=== PATIENT | female | born 1980 | race Caucasian/White ===

== ENCOUNTER 2024-07-15 03:08 | Observation (INO) | payer OTHER, SELFPAY ==
[2024-07-15] VITALS (23 sets, daily range): BP systolic 100–148; BP diastolic 59–90; PULSE 71–114; RESP 10–20; TEMP 36.5–37.6; O2SAT 88–100; BMI 26.1
--- NOTE | 2024-07-15 03:30 | EDS_ITS ---
HPI HPI - GI History of Present Illness Chief Complaint: Abd Pain Informant: patient and spouse/S.O. Narrative Narrative: Presents with spouse evaluation epigastric pain to her back waking her at midnight less than 4 hours prior to arrival. Nausea vomiting x 3. Close her eyes therefore did not evaluate the color no diarrhea. No abdominal surgeries. No urinary symptoms. No fever chills or sweats. No history of similar. She does drink 2-3 alcoholic drinks each night. No history of pancreatitis. No allergies to any medicines. Prior similar symptoms: No PFSH PFSH Medical History Depression Anxiety Asthma Colon polyps Home Medications ?Medication ?Instructions ?Recorded ?Last Taken ?Type albuterol sulfate 90 mcg/actuation 2 puff inhalation Q 4H PRN PRN 07/15/24 Unknown History aerosol inhaler shortness of breath or wheez ing loratadine 10 mg tablet 10 mg PO DAILY 07/15/24 Unkn own History (Allerclear) lorazepam 0.5 mg tablet 0.25 - 0.5 mg PO BID PRN PRN 07/15/24 Unknown History anxiety Allergy/AdvReac Type Severity Reaction Status Date / Time No Known Allergies Allergy Verified 07/15/24 03:09 Social History Smoking Status: Never smoker ROS ROS ED Constitutional Constitutional ED: Denies chills, fever(s) or sweats ENT ENT ED: Denies sore throat Cardiovascular Cardiovascular: Denies chest pain, leg edema, palpitations or racing heartbeat Respiratory/Chest Respiratory/Chest: Denies cough, dyspnea or dyspnea on exertion Gastrointestinal Gastrointestinal: Reports abdominal pain, nausea and vomiting; Denies diarrhea Genitourinary Genitourinary ED: Denies dysuria, hematuria or urinary frequency Musculoskeletal Musculoskeletal: Denies back pain, extremity pain or neck pain Integumentary Denies rash or wounds Neurologic Neurologic: Denies headache(s), paresthesias or weakness EXAM Physical Exam Const Vital Signs: 07/15/24 03:10 07/15/24 05:09 07/15/24 07:00 Temperature 98.1 F Temperature Source Oral Pulse Rate 71 79 79 Respiratory Rate 16 16 16 Blood Pressure 119/81 H 122/69 H 124/74 H Blood Pressure Mean 93 86 90 Pulse Ox 98 100 97 Oxygen Delivery Method Room Air Room Air Room Air Positive well nourished and well developed General Appearance ED: well developed and NAD HEENT Reports moist mucous membranes normocephalic and atraumatic Eyes General Eye ED: Yes normal appearance of both eyes Neck full ROM Chest Wall Chest: Negative for tenderness Resp normal respiratory effort and normal air movement Effort and Inspection: symmetric chest movement; Negative for respiratory distress Cardio regular rate, regular rhythm and no murmurs Peripheral Pulses: pulses 2+ throughout GI normal to inspection, nondistended, normoactive bowel sounds GI Narrative: Tender epigastric and right upper quadrant, negative McBurney's Palpation: Negative for rebound tenderness present Extremity normal to inspection General Extremety ED: Negative for edema or tenderness General Extremity: Negative for edema Neuro oriented x3 and no sensory deficits noted Sensorium / Orientation: awake and alert Skin no rashes or lesions noted and no wounds MDM MDM MDM Narrative Medical decision making narrative: Interventions / MDM: Differential diagnosis: Abdominal pain, nausea and vomiting, cholelithiasis, cholecystitis Diagnosis considered but do not suspect: Pancreatitis however lipase and CT normal. My EKG interpretation: N/A Imaging independently reviewed and interpreted by myself: CT abdomen pelvis: Discussion with radiologist liver hemangioma, mild periportal edema distended gallbladder. Uterine fibroids and mild free fluid in the pelvis. Right upper q uadrant ultrasound: Cholelithiasis External documents reviewed: N/A Test considered but not ordered:N/A ED course: Tender epigastric right upper quadrant pain to her back. IV established will check abdominal labs, fluids morphine Zofran Pepcid ordered. CT scan abdomen pelvis for further evaluation. 0400: White count 16. hCG negative. Awaiting CT and results of other labs. 0635: Labs normal electrolytes lipase and liver enzymes. Pain returning epigastric right upper quadrant. Additional morphine Zofran ordered. With distended gallbladder and leukocytosis will order for right upper quadrant ultrasound for further evaluation. 0820: Ultrasound notes cholelithiasis, no inflammatory changes noted. Reevaluation localized pain right upper quadrant. With her leukocytosis, concerns for clinical cholecystitis. Will discuss with on-call surgeon for disposition plans. I discussed with Dr. Hurtado, will start antibiotics. Will admit under his service. Patient updated. Re-evaluation: stable Disposition discussed with patient/family/significant other: Patient significant other Case discussed with consulting clinician: General surgeon This note was generated with Monkeysee dictation software. It may contain incorrect words, spelling, and punctuation that were not noted in checking the note before signing. Lab Data Attestation: I reviewed the patient's lab results. Labs: Laboratory Results - last 24 hr 07/15/24 03:39 WBC 16.3 H RBC 4.48 Hgb 13.9 Hct 39.9 MCV 89.1 MCH 31.0 MCHC 34.8 RDW Std Deviation 36.9 RDW Coeff of [place] 11.5 L Plt Count 279 MPV 10.9 Immature Gran % (Auto) 0.600 Neut % (Auto) 89.9 H Lymph % (Auto) 7.1 L [place] % (Auto) 1.8 Eos % (Auto) 0.2 Baso % (Auto) 0.4 Absolute Neuts (auto) 14.7 H Absolute Lymphs (auto) 1.15 Nucleated RBC % 0 Sodium 142 Potassium 3.9 Chloride 105 Carbon Dioxide 31.0 Anion Gap 6 BUN 10 Creatinine 0.76 Estim Creat Clear Calc 101.31 Est GFR (MDRD) Af Amer 106 Est GFR (MDRD) Non-Af 88 BUN/Creatinine Ratio 13.1 Glucose 151 H Calcium 9.4 Total Bilirubin 0.20 Direct Bilirubin 0.13 AST 10 L ALT 25 Alkaline Phosphatase 53 Total Protein 7.3 Albumin 3.9 Globulin 3.4 Lipase 35 Serum , Qual NEGATIVE Radiography Diagnostic Testing: Clinical Impression(s) from Imaging Studies Abdomen/Pelvis CT 07/15/24 03:30 IMPRESSION: Hypodense enhancing lesion in the left hepatic lobe is demonstrated. This most likely represents hemangioma. Small hypodense lesion in the right hepatic lobe, cyst or hemangioma. Mild periportal edema. This can be seen in hepatitis. Normally distended loops of small bowel with air-fluid levels may indicate developing gastroenteritis. Multiple uterine fibroids. Enhancing nodule in the right ovary. Consider elective ultrasound for further evaluation if indicated. Small amount of free fluid in the cul-de-sac. One or more dose reduction techniques were used (e.g., Automated exposure control, adjustment of the mA and/or kV according to patient size, use of iterative reconstruction technique). Reading Location: [facility] Gallbladder Ultrasound 07/15/24 07:13 IMPRESSION: Cholelithiasis. Reading Location: [facility] Discharge Plan Triage Chief Complaint: Abd Pain ED Provider: Marcos Casiano Dx/Rx/DC Orders Prescriptions: No Action albuterol sulfate 90 mcg/actuation HFA aerosol inhaler 2 puff INHALATION Q4H PRN PRN (Reason: shortness of breath or wheezing) lorazepam 0.5 mg tablet 0.25 - 0.5 mg PO BID PRN PRN (Reason: anxiety) loratadine [Allerclear] 10 mg tablet 10 mg PO DAILY Primary Care Provider: Eileen Alexis Referrals: Eileen Alexis MD [Primary Care Provider] - Print Language: Uzbek
--- NOTE | 2024-07-15 03:30 | CT_ITS ---
PROCEDURE: ABDOMEN/PELVIS W IV CONT ONLY REASON FOR EXAM: Bandlike abdominal pain radiating to middle of the back with nausea and vomiting. TECHNIQUE: Abdomen and pelvis CT with intravenous contrast. IV CONTRAST: Isovue 370, 91 mL. COMPARISON: No relevant prior FINDINGS: Lung bases: Clear Liver: A 1.4 cm enhancing hypodense nodule in the left hepatic lobe, axial image 31. A 0.9 cm hypodense nodule in the right hepatic lobe, axial image 51. Mild periportal edema. Gallbladder: Mildly distended. No evidence of gallstones. Spleen: Unremarkable. Pancreas: Unremarkable. Adrenals: Unremarkable. Kidneys: Unremarkable. Bladder: Unremarkable. Reproductive Organs: Anteverted uterus. Multiple uterine leiomyomas. Right ovary measures 4.2 times 2 point 9 cm. An irregular enhancing nodule in the right ovary measuring 2.5 x 2.4 cm, axial image 102. Left ovary measures 2.9 x 2.4 cm, axial image 101. Bowel: Scattered air-fluid levels in the small bowel. Fecal debris is seen throughout the colon. No abnormally distended loops of small bowel. Appendix: Normal. Lymph nodes: No suspicious lymph node enlargement. Vasculature: Major vascular structures are unremarkable. Peritoneum / Retroperitoneum: Small amount of fluid in the cul-de-sac. Bones: Unremarkable. CT/Abdomen/Pelvis W IV Cont ONLY IMPRESSION: Hypodense enhancing lesion in the left hepatic lobe is demonstrated. This most likely represents hemangioma. Small hypodense lesion in the right hepatic lobe, cyst or hemangioma. Mild periportal edema. This can be seen in hepatitis. Normally distended loops of small bowel with air-fluid levels may indicate deve loping gastroenteritis. Multiple uterine fibroids. Enhancing nodule in the right ovary. Consider elective ultrasound for further evaluation if indicated. Small amount of free fluid in the cul-de-sac. One or more dose reduction techniques were used (e.g., Automated exposure contr ol, adjustment of the mA and/or kV according to patient size, use of iterative reconstruction technique). Reading Location: [facility]
[2024-07-15] MEDS: 0.9% Normal Saline (1000mL) 1,000 ML 999 ML IV ×2 (03:37→09:13)
[2024-07-15] MEDS: Ondansetron 4 MG/2 ML Vial IV (03:37)
[2024-07-15] MEDS: Morphine 4 MG/ML Syringe IV (03:37)
[2024-07-15 03:45] LABS: Absolute Lymphocyte Count 1.15 X10^3/uL (0.83-4.51); Absolute Neutrophil Count 14.7 X10^3/uL (2.0-7.7); Basophil# 0.06 X10^3/uL; Basophil% 0.4 % (0-1); Eosinophil# 0.03 X10^3/uL; Eosinophils% 0.2 % (0-5); Hematocrit 39.9 % (37-47); Hemoglobin 13.9 g/dL (12.0-15.0); Lymphocyte # 1.15 X10^3/ul (0.83-4.51); Lymphocyte % 7.1 % (19-41); Mean Corp Hgb Conc 34.8 g/dL (32-36); Mean Corpuscular Volume 89.1 fL (81-99); Mean Platelet Vol. 10.9 fl (6.2-12.0); Monocyte% 1.8 % (0-10); NRBC Flagged by Analyzer 0 % (0-5); Neutrophil # 14.67 X10^3/uL (2.7-7.7); Neutrophil % 89.9 % (47-70); Platelet Count 279 K/mm3 (150-450); RBC Distribution Width CV 11.5 % (11.6-14.6); RBC Distribution Width SD 36.9 fl (35.1-43.9); Red Blood Count 4.48 M/mm3 (4.2-5.4); White Blood Count 16.3 K/mm3 (4.4-11.0)
[2024-07-15] MEDS: Famotidine 200 MG/20 ML MDV 20 MG in 0.9% Normal Saline (Pres. free 8 ML 300 MG IV (03:46)
[2024-07-15 03:54] LABS: Internal QC Validated? YES +Cl - CLEAR BKGD; Pregnancy, Serum, hCG Quali. NEGATIVE Negative
--- NOTE | 2024-07-15 06:44 | ED.RN ---
Patient medicated 4mg of IV Zofran and 4mg of IV morphine per MD orders during downtime. See downtime charting.
[2024-07-15 07:03] LABS: AST(SGOT) 10 U/L (15-37); Alanine Aminotransfer ALT/SGPT 25 U/L (13-56); Albumin, Serum 3.9 g/dL (3.2-5.0); Alkaline Phosphatase 53 U/L (45-117); Anion Gap 6 (5-15); BUN 10 mg/dL (7-18); BUN/Creat Ratio 13.1 RATIO (10-20); Bilirubin, Direct 0.13 mg/dL (0.00-0.30); Calcium,Total 9.4 mg/dL (8.5-10.1); Chloride 105 mmol/L (98-107); Creatinine, Serum 0.76 mg/dL (0.55-1.02); EST Glomerular Filtration Rate 88 mL/min (>60); Est Glom Filt Rate - Afr Amer 106 mL/min (>60); Estimated Creatinine Clearance 101.31 ml/min; Globulin 3.4 g/dL (2.2-4.2); Glucose 151 mg/dL (74-106); Lipase 35 U/L (13-75); Potassium 3.9 mmol/L (3.5-5.1); Protein, Total 7.3 g/dL (6.4-8.2); Sodium Level 142 mmol/L (136-145)
--- NOTE | 2024-07-15 07:13 | US_ITS ---
PROCEDURE: GALLBLADDER REASON FOR EXAM: Right upper quadrant pain. COMPARISON: No relevant prior. FINDINGS: Liver: Sagittal measurement of 17.3 cm. Normal echogenicity. Homogeneous parenchyma. Gallbladder: Multiple hyperechogenic foci. No wall thickening or pericholecystic edema. Common bile duct: 0.9 cm . Pancreas: Visualized portions are sonographically unremarkable. Right kidney is unremarkable. 11.5 x 5.6 x 4.8 cm. Right renal cortex measures 1.4 cm. US/Gallbladder IMPRESSION: Cholelithiasis. Reading Location: [facility]
[2024-07-15] MEDS: Piperacil/Tazobactam 4.5 GM in 0.9% Normal Saline (100mL MB+) 100 ML IV (09:14)
--- NOTE | 2024-07-15 10:53 | EKG12_ITS ---
Test Reason : REPEAT Blood Pressure : */* mmHG Vent. Rate : 82 BPM Atrial Rate : 82 BPM P-R Int : 144 ms QRS Dur : 74 ms QT Int : 394 ms P-R-T Axes : 52 58 43 degrees QTcB Int : 460 ms Normal sinus rhythm Normal ECG No previous ECGs available Confirmed by NIA GARCIA, СЕРГЕЙ ([id number]), editor dictionary TORIBIO MCDANIEL ([id number]) on 07/15/2024 2:46:26 PM Referred By: DAJUAN Confirmed By: СЕРГЕЙ KRAMER MD
--- NOTE | 2024-07-15 11:17 | PCM.HP.STD ---
HPI - General General Date of Admission: 07/15/24 Date of Service: 07/15/24 Chief Complaint: Epigastric abdominal pain HPI Narrative KATE STEELE, is a 44 F who presented overnight to the [facility] emergency department with abdominal pain in the upper abdomen that started around midnight last night. She states that she had [place] food for dinner around 430 or 5 PM. The pain started around midnight after she was asleep. This pain awoken her from sleep and was also associated with nausea and vomiting x 3. She states she is really never had similar pain. She denies diarrhea. No other sick contacts. She was seen and evaluated by the ER staff. She was found to have a white blood cell count of 16,000. The rest of her LFTs were unremarkable CT scan showed a distended gallbladder and some mild periportal edema. Subsequent gallbladder ultrasound performed this morning showed gallstones but no gallbladder wall thickening or pericholecystic fluid. Given her persistent pain and elevated white count, she was admitted for planned cholecystectomy. She was started on IV antibiotics. Has had no previous abdominal surgery. I saw the patient in the emergency department this morning. She states that her pain was much better than when she came in but is still present. She currently rated her pain at about a 2 out of 10. [facility] Medical History (Updated 07/15/24 @ 11:[address] Burke Hurtado MD) Symptomatic cholelithiasis Depression Anxiety Asthma Colon polyps Home Medications ?Medication ?Instructions ?Recorded ?Last Taken ?Type albuterol sulfate 90 mcg/actuation 2 puff inhalation Q4H PRN PRN 07/15/24 Unknown History aerosol inhaler shortness of breath or wheezing loratadine 10 mg tablet 10 mg PO DAILY 07/15/24 Unknown History (Allerclear) lorazepam 0.5 mg tablet 0.25 - 0.5 mg PO BID PRN PRN 07/15/24 Unknown History anxiety Allergy/AdvReac Type Severity Reaction Status Date / Time No Known Allergies Allergy Verified 07/15/24 03:09 no significant family history no surgical history Social History Smoking Status: Never smoker ROS Constitutional Constitutional: Reports systems reviewed and no addt'l complaints, except as documented Eyes Eyes: Reports systems reviewed and no addt'l complaints, except as documented ENT HEENT: Reports systems reviewed and no addt'l complaints, except as documented Cardiovascular Cardiovascular: Reports systems reviewed and no addt'l complaints, except as documented Respiratory/Chest Respiratory/Chest: Reports systems reviewed and no addt'l complaints, except as documented Gastrointestinal Gastrointestinal: Reports systems reviewed and no addt'l complaints, except as documented Vital Signs Vital Signs Vital Signs: 07/15/24 03:10 07/15/24 05:09 07/15/24 07:00 Temperature 98.1 F Temperature Source Oral Pulse Rate 71 79 79 Respiratory Rate 16 16 16 Blood Pressure 119/81 H 122/69 H 124/74 H Blood Pressure Mean 93 86 90 Pulse Ox 98 100 97 Oxygen Delivery Method Room Air Room Air Room Air 07/15/24 09:00 07/15/24 09:06 07/15/24 09:07 Temperature 98.1 F 98.1 F Temperature Source Oral Pulse Rate 82 82 82 Respiratory Rate 16 16 Blood Pressure 125/74 H 125/74 H 125/74 H Blood Pressure Mean 91 91 91 Pulse Ox 98 98 98 Oxygen Delivery Method Room Air 07/15/24 11:00 Temperature 98.9 F Temperature Source Oral Pulse Rate 81 Respiratory Rate 16 Blood Pressure 116/75 Blood Pressure Mean 88 Pulse Ox 98 Oxygen Delivery Method Room Air Weight Weight: 166 lb 14.239 oz Body Mass Index (BMI) 26.1 Physical Exam Narrative She is alert and oriented x 3. She is in no acute distress. Head is normocephalic and atraumatic. Pupils are equal round and reactive to light. Abdomen is soft and nondistended. She does have some mild epigastric and right upper quadrant tenderness to palpation. No rebound or guarding. Results Lab / Micro Data 07/15/24 03:39 07/15/24 03:39 Labs: Laboratory Results - last 24 hr 07/15/24 03:39: WBC 16.3 H, RBC 4.48, Hgb 13.9, Hct 39.9, MCV 89.1, MCH 31.0, MCHC 34.8, RDW Std Deviation 36.9, RDW Coeff of [place] 11.5 L, Plt Count 279, MPV 10.9, Immature Gran % (Auto) 0.600, Neut % (Auto) 89.9 H, Lymph % (Auto) 7.1 L, [place] % (Auto) 1.8, Eos % (Auto) 0.2, Baso % (Auto) 0.4, Absolute Neuts (auto) 14.7 H, Absolute Lymphs (auto) 1.15, Nucleated RBC % 0, Sodium 142, Potassium 3.9, Chloride 105, Carbon Dioxide 31.0, Anion Gap 6, BUN 10, Creatinine 0.76, Estim Creat Clear Calc 101.31, Est GFR (MDRD) Af Amer 106, Est GFR (MDRD) Non-Af 88, BUN/Creatinine Ratio 13.1, Glucose 151 H, Calcium 9.4, Total Bilirubin 0.20, Direct Bilirubin 0.13, AST 10 L, ALT 25, Alkaline Phosphatase 53, Total Protein 7.3, Albumin 3.9, Globulin 3.4, Lipase 35, Serum , Qual NEGATIVE Imaging Radiology Impression Abdomen/Pelvis CT 07/15/24 03:30 IMPRESSION: Hypodense enhancing lesion in the left hepatic lobe is demonstrated. This most likely represents hemangioma. Small hypodense lesion in the right hepatic lobe, cyst or hemangioma. Mild periportal edema. This can be seen in hepatitis. Normally distended loops of small bowel with air-fluid levels may indicate developing gastroenteritis. Multiple uterine fibroids. Enhancing nodule in the right ovary. Consider elective ultrasound for further evaluation if indicated. Small amount of free fluid in the cul-de-sac. One or more dose reduction techniques were used (e.g., Automated exposure control, adjustment of the mA and/or kV according to patient size, use of iterative reconstruction technique). Reading Location: [facility] Gallbladder Ultrasound 07/15/24 07:13 IMPRESSION: Cholelithiasis. Reading Location: [facility] Assessment & Plan Assessment/Plan (1) Symptomatic cholelithiasis: PLAN: Plan The patient is a 44-year-old female with right upper quadrant pain/epigastric pain most likely related to symptomatic cholelithiasis. She had a white count of 16,000. Given the white count and persistent pain, the decision was made to bring her in to the hospital for planned cholecystectomy. We discussed the details of the planned procedure as well as risks benefits and alternatives. She wishes to proceed. Surgery will occur later this afternoon once an OR becomes available Charges/Coding Visit Charges Inpatient E&M: 57379 Init Hosp L3
[2024-07-15] MEDS: 0.9% Normal Saline (1000mL) 1,000 ML 15 ML IV (14:11)
--- NOTE | 2024-07-15 14:25 | PCM.PRE.AN2 ---
ASA Classification* ASA Classification ASA Classification: 2 Assessment & Plan Anesthesia* Anesthesia Assessment Anesthesia Assessment: Discussed sedation and/or anesthesia options, risks, benefits, and alternatives with patient/parents/legal guardian/POA. Questions invited. The patient/parents/legal guardian/POA seems to understand and agrees to proceed with anesthesia plan. Reviewed the physical assessment, medical history, allergy history and patient home medications list prior to surgery/procedure/anesthetic and documented any changes. Performed airway and anesthesia risk assessments. Anesthesia Type Anesthesia Type: General History Source History Obtained from:: Patient and Chart Anesthesia Focused Assessment* Temperature: 98.9 F Pulse Rate: 81 Blood Pressure: 116/75 Respiratory Rate: 16 Pulse Ox: 98 Oxygen Delivery Method: Room Air Airway Assessment Mouth opens: >3 cm Mallampati Score: III Teeth Condition: Caps/Crowns ([place] left lower molar. It is tight.) Neck Range of motion (ROM): Full ROM Focused Labs Anesthesia Preop lab: CBC WBC 16.3 K/mm3 (4.4-11.0) H 07/15/24 03:39 07/15/24 RBC 4.48 M/mm3 (4.2-5.4) 07/15/24 03:39 07/15/24 Hgb 13.9 g/dL (12.0-15.0) 07/15/24 03:39 07/15/24 Hct 39.9 % (37-47) 07/15/24 03:39 07/15/24 Plt Count 279 K/mm3 (150-450) 07/15/24 03:39 07/15/24 CHEMISTRY Potassium 3.9 mmol/L (3.5-5.1) 07/15/24 03:39 07/15/24 Sodium 142 mmol/L (136-145) 07/15/24 03:39 07/15/24 BUN 10 mg/dL (7-18) 07/15/24 03:39 07/15/24 Creatinine 0.76 mg/dL (0.55-1.02) 07/15/24 03:39 07/15/24 Glucose 151 mg/dL (74-106) H 07/15/24 03:39 07/15/24 TSH 0.77 uIU/mL (0.358-3.74) 07/26/15 13:31 07/26/15 COAG Urine Test Negative Negative 07/26/15 13:31 07/26/15 Pre-Assessment Diagnosis/Proposed Procedure Planned Operative Procedure(s): Laparoscopic cholecystectomy Anesthesia History 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 When Was Last Pacemaker Check n 07/15/24 10:42 QUESTION #4 FULL TEXT: You/Your Family Experience fever (hyperthermia) with Anesthesia Last Oral Intake Last Oral intake: Last Oral Intake NPO since 00:00 07/15/24 10:42 Meds taken in AM with sips of water? Meds patient instructed to take am of surgery PONV PONV - bullard operator: PONV - bullard operator Female HX of Motion Sickness HX of N/V After Surgery Non-Smoker Duration of Surgery greater than 60 minutes Number of Risk Factors PONV Score Height & Weight Height & Weight: Anesthesia: Height & Weight Height 5 ft 7 in 07/15/24 10:42 Weight: 75.7 kg 07/15/24 10:42 Body Mass Index (BMI) 26.1 07/15/24 10:42 Respiratory Assessment Respiratory Assessment - bullard operator: Respiratory Tract Infection Hx - bullard operator Hx Respiratory Tract Infection No 07/15/24 10:42 Any additional information?: Yes Hx Respiratory Tract Infection: Yes (Patient had a cold last week. Mostly resolved at this point) STOP Sleep Apnea STOP Sleep Apnea - bullard operator: STOP Sleep Apnea - bullard operator Hx Hypertension No 07/15/24 10:42 Hx Sleep Apnea No 07/15/24 10:42 CPAP BIPAP Do you snore loudly (louder No 07/15/24 10:42 than talking or can be heard Do you often feel tired/ No 07/15/24 10:42 fatigued/ sleepy during daytime? Has anyone observed you stop No 07/15/24 10:42 breathing during sleep? STOP Results Negative 07/15/24 10:42 QUESTION #5 FULL TEXT : Do you snore loudly (louder than talking or can be heard through closed doors)? 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 Specify any problems Hx of Preganancy in last 3 No 07/15/24 10:42 Months Nurse Filling Out Transfusion RKALIKASI 07/15/24 10:42 & Questions: Date: 07/15/24 07/15/24 10:42 Time: 11:04 07/15/24 10:42 Patient unable to answer at this time (ie. confused, unrespo /Reproduction History /Reproductive History - bullard operator: /Reproductive Hx- bullard operator Hx Now No 07/15/24 10:42 Gestational Age (in weeks): EDC: Hx Hx Para Hx Section SAB No 07/15/24 10:42 Active Medications Active Medications: Current Medications Generic Name Dose Route Start Last Admin Trade Name Freq PRN Reason Stop Dose Admin Acetaminophen 650 mg 07/15/24 10:42 Acetaminophen 325 Mg Tablet PO Q6H PRN PRN Pain 1-10 Or Fever >100.7 Piperacillin Sod/Tazobactam 50 mls @ 12.5 mls/hr 07/15/24 14:00 Sod 3.375 gm/ Sodium Chloride IV Q8 URMILA Sodium Chloride 1,000 mls @ 15 mls/hr 07/15/24 14:10 07/15/24 14:11 IV 07/21/24 03:29 15 mls/hr .Q48H URMILA Administration Protocol Ondansetron HCl 4 mg 07/15/24 10:42 Ondansetron 4 Mg/2 Ml Vial IV Q8H PRN PRN NAUSEA/VOMITING Oxycodone HCl 2.5 - 5 mg 07/15/24 10:42 Oxycodone 5 Mg Tablet PO Q4H PRN PRN Pain Score 4-10 PFSH Medical History (Updated 07/15/24 @ 11:[address] Burke Hurtado MD) Symptomatic cholelithiasis Depression Anxiety Asthma Colon polyps Medical History no medical history Home Medications ?Medication ?Instructions ?Recorded ?Last Taken ?Type albuterol sulfate 90 mcg/actuation 2 puff inhalation Q4H PRN PRN 07/15/24 Unknown History aerosol inhaler shortness of breath or wheezing loratadine 10 mg tablet 10 mg PO DAILY 07/15/24 Unknown History (Allerclear) lorazepam 0.5 mg tablet 0.25 - 0.5 mg PO BID PRN PRN 07/15/24 Unknown History anxiety Allergy/AdvReac Type Severity Reaction Status Date / Time No Known Allergies Allergy Verified 07/15/24 03:09 Family History no significant family his Surgical History no surgical history Social History Smoking Status: Never smoker Review of Systems (Anesthesia) ROS Narrative System reviewed and no additional complaints, except as documented. Physical Exam Resp normal air movement and clear to auscultation bilaterally
--- NOTE | 2024-07-15 14:30 | GALL_PTH ---
PATIENT: KATE STEELE LOC: MS3 U#:[id number] AGE/SX: 44/F [place] [facility] [place]: Dr. Burke Hurtado MD : 1980 BED: 1 DIS: 07/16/2024 SPEC #: [id number] RECD: 07/16/24 09:50 STATUS: STEPHANIE FLOYD #: [id number] KATHY: 07/15/24 14:[address]: Burke Hurtado DEPT: SURGICAL PATHOLOGY RECD BY: Pinky Villanueva ENTERED: 07/16/24 10:45 SP TYPE: ROSCOE MONTALVO DR: Dr. Eileen Alexis MD Tissues: Gallbladder, NOS Procedures: Surgery Specimen Level III HEADER OPERATION: Laparoscopic cholecystectomy with IOC PRE-OP DIAGNOSIS: Symptomatic cholelithiasis TISSUE SUBMITTED: Gallbladder MICROSCOPIC DIAGNOSIS Gallbladder, cholecystectomy: Chronic ulcerated cholecystitis, cholelithiasis and cholesterolosis. SJ. 07/19/2024 MICROSCOPIC DESCRIPTION Slides are reviewed. GROSS DESCRIPTION Received is one container labeled with the patient's name and designated gallbladder. The specimen consists of a gallbladder measuring 8 cm in length and up to 4 cm in diameter. The external surface is pink-doran, smooth and glistening for the most part. Focally it is granular, hemorrhagic and contains cautery artifact. The gallbladder contains green yellow mucoid bile and multiple yellow mulberry stones and stone fragment measuring in aggregate 4.5 x 4.5 x 1.5 cm and 0.1 to 1.5 cm in greatest dimension. The mucosa also shows several yellowish streaks consistent with cholesterolosis. The mucosa is bile-stained and without any mass lesions. The gallbladder wall measures up to 0.3 cm in thickness. Web Press Jogger sections from the gallbladder and the cystic duct are submitted in one cassette. / SJ:mr 07/16/2024 TC:3 CPT: 77609
[2024-07-15] MEDS: Piperacil/Tazobactam 3.375 GM in 0.9% Normal Saline (50mL MB+) 50 ML IV ×2 (14:50→22:07)
--- NOTE | 2024-07-15 15:00 | RAD_ITS ---
EXAM: Intraoperative fluoroscopy, also with fluoroscopic images obtained CLINICAL HISTORY: Cholecystectomy. COMPARISON: None TECHNIQUE: Intraoperative fluoroscopy was obtained, along with numerous cholestatic images during contrast injection to the cystic duct. RAD/Cholangiogram/ O R,Initial IMPRESSION: Intraoperative fluoroscopy was obtained, along with numerous cholestatic images during contrast injection to the cystic duct. No residual stone is seen within visualized areas. Reading Location: [id number]
--- NOTE | 2024-07-15 15:00 | RAD_ITS ---
EXAM: Intraoperative fluoroscopy, also with fluoroscopic images obtained CLINICAL HISTORY: Cholecystectomy. COMPARISON: None TECHNIQUE: Intraoperative fluoroscopy was obtained, along with numerous cholestatic images during contrast injection to the cystic duct. RAD/O.R. Fluoro for C-Arm IMPRESSION: Intraoperative fluoroscopy was obtained, along with numerous cholestatic images during contrast injection to the cystic duct. No residual stone is seen within visualized areas. Reading Location: [id number]
[2024-07-15] MEDS: Bupiv/Epi 0.25% 30 ML Vial (15:16)
--- NOTE | 2024-07-15 16:30 | PCM.POST.ANE ---
Anesthesia: Postop Eval I Current Vital Signs Temperature: 98.4 F Pulse Rate: 89 Blood Pressure: 139/86 Respiratory Rate: 20 Pulse Ox: 96 Oxygen Delivery Method: Room Air Assessment Airway patent: Yes Spontaneous unlabored respirations: Yes Mental status: Awake nausea: No Vomiting: No Anesthesia Complication: No Fluid Hydration Crystalloid volume administer (ml): 900 Total IV fluid infused: 900 Progress Note Anesthesia document: Postop Eval 1 completed: Yes
--- NOTE | 2024-07-15 16:40 | PCM.OPRPT ---
Procedures Digestive 40xxx-49xxx: [id number] Laparo cholecystectomy/graph Operative Report (Standard) Operative Information Date of Procedure: 07/15/24 Pre-Operative Diagnosis: Acute cholecystitis/cholelithiasis Post-Operative Diagnosis: Same Surgery/Procedure Performed: Laparoscopic cholecystectomy with intraoperative cholangiograms grocery store courtesy clerk: Yes Photo Retoucher: [place] Tasks completed by assistant professor of drama: Closing, Trocar and Retracting Additional visitor services assistant?: No Type of Anesthesia: General and Local RN Documented Start/Stop Times: Operation Date: 07/15/24 14:30 Case Time Into Pre-Op 07/15/24 13:56 Out of Pre-Op 07/15/24 14:34 Into Room 07/15/24 14:42 Anesthesia Start 07/15/24 15:03 Procedure Start 07/15/24 15:03 Procedure End 07/15/24 16:14 Anesthesia End 07/15/24 16:26 Out of Room 07/15/24 16:26 Into Recovery 07/15/24 16:28 Procedure Start Time: 15:03 Procedure Stop Time: 16:14 Select all DRAINS/GRAFTS/IMPLANTS that apply: None Special Medications: Zosyn IV Estimated Blood Loss: 5 mL Specimen collected: Yes Description of specimen(s) removed: Gallbladder Description of surgery: The patient is a 44-year-old female who presented to the emergency room overnight with epigastric and right upper quadrant pain. She was found to have gallstones and had an elevated white blood cell count. Based on the white count and pain, we made the decision to admit her for cholecystectomy. We discussed the details of the planned procedure including the risks benefits and alternatives. She wished to proceed. She was brought to the operating room today following informed consent. Preoperative antibiotics were given. A timeout was performed. She was placed supine the operative table with arms outstretched on arm boards. Her abdomen is then prepped and draped in the usual sterile manner. A 5 mm incision was made just below the umbilicus which a 5 mm trocar was placed optically. This was placed without incident. A 5 mm 0 degree scope was inserted. The abdomen was insufflated. There were no signs of bowel or vascular injury. Next two 5 mm trocars were placed under direct visualization in the right upper quadrant. A 10 mm trocar was placed in the epigastric area. The gallbladder was identified. It was reflected in cephalad direction up and over the liver. The gallbladder wall was somewhat thickened he could certainly see some subcutaneous edema around the gallbladder. This especially true down by the infundibulum. The infundibulum was then dissected carefully. The cystic duct and cystic artery were identified and dissected out circumferentially. A critical view of safety was obtained. There were 2 and only 2 structures going to the gallbladder. The clip home care scheduler was then used to place a clip on the gallbladder side the cystic duct. Scissors were then used to make a small ductotomy. Cholangiogram catheter was then inserted and cholangiograms were then performed using about 10 cc of contrast. This showed good opacification of the biliary tree without any obvious filling defects. The cholangiogram catheter was then removed. 310 mm clips were placed across the cystic duct stump. The cystic artery was then clipped with 2 clips proximally and 1 distally. This too was then transected. After this the gallbladder was then bovied off the undersurface of the liver. There was quite a bit of edema present. Once the gallbladder was free was placed into a bag and brought out through the 10 mm trocar site. We did need to extend the skin as well as the fascial incision to extract the large, stone filled and edematous gallbladder. Once this was performed the trocar was replaced. The right upper quadrant is then copiously irrigated hemostasis was excellent. The fascia at the epigastric incision site was closed using 0 PDS with the aid of the fascial closure device. The remaining trocars were opened up and insufflation was allowed to escape. Local anesthetic was injected into each of the incisions. The incisions were then closed with 4-0 Vicryl. Skin glue was applied as dressing. She was awakened anesthesia and taken to PACU in good condition.\ Marleny MCDERMOTT was utilized as a assistant women's basketball coach. Her role included holding the camera, inserting trocars under my supervision, retracting the gallbladder, and assisting with skin closure Surgical Findings: Normal cholangiograms Complications Complications: No Admit VTE Documentation VTE Present on Admission: No VTE Mechan Device Prophylaxis: SCD's VTE Pharm Prophylaxis ordered?: No Reason prophylaxis not ordered: Treatment Not Indicated
[2024-07-15] MEDS: Acetaminophen 325 MG Tablet 650 MG PO (21:07)
--- NOTE | 2024-07-15 23:42 | POSTOPAN2_ITS ---
Anesthesia Postop Eval I Sum Postop Eval Completion status Anesthesia document: Postop Eval 1 completed: Yes Anesthesia Postop Eval I Summary Anesthesia Postop Eval I Summary: Anesthesia Postop Eval I: Assessment Summary Airway patent Yes 07/15/24 16:31 [email or web address] Spontaneous unlabored Yes 07/15/24 16:31 [email or web address] [email or web address] respirations Mental status Awake 07/15/24 16:31 [email or web address] [email or web address] nausea No 07/15/24 16:31 LIQUOR [email or web address] Vomiting No 07/15/24 16:31 [email or web address] [email or web address] Anesthesia Postop Eval I: Fluid Summary Crystalloid volume administer 900 07/15/24 16:31 [email or web address] (ml) Colloids volume administered ( ml) Blood Product volume administered (ml) Total IV fluid infused 900 07/15/24 16:31 [email or web address] Anesthesia Postop Eval I: Summary Notes Anesthesia Complication No 07/15/24 16:31 [email or web address] [email or web address] Anesthesia Complication Comment: Post-operative progress note Anesthesia: Postop Eval II Evaluation Mental status: Awake and Calm Pain Level: 1 nausea: No Vomiting: No Complications Anesthesia Complication: No
--- NOTE | 2024-07-15 23:42 | PCM.POSTANE2 ---
Anesthesia Postop Eval I Sum Postop Eval Completion status Anesthesia document: Postop Eval 1 completed: Yes Anesthesia Postop Eval I Summary Anesthesia Postop Eval I Summary: Anesthesia Postop Eval I: Assessment Summary Airway patent Yes 07/15/24 16:31 SOLAR FIELD INSTALLATION CREW [email or web address] Spontaneous unlabored Yes 07/15/24 16:31 SOLAR FIELD INSTALLATION CREW MEMBER.[email or web address] respirations Mental status Awake 07/15/24 16:31 SOLAR FIELD INSTALLATION CREW [email or web address] nausea No 07/15/24 16:31 SOLAR FIELD INSTALLATION CREW [email or web address] Vomiting No 07/15/24 16:31 SOLAR FIELD INSTALLATION CREW [email or web address] Anesthesia Postop Eval I: Fluid Summary Crystalloid volume administer 900 07/15/24 16:31 SOLAR FIELD INSTALLATION CREW [email or web address] (ml) Colloids volume administered ( ml) Blood Product volume administered (ml) Total IV fluid infused 900 07/15/24 16:31 SOLAR FIELD INSTALLATION CREW [email or web address] Anesthesia Postop Eval I: Summary Notes Anesthesia Complication No 07/15/24 16:31 SOLAR FIELD INSTALLATION CREW MEMBER.[email or web address] Anesthesia Complication Comment: Post-operative progress note Anesthesia: Postop Eval II Evaluation Mental status: Awake and Calm Pain Level: 1 nausea: No Vomiting: No Complications Anesthesia Complication: No
[2024-07-16 02:11] VITALS: BP 120/71; PULSE 80; RESP 16; TEMP 37.3; O2SAT 98
[2024-07-16] MEDS: oxyCODONE 5 MG Tablet PO ×3 (02:14→12:58)
[2024-07-16] MEDS: Piperacil/Tazobactam 3.375 GM in 0.9% Normal Saline (50mL MB+) 50 ML IV (06:39)
[2024-07-16 06:42] LABS: Absolute Lymphocyte Count 1.31 X10^3/uL (0.83-4.51); Absolute Neutrophil Count 13.2 X10^3/uL (2.0-7.7); Basophil# 0.03 X10^3/uL; Basophil% 0.2 % (0-1); Hematocrit 36.8 % (37-47); Hemoglobin 12.4 g/dL (12.0-15.0); Lymphocyte # 1.31 X10^3/ul (0.83-4.51); Lymphocyte % 8.5 % (19-41); Mean Corp Hgb Conc 33.7 g/dL (32-36); Mean Corpuscular Hgb 30.4 pg (27.0-32.0); Mean Corpuscular Volume 90.2 fL (81-99); Mean Platelet Vol. 11.6 fl (6.2-12.0); Monocyte# 0.84 X10^3/uL; Monocyte% 5.4 % (0-10); NRBC Flagged by Analyzer 0 % (0-5); Neutrophil % 85.4 % (47-70); Platelet Count 283 K/mm3 (150-450); RBC Distribution Width CV 11.6 % (11.6-14.6); RBC Distribution Width SD 38.4 fl (35.1-43.9); Red Blood Count 4.08 M/mm3 (4.2-5.4); White Blood Count 15.5 K/mm3 (4.4-11.0)
[2024-07-16 07:13] LABS: ALB/GLOB Ratio 1.1 RATIO (0.9-2.4); AST(SGOT) 48 U/L (15-37); Alanine Aminotransfer ALT/SGPT 71 U/L (13-56); Albumin, Serum 3.2 g/dL (3.2-5.0); Alkaline Phosphatase 46 U/L (45-117); Anion Gap 4 (5-15); BUN 9 mg/dL (7-18); BUN/Creat Ratio 13.5 RATIO (10-20); Chloride 107 mmol/L (98-107); Creatinine, Serum 0.67 mg/dL (0.55-1.02); EST Glomerular Filtration Rate 102 mL/min (>60); Est Glom Filt Rate - Afr Amer 124 mL/min (>60); Estimated Creatinine Clearance 114.92 ml/min; Globulin 2.8 g/dL (2.2-4.2); Glucose 108 mg/dL (74-106); Potassium 3.5 mmol/L (3.5-5.1); Sodium Level 138 mmol/L (136-145)
[2024-07-16 08:02] VITALS: BP 102/61; PULSE 80; RESP 16; TEMP 36.9; O2SAT 98
--- NOTE | 2024-07-16 08:29 | PCM.PN.SRG ---
Subjective Subjective The patient is doing well this morning. Only complaint is incisional pain near the epigastric incision site. No fevers or chills. She has been eating fine. Pain control has been adequate. She is hopeful for discharge today Objective Data Objective Data Vital Signs: Vital Signs Temp Pulse Resp BP Pulse Ox O2 Del Method O2 Flow Rate 98.4 F 80 16 102/61 98 Room Air 2 07/16/24 08:02 07/16/24 08:02 07/16/24 08:02 07/16/24 08:02 07/16/24 08:02 07/16/24 08:02 07/15/24 18:06 Oxygen Flow Rate (L/min) 2 Oxygen Delivery Method Room Air Weight: 166 lb 14.239 oz Body Mass Index (BMI) 26.1 Intake & Output: Intake and Output for Last 24 Hours 07/14/24 07/15/24 07/16/24 23:59 23:59 23:59 Intake Total 3210 / 3210 50 / 50 Balance 3210 / 3210 50 / 50 Lab / Micro Data 07/16/24 05:16 07/16/24 05:16 Labs: Laboratory Results - last 24 hr 07/16/24 05:16: WBC 15.5 H, RBC 4.08 L, Hgb 12.4, Hct 36.8 L, MCV 90.2, MCH 30.4, MCHC 33.7, RDW Std Deviation 38.4, RDW Coeff of [place] 11.6, Plt Count 283, MPV 11.6, Immature Gran % (Auto) 0.500, Neut % (Auto) 85.4 H, Lymph % (Auto) 8.5 L, [place] % (Auto) 5.4, Eos % (Auto) 0.0, Baso % (Auto) 0.2, Absolute Neuts (auto) 13.2 H, Absolute Lymphs (auto) 1.31, Nucleated RBC % 0, Sodium 138, Potassium 3.5, Chloride 107, Carbon Dioxide 27.0, Anion Gap 4 L, BUN 9, Creatinine 0.67, Estim Creat Clear Calc 114.92, Est GFR (MDRD) Af Amer 124, Est GFR (MDRD) Non-Af 102, BUN/Creatinine Ratio 13.5, Glucose 108 H, Calcium 8.0 L, Total Bilirubin 0.60, AST 48 H, ALT 71 H, Alkaline Phosphatase 46, Total Protein 6.0 L, Albumin 3.2, Globulin 2.8, Albumin/Globulin Ratio 1.1 Radiography Diagnostic Testing: Radiology Impression C-Arm Fluoroscopy 07/15/24 15:00 IMPRESSION: Intraoperative fluoroscopy was obtained, along with numerous cholestatic images during contrast injection to the cystic duct. No residual stone is seen within visualized areas. Reading Location: [id number] Cholangiogram 07/15/24 15:00 IMPRESSION: Intraoperative fluoroscopy was obtained, along with numerous cholestatic images during contrast injection to the cystic duct. No residual stone is seen within visualized areas. Reading Location: [id number] Physical Exam Narrative She is alert and oriented x 3. She is in no acute distress. Abdomen is soft and appropriately tender. Assessment & Plan Assessment/Plan (1) Symptomatic cholelithiasis: PLAN: Plan Patient is a 44-year-old female status post a successful laparoscopic cholecystectomy for acute cholecystitis/cholelithiasis. She is doing well postoperatively on day 1. I feel that she is okay for discharge. She would like to go home. Home-going instructions were discussed with her again. Recommend follow-up in 2 weeks. She may certainly call if any questions or concerns arise Charges/Coding Visit Charges Inpatient E&M: 82663 Subs Hosp L1
--- NOTE | 2024-07-16 08:31 | PCM.DC.SUM ---
Providers Date of Admission: 07/15/24 Date of Discharge: 07/16/24 Primary Care Physician: Dr. Eileen Alexis MD None Reason For Visit: CHOLELITHIASIS Diagnosis Discharge Diagnosis (1) Symptomatic cholelithiasis: Status: Acute Code(s): K80.20 - Calculus of gallbladder without cholecystitis without obstruction Plan Patient is a 44-year-old female status post a successful laparoscopic cholecystectomy for acute cholecystitis/cholelithiasis. She is doing well postoperatively on day 1. I feel that she is okay for discharge. She would like to go home. Home-going instructions were discussed with her again. Recommend follow-up in 2 weeks. She may certainly call if any questions or concerns arise Medications at Discharge Home Medications albuterol sulfate 90 mcg/actuation aerosol inhaler 2 puff inhalation Q4H PRN PRN shortness of breath or wheezing 07/15/24 loratadine 10 mg tablet (Allerclear) 10 mg PO DAILY 07/15/24 lorazepam 0.5 mg tablet 0.25 - 0.5 mg PO BID PRN PRN anxiety 07/15/24 oxycodone-acetaminophen 5 mg-325 mg tablet (Percocet) 1 tab PO Q8H PRN pain 3 days #10 tabs 07/16/24 Hospital Course Operations cholecystecomy Procedures None Summary of Care Provided Minutes Spent on Discharge: 15 Hospital Course: The patient is a 44-year-old female who presented to the [facility] emergency department on the day of admission with complaints of epigastric and right upper quadrant pain. She was seen evaluate by the ER staff. She was found to have a white blood cell count of 16,000. She had persistent pain. All the rest of her labs were fairly unremarkable. Due to her white blood cell count and pain, the decision was made to admit the patient and plan for a laparoscopic cholecystectomy with cholangiograms. This was performed on the date of admission. She tolerated the surgery well. There were no complications or issues. The morning after surgery she states that she is doing well albeit sore at the incisions. She would like to be discharged to home. I think this is appropriate. Home-going instructions were discussed with her. Physical Exam Narrative She is alert and oriented x 3. She is in no acute distress. Abdomen is soft and appropriately tender. Weight / BMI Weight Weight: 166 lb 14.239 oz Body Mass Index (BMI) 26.1 ABG / Lab / Microbiology Data 07/16/24 05:16 07/16/24 05:16 Laboratory: Laboratory Results - last 24 hr 07/16/24 05:16: WBC 15.5 H, RBC 4.08 L, Hgb 12.4, Hct 36.8 L, MCV 90.2, MCH 30.4, MCHC 33.7, RDW Std Deviation 38.4, RDW Coeff of [place] 11.6, Plt Count 283, MPV 11.6, Immature Gran % (Auto) 0.500, Neut % (Auto) 85.4 H, Lymph % (Auto) 8.5 L, [place] % (Auto) 5.4, Eos % (Auto) 0.0, Baso % (Auto) 0.2, Absolute Neuts (auto) 13.2 H, Absolute Lymphs (auto) 1.31, Nucleated RBC % 0, Sodium 138, Potassium 3.5, Chloride 107, Carbon Dioxide 27.0, Anion Gap 4 L, BUN 9, Creatinine 0.67, Estim Creat Clear Calc 114.92, Est GFR (MDRD) Af Amer 124, Est GFR (MDRD) Non-Af 102, BUN/Creatinine Ratio 13.5, Glucose 108 H, Calcium 8.0 L, Total Bilirubin 0.60, AST 48 H, ALT 71 H, Alkaline Phosphatase 46, Total Protein 6.0 L, Albumin 3.2, Globulin 2.8, Albumin/Globulin Ratio 1.1 Radiography Diagnostic Testing: Radiology Impression C-Arm Fluoroscopy 07/15/24 15:00 IMPRESSION: Intraoperative fluoroscopy was obtained, along with numerous cholestatic images during contrast injection to the cystic duct. No residual stone is seen within visualized areas. Reading Location: [id number] Cholangiogram 07/15/24 15:00 IMPRESSION: Intraoperative fluoroscopy was obtained, along with numerous cholestatic images during contrast injection to the cystic duct. No residual stone is seen within visualized areas. Reading Location: [id number] D/C Instructions Discharge Diet: Low fat / Low cholesterol Discharge Activity: Return to Normal Activity and May Shower May shower in (days): 1 Ice area for (Minutes): 30 Lifting Restrictions: Keep lifting under 20 pounds for about 3 to 4 weeks Call your doctor if your incision/area has: Continuous Slow Oozing, Sudden Increased Bleeding, Increased Pain/ Swelling, Increased Redness, Foul Smelling Discharge and Swelling at the incision site Call your doctor if you observe: Fever of 101 or Higher Remove Dressing in: leave until fall off (Skin glue will fall off in about 2 to 3 weeks) Cleanse incision/area with: Soap & Water DC O2, CPAP, BIPAP Needs Home O2 Discharge instructions: No DC home with Oxygen: No Please Follow Up With: Burke Hurtado MD When: 2 weeks Meaningful Use Info Meaningful Use Meaningful Use Diagnoses (Choose all that apply): None applicable Ischemic Stroke Statin Dosing Therapy Reference: STATIN DOSE THERAPY REFERENCE: * Patients > 75 years receive moderate or high dose statin therapy. * Patients 75 years or YOUNGER should receive HIGH intensity statin dose unless contraindicated. You will be required to document reason for non-treatment if statin daily dose does not meet guidelines. HIGH DOSE STATIN THERAPY DAILY Atorvastatin > than or = to 40 mg Rosuvastatin > than or = to 20 mg Amlodipine + Atorvastatin > than or = to 2.5/40 mg Ezetimibe + Simvastatin 10/80 mg Simvastatin 80mg Discharge Plan Admission Admit Date/Time: 07/15/24 09:31 Primary Reason for Your Visit: Acute cholecystitis/cholelithiasis Attending Provider: Burke Hurtado Primary Care Provider: Eileen Alexis Discharge Orders/Prescriptions Prescriptions: New oxycodone-acetaminophen [Percocet] 5-325 mg tablet 1 tab PO Q8H PRN (Reason: pain) 3 Days Qty: 10 0RF Continued albuterol sulfate 90 mcg/actuation HFA aerosol inhaler 2 puff INHALATION Q4H PRN PRN (Reason: shortness of breath or wheezing) lorazepam 0.5 mg tablet 0.25 - 0.5 mg PO BID PRN PRN (Reason: anxiety) loratadine [Allerclear] 10 mg tablet 10 mg PO DAILY Referrals / Follow Up: Eileen Alexis MD [Primary Care Provider] - Disposition Disposition (needs filled in before D/C Order can be placed): Home, Self Care
[2024-07-16] MEDS: Acetaminophen 325 MG Tablet 650 MG PO (11:09)
[2024-07-16] MEDS: Ondansetron 4 MG/2 ML Vial IV (12:58)
[2024-07-16 13:17] VITALS: BP 113/69; PULSE 79; RESP 16; TEMP 37.1; O2SAT 98
== END 2024-07-16 13:16 | disposition home or self-care (01) ==
LOC: ED 09:57 → MS3 10:15
PROVIDERS: Admitting Provider Surgery; Emergency Provider Emergency Medicine; PCP Internal Medicine; Visit Provider Surgery
PROC: (CPT 47610; principal; 2024-07-15 14:10)
DX: K80.12 Calculus of gallbladder with acute and chronic cholecystitis without obstruction (principal); F41.9 Anxiety disorder, unspecified; J45.909 Unspecified asthma, uncomplicated
CPT/HCPCS: 47563; 00790; 99284; 36415; 74177; 74300; 76000; 76705; 80048; 80053; 80076; 83690; 84703; 85025; 88304; 93005; 96361; 96365; 96366; 96375; 99221; 99285; Q9967; A4216; C1769; G0378; J2405

== ENCOUNTER 2025-05-27 15:43 | Emergency (ER) | payer OTHER, SELFPAY ==
[2025-05-27 15:43] VITALS: BP 130/104; PULSE 105; RESP 18; TEMP 36.7; O2SAT 99; BMI 25.6
--- NOTE | 2025-05-27 16:24 | CT_ITS ---
EXAM: CT Abdomen and Pelvis With Intravenous Contrast CLINICAL INDICATION: ABDOMINAL PAIN TECHNIQUE: Axial computed tomography images of the abdomen and pelvis with intravenous contrast. This CT exam was performed using one or more of the following dose reduction techniques: automated exposure control, adjustment of the mA and/or kV according to patient size, and/or use of iterative reconstruction technique. CONTRAST: 100 cc Isovue-300 RADIATION DOSE: CTDIvol = 10.5 mGy, DLP = 612.9 mGy-cm COMPARISON: CT Abdomen Pelvis dated 07/15/2024 FINDINGS: LUNG BASES: Unremarkable. No mass. No consolidation. ABDOMEN: LIVER: Fatty liver. Hypodense lesions of the left and right hepatic lobe, likely cyst or hemangioma, unchanged. GALLBLADDER AND BILE DUCTS: Gallbladder is surgically absent. No ductal dilation. PANCREAS: Unremarkable. No mass. No ductal dilation. SPLEEN: Unremarkable. No splenomegaly. ADRENALS: Unremarkable. No mass. KIDNEYS AND URETERS: Unremarkable. No stones within either kidney. No hydronephrosis. STOMACH AND BOWEL: Fecal retention in the colon consistent with constipation. No obstruction. No mucosal thickening. PELVIS: APPENDIX: Normal appendix. BLADDER: Unremarkable. No mass. REPRODUCTIVE: Multiple uterine fibroids. ABDOMEN and PELVIS: INTRAPERITONEAL SPACE: Unremarkable. No free air. No significant fluid collection. BONES/JOINTS: No acute fracture. No dislocation. SOFT TISSUES: Unremarkable. VASCULATURE: Unremarkable. No abdominal aortic aneurysm. LYMPH NODES: Unremarkable. No enlarged lymph nodes. CT/Abdomen/Pelvis W IV Cont ONLY IMPRESSION: 1. Normal appendix. 2. Fatty liver. Hypodense lesions of the left and right hepatic lobe, likely cyst or hemangioma, unchanged. 3. Fecal retention in the colon consistent with constipation. 4. No obstructive uropathy. 5. Multiple uterine fibroids. Reading Location: [id number]
--- NOTE | 2025-05-27 16:25 | ED.VIS.GI ---
HPI HPI - GI History of Present Illness Chief Complaint: Abd Pain Abdominal Pain/Flank Pain Onset: Days (2) Context: Sudden Onset Timing: Continuous Quality: Sharp Location: LUQ Worsened by: - (Walking) Relieved by: Nothing Nausea/Vomiting/Emesis GI Symptom: Positive for Nausea and Vomiting Quality: Positive for Nonbilious Diarrhea/Melena/Hematochezia GI Symptom: Negative for Diarrhea, Melena or Hematochezia Associated Symptoms Associated Symptoms: Negative for Dysuria, Frequency or Hematuria Narrative Narrative: Patient presents with abdominal pain and back pain that began 2 days ago. Patient states it is gradually getting worse. Patient states it began rather suddenly. Patient describes it as sharp. Patient states it starts in her back and then radiates to her left upper abdomen. Patient states it is worse when she walks. Patient states nothing makes it better. Patient states she has been vomiting up yellow emesis. Patient states that there was 1 episode where there was something that look like coffee grounds. Patient states this resolved. Patient has had no further episodes of coffee-ground emesis. Patient denies any hematemesis. Patient denies any diarrhea, melena, or hematochezia. Patient denies any dysuria, frequency, or hematuria. [facility] Medical History Acute cholecystitis due to biliary calculus Symptomatic cholelithiasis Depression Anxiety Asthma Colon polyps Home Medications ?Medication ?Instructions ?Recorded ?Last Taken ?Type albuterol sulfate 90 mcg/actuation 2 puff inhalation Q4H PRN PRN 07/15/24 Unknown History aerosol inhaler shortness of breath or wheezing lorazepam 0.5 mg tablet 0.25 - 0.5 mg PO BID PRN PRN 07/15/24 Unknown History anxiety hydrocodone-acetaminophen 5-325mg 1 tab PO Q6H PRN PRN Pain 3 days 05/27/25 Unknown Rx 5mg-325mg #10 TABLETS ondansetron 4 mg disintegrating 4 mg PO Q8H PRN PRN Nausea #10 tabs 05/27/25 Unknown Rx tablet Allergy/AdvReac Type Severity Reaction Status Date / Time No Known Allergies Allergy Verified 05/27/25 15:43 Family History no significant family his Surgical History S/P cholecystectomy Social History Smoking Status: Never smoker ROS ROS ED Constitutional Constitutional ED: Denies chills or fever(s) Eyes Eyes: Denies blurry vision or change in vision ENT ENT ED: Denies rhinorrhea or sore throat Cardiovascular Cardiovascular: Denies chest pain or palpitations Respiratory/Chest Respiratory/Chest: Denies cough or dyspnea Gastrointestinal Gastrointestinal: Reports abdominal pain, nausea and vomiting Genitourinary Genitourinary ED: Denies dysuria or hematuria Musculoskeletal Musculoskeletal: Reports back pain; Denies neck pain Integumentary Denies abscess or rash Neurologic Neurologic: Reports headache(s); Denies weakness Allergic/Immunologic Allergic/Immunologic ED: Denies mouth swelling or urticaria EXAM Physical Exam Const Vital Signs: 05/27/25 15:43 05/27/25 17:43 05/27/25 19:00 Temperature 98.1 F Temperature Source Oral Pulse Rate 105 H 79 Respiratory Rate 18 15 Blood Pressure 130/104 H 106/74 110/80 Blood Pressure Mean 112 84 90 Pulse Ox 99 96 97 Oxygen Delivery Method Room Air Room Air Room Air Positive well nourished and well developed General Appearance ED: well developed and NAD HEENT Reports moist mucous membranes normocephalic and atraumatic Neck supple and no JVD Resp normal respiratory effort and clear to auscultation bilaterally Cardio regular rate and regular rhythm GI non-distended Palpation: soft and tender epigastric, LLQ, LUQ and RUQ; Negative for guarding or rebound tenderness present Extremity full ROM Neuro CN's II-XII intact bilaterally, moves all extremities and no sensory deficits noted Sensorium / Orientation: alert Motor Exam: strength 5/5 throughout Psych mental status grossly normal MDM MDM MDM Narrative Medical decision making narrative: Differential diagnosis includes pancreatitis, peptic ulcer disease, duodenal ulcer, bowel obstruction, perforation, electrolyte abnormality, and dehydration. CBC will be obtained to assess for leukocytosis and anemia. Comprehensive metabolic profile will be obtained to assess for hepatic function, renal function, and and electrolyte abnormality. Lipase will be obtained to assess for pancreatitis. Urinalysis will be obtained to assess for urinary tract infection and hematuria. Serum hCG will be obtained to assess for . CT scan of the abdomen pelvis will be obtained to assess for bowel obstruction, perforation, pancreatitis, and pyelonephritis. History & Record Review Additional record(s) reviewed:: Prior labs Lab Data Attestation: I reviewed the patient's lab results. Lab results narrative: CBC was reviewed. There is a leukocytosis of 15.2. This is consistent with previous results. Comprehensive metabolic profile was reviewed. Glucose was mildly elevated at 124 and ALT was slightly elevated at 51. The remainder is within normal limits. Lipase was reviewed and was normal at 26. Serum hCG was reviewed and was negative. Urinalysis was reviewed. There is no evidence of urinary tract infection or hematuria. Labs: Laboratory Results - last 24 hr 05/27/25 05/27/25 16:05 17:05 WBC 15.2 H RBC 4.93 Hgb 15.1 H Hct 44.2 MCV 89.7 MCH 30.6 MCHC 34.2 RDW Std Deviation 38.4 RDW Coeff of [place] 11.8 Plt Count 383 MPV 10.5 Immature Gran % (Auto) 0.900 Neut % (Auto) 90.8 H Lymph % (Auto) 4.7 L Simpson % (Auto) 2.6 Eos % (Auto) 0.7 Baso % (Auto) 0.3 Absolute Neuts (auto) 13.8 H Absolute Lymphs (auto) 0.72 L Nucleated RBC % 0 Sodium 139 Potassium 4.2 Chloride 104 Carbon Dioxide 24.6 Anion Gap 11 BUN 14 Creatinine 0.73 Estim Creat Clear Calc 103.49 Est GFR (MDRD) Non-Af 104 BUN/Creatinine Ratio 19.0 Glucose 124 H Calcium 9.3 Total Bilirubin 0.78 AST 25 ALT 51 H Alkaline Phosphatase 61 Total Protein 6.9 Albumin 4.5 Globulin 2.5 Albumin/Globulin Ratio 1.8 Lipase 26 Serum , Qual NEGATIVE Urine Color Straw Urine Clarity Clear Urine pH 6.5 Ur Specific [place] 1.010 Urine Protein 30 H Urine Glucose (UA) Normal Urine Ketones Negative Urine Occult Blood 25 H Urine Nitrite Negative Urine Bilirubin Negative Urine Urobilinogen Normal Ur Leukocyte Esterase Negative Urine RBC 0-5 SEEN Urine WBC 0-5 SEEN Ur Squamous Epith Cells 0-5 SEEN Urine Bacteria 0 SEEN Urine Mucus 0 SEEN Radiography Diagnostic Testing: Clinical Impression(s) from Imaging Studies Abdomen/Pelvis CT 05/27/25 16:24 IMPRESSION: 1. Normal appendix. 2. Fatty liver. Hypodense lesions of the left and right hepatic lobe, likely cyst or hemangioma, unchanged. 3. Fecal retention in the colon consistent with constipation. 4. No obstructive uropathy. 5. Multiple uterine fibroids. Reading Location: [facility] CT scan of the abdomen pelvis was obtained. There are hypodense lesions of the left and right hepatic lobe likely a cyst or hemangioma. These are unchanged from previous results. There is stool in the colon consistent with constipation. There is no obstructive uropathy noted. There are uterine fibroids noted. This was interpreted by the radiologist. I also independently reviewed the images and did not see any evidence of bowel obstruction or perforation. Treatment and Re-Evaluation :: Patient given IV fluids, morphine, and Zofran. Patient was feeling better on reevaluation. Patient was advised of her findings. Patient was given a prescription for Zofran and a short course of [place]. Patient was instructed to drink plenty of fluids. Patient was instructed use [id number] laxatives as needed for constipation. Patient was instructed to follow-up with her primary care physician in 5 to 7 days. Patient understood and was agreeable with the plan. All questions were answered. Discharge Plan Triage Chief Complaint: Abd Pain ED Provider: Surya Mancilla Dx/Rx/DC Orders Clinical Impression: Abdominal pain, Gastritis Instructions: ED Abdominal Pain Unkn Cause Fem, ED Constipation (Adult) Prescriptions: New hydrocodone-acetaminophen 5-325 mg tablet 1 tab PO Q6H PRN PRN (Reason: Pain) 3 Days Qty: 10 0RF ondansetron 4 mg tablet,disintegrating 4 mg PO Q8H PRN PRN (Reason: Nausea) Qty: 10 0RF No Action albuterol sulfate 90 mcg/actuation HFA aerosol inhaler 2 puff INHALATION Q4H PRN PRN (Reason: shortness of breath or wheezing) lorazepam 0.5 mg tablet 0.25 - 0.5 mg PO BID PRN PRN (Reason: anxiety) Primary Care Provider: Eileen Alexis Referrals: Eileen Alexis MD [Primary Care Provider, Internal Medicine] - 5-7 Days Activity Restrictions/Additional Instructions: Your CAT scan did not show any acute process such as bowel obstruction or perforated bowel. There is some stool throughout the colon from constipation. You may take [id number] laxatives as needed. Follow-up with your primary care physician in 5 to 7 days. Print Language: Swedish Disposition Disposition: Home, Self Care
[2025-05-27 16:35] LABS: Hematocrit 44.2 % (37-47); Hemoglobin 15.1 g/dL (12.0-15.0); Immature Granulocytes Count 0.140 X10^3/uL (0.0-0.0); Mean Corp Hgb Conc 34.2 g/dL (32-36); Mean Corpuscular Volume 89.7 fL (81-99); Mean Platelet Vol. 10.5 fl (6.2-12.0); NRBC Flagged by Analyzer 0 % (0-5); Platelet Count 383 K/mm3 (150-450); RBC Distribution Width CV 11.8 % (11.6-14.6); RBC Distribution Width SD 38.4 fl (35.1-43.9); Red Blood Count 4.93 M/mm3 (4.2-5.4); White Blood Count 15.2 K/mm3 (4.4-11.0)
[2025-05-27] MEDS: 0.9% Normal Saline (1000mL) 1,000 ML 999 ML IV (16:37)
--- OUTSIDE RECORDS SUMMARY | 2025-05-27 16:48 | XMS RPT_ITS | CCD ---
Author Organization [facility] Care Team Providers Care Cartoon Designer Name Role Phone Aurelio Alexis Unavailable Lolis Guerrero Unavailable Unavailable Aurelio Alexis MD Primary Care Provider Aurelio Alexis MD Primary Care Provider Dede Bosch Unavailable Unavailable Dede Bosch Attending Unavailable Talampas, Aurelio Primary Care Unavailable Lolis Guerrero Attending Unavailable Talampnatalya, Aurelio Primary Care Unavailable Talampas, Aurelio Primary Care Unavailable Lolis Guerrero Attending Unavailable Aurelio Alexis MD Primary Care Provider Aurelio Alexis MD Primary Care Provider Harshad Aurelio Daniela Primary Care Unavailable Burke Hurtado Consulting Unavailable Burke Hurtado Attending Unavailable WanBurke childress Admitting Unavailable WanekBurke Admitting Unavailable Talampas, Aurelio D Primary Care Unavailable Burke Hurtado Attending Unavailable Talampas, Aurelio D Primary Care Unavailable Talampas, Aurelio D Referring Unavailable WanekBurke Attending Unavailable Talampnatalya, Aurelio D Primary Care Unavailable Juno Franco Attending Unavailabl e Burke Hurtado Referring Unavailable Oconnell DRAFTER MECHANICAL.FRONT DESK COORDINATOR, Kelsie Unavailable Consuelo DRAFTER MECHANICAL.WIRE DRAWING DIE MAKER, Charleen Unavailable Oconnell DRAFTER MECHANICAL.FRONT DESK COORDINATOR, Kelsie Unavailable HARSHAD AURELIO Daniela Attending Unavailable JENNAMPNATALYA, AURELIO D Primary Care Unavailable Allergies Allergy Classification Reported Allergen(s) Allergy Type Date of Onset Reaction(s) Facility (20 sources) Seasonal allergy; Translations: [SEASONAL ALLERGIES] Allergy to substance 1 Other: See Comments [facility] Work Phone: Medications Current Medications Medication Drug Class(es) Dates Sig (Normalized) Sig (Original) [id number] 200 actuat albuterol 0.09 mg/actuat metered dose inhaler (7 sources) beta2-Adrenergic Agonist Start: 10-06-2023 take 2 puff(s) by inhalation every four hours as needed for wheezing albuterol HFA (PROVENTIL HFA, VENTOLIN HFA) 90 mcg/actuation inhaler Inhale 2 Puffs as instructed every 4 hours as needed for wheezing/shortnes s of breath. 1 Each 1 10/06/2023 Active Start: 04-18-2022 End: 04-27-2022 take 2 puff(s) by inhalation every four hours as needed for wheezing albuterol 90 mcg/inh inhalation aerosol ; 2 puff(s) inhaled every 4 hours, As Needed for wheezing or shortness of breath Quantity: 1 Refills: 0 Ordered: 18-Apr-2022 Dede Bosch Start: 18-Apr-2022 End: 27-Apr-2022 Generic Substitution Allowed Comments: For inhalation only.It is very important that you take or use this exactly as directed. Do not skip doses or discontinue unless directed by your doctor.Obtain medical advice before taking any non-prescription drugs as some may affect the action of this medication.Shake well before use. Comment on above: For inhalation only. It is very important that you take or use this exactly as directed. Do not skip doses or discontinue unless directed by your doctor.Obtain medical advice before taking any non-prescription drugs as some may affect the action of this medication.Shake well before use. Inhale 2 Puffs as in structed every 4 hours as needed for wheezing/shortness of breath. azithromycin 250 mg oral tablet (1 source) Macrolide Antimicrobial Start: End: Zithromax Z-Curly 250 mg oral tablet ; 2 tab(s) by mouth at once on day 1, then 1 tablet once a day on days 2-5 Quantity: 6 Refills: 0 Ordered: 18-Apr-2022 Dede Bosch Start: 18-Apr-2022 End: 22-Apr-2022 Generic Substitution Allowed Comments: Do not take dairy products, antacids, or iron preparations within one hour of this medication.Finish all this medication unless otherwise directed by prescriber. Comment on above: Do not take dairy pr oducts, antacids, or iron preparations within one hour of this medication.Finish all this medication unless otherwise directed by prescriber. Calcium Carbonate / Magnesium Chloride (3 sources) Magnesium Chlori de With Calcium Quantity: 0 Refills: 0 Ordered: 05-Aug-2019 Gabbie Mcmahon Generic Substitution Allowed ciprofloxacin 500 mg oral tablet (4 sources) Quinolone Antimicrobial Start: End: take 1 tablet by mouth twice daily ciprofloxacin HCl (CIPRO) 500 mg tablet Take 1 tablet by mouth twice daily for 3 days. 6 tablet 0 11/07/2021 11/10/2021 Active Start: 10-29-2019 End: 10-31-2019 take 1 tablet by mouth twice daily Cipro 500 mg oral tablet ; 1 tab(s) orally 2 times a day Quantity: 6 Refills: 0 Ordered: 29-Oct-2019 Graeme Santiago Start: 29-Oct-2019 End: 31-Oct-2019 Status: Other Generic Substitution Allowed Comments: Avoid prolonged or excessive exposure to direct and/or artificial sunlight while taking this medication.Check with your doctor before becoming .Do not take dairy products, antacids, or iron preparations within one hour of this medication.Finish all this medication unless otherwise directed by prescriber.Medication should be taken with plenty of water. Comment on above: Avoid prolonged or e xcessive exposure to direct and/or artificial sunlight while taking this medication.Check with your doctor before becoming .Do not take dairy products, antacids, or iron preparations within one hour of this medication.Finish all this medication unless otherwise directed by prescriber.Medication should be taken with plenty of water. Take 1 tablet by jf th twice daily for 3 days. fluconazole 150 mg oral tablet (2 sources) Azole Antifungal Start: 10-18-19 Diflucan 150 mg oral tablet ; 1 tab(s) orally once today and then repeat in 3 days Quantity: 2 Refills: 0 Ordered: 17-Oct-2021 Lolis Guerrero Start: 17-Oct-2021 Status: Other Generic Substitution Allowed Comments: Do not take this drug if you are .Finish all this medication unless otherwise directed by prescriber. Comment on above: Do not take this myron g if you are .Finish all this medication unless otherwise directed by prescriber. hydrocortisone acetate 25 mg rectal suppository (3 sources) Corticosteroid Start: 09-14-19 End: 09-21-19 hydrocortisone (ANUSOL-HC) 25 mg suppository Indications: Hemorrhoids, unspecified hemorrhoid type 1 Suppository by RECTAL route two times a day as needed for up to 7 days. 14 Suppository 1 09/13/2024 09/20/2024 Active Start: 09-29-2023 End: 10-06-2023 hydrocortisone (ANUSOL-HC) 2 5 mg suppository Indications: Hemorrhoids, unspecified hemorrhoid type 1 Suppository by RECTAL route two times a day as needed for up to 7 days. 14 Suppository 1 09/29/2023 10/06/2023 Active Comment on above: 1 Suppository by REC JENN route two times a day as needed for up to 7 days. Inhalational Spacing Device (1 source) Start: 10-06-2023 End: 10-06-2023 Inhalational Spacing Device 1 Device one time only for 1 dose. 1 Each 0 10/06/2023 10/06/2023 Active Comment on above: 1 Device one time on ly for 1 dose. Loratadine (19 sources) loratadine (CLAR ITIN ORAL) Take by mouth. prn Active loratadine (CLAR ITIN ORAL) Take by mouth. prn 0 Active Comment on above: Take by mouth. prn Magnesium (19 sources) take 1 tablet by jf th once daily Magnesium 250 mg tab Take 250 mg by mouth once daily. Active take 1 tablet by mouth once arelis y Magnesium 250 mg tab Take 250 mg by mouth once daily. 0 Active Comment on above: Take 250 mg by mouth once daily. VIT #108-IRON-FA ORAL (19 sources) VIT #10 8-IRON-FA ORAL Indications: Threatened (HCC) Take by mouth. Active VIT #10 8-IRON-FA ORAL Indications: Threatened Take by mouth. 0 Active Comment on above: Take by mouth. Completed/Discontinued Medications Medication Drug Class(es) Dates Sig (Normalized) Sig (Original) amoxicillin 875 mg / clavulanate 125 mg oral tablet (12 sources) Penicillin-class Antibacterial Start: 09-20-2021 End: 09-29-2021 take 1 tablet by mouth twice daily at mealtime amoxicillin-clavu lanic acid (AUGMENTIN) 875-125 mg per tablet TAKE 1 TABLET BY MOUTH TWICE DAILY WITH FOOD FOR 10 DAYS 0 09/20/2021 Active Comment on above: Finish all this medi cation unless otherwise directed by prescriber.Take with food or milk. TAKE 1 TABLET BY JF TWICE DAILY WITH FOOD FOR 10 DAYS betamethasone 0.5 mg/ml / clotrimazole 10 mg/ml topical cream (6 sources) Azole Antifungal, Corticosteroid Start: 11-05-2021 clotrimazole-beta methasone (LOTRISONE) cream Apply 1 application to affected area twice daily. 15 g 1 11/05/2021 Active Comment on above: Apply 1 application to affected area twice daily. escitalopram 5 mg oral tablet (14 sources) Serotonin Reuptake Inhibitor Start: 02-04-2022 take 1 tablet by mouth once daily escitalopram oxalate (LEXAPRO) 5 mg tablet Indications: Panic attack , Adjustment disorder with mixed anxiety and depressed mood Take 1 tablet by mouth once daily. 90 tablet 0 02/04/2022 Active Start: 08-23-2021 End: 02-02-2022 take 1 tablet by mouth once daily escitalopram oxalate (LEXAPRO) 5 mg tablet Indications: Panic attack , Adjustment disorder with mixed anxiety and depressed mood Take 1 tablet by mouth once daily. 90 tablet 0 11/26/2021 02/02/2022 Discontinued take 2 tablets by [facility] once daily Lexapro 5 mg oral tablet ; 2 tab(s) orally once a day Quantity: 0 Refills: 0 Ordered: 20-Sep-2021 Shiraz Brown Generic Substitution Allowed Comment on above: [facility] Garlic preparation (6 sources) Non-Standardized Food Allergenic Extract GARLIC ketorolac tromethamine 10 mg oral tablet (3 sources) Nonsteroidal Anti-inflammatory Drug, Cyclooxygenase Inhibitor Start: 10-29-19 End: 11-02-19 take 5 tablets by mouth once daily as needed ketorolac 10 mg oral tablet ; 1 tab(s) orally 4 times a day, As Needed for pain; do not take for more than 5 consecutive days Quantity: 20 Refills: 0 Ordered: 29-Oct-2019 Graeme Santiago Start: 29-Oct-2019 End: 02-Nov-2019 Status: Other Generic Substitution Allowed Comments: It is very important that you take or use this exactly as directed. Do not skip doses or discontinue unless directed by your doctor.May cause drowsiness or dizziness.Obtain medical advice before taking any non-prescription drugs as some may affect the action of this medication.Take with food or milk. Comment on above: It is very important that you take or use this exactly as directed. Do not skip doses or discontinue unless directed by your doctor.May cause drowsiness or dizziness.Obtain medical advice before taking any non-prescription drugs as some may affect the action of this medication.Take with food or milk. L.acid/L.casei/B.bif /B.melchor/FOS (PROBIOTIC BLEND ORAL) (10 sources) End: 09-29-19 24 L.acid/L.casei/B.bif /B.melchor/FOS (PROBIOTIC BLEND ORAL) Take by mouth as needed. 0 09/29/2023 Discontinued L.acid/L.casei/B .bif/B.melchor/FOS (PROBIOTIC BLEND ORAL) Take by mouth as needed. 0 Active L.acid/L.casei/B .bif/B.melchor/FOS (PROBIOTIC BLEND ORAL) Take by mouth. 0 Active Comment on above: Take by mouth. Take by mouth as nee ded. LORazepam 0.5 mg oral tablet (14 sources) Benzodiazepine Start: End: take 0.25-0.5 mg by mouth every twelve hours as needed for anxiety and anxiety LORazepam (ATIVAN) 0.5 mg Indications: Anxiety Take 0.5-1 tablets by mouth two times a day as needed for up to 7 days. 14 tablet 12/21/2024 12/28/2024 Start: 12-19-2023 End: 12-26-2023 take 0.25-0.5 mg by mouth every twelve hours as needed for anxiety and anxiety LORazepam (ATIVAN) 0.5 mg Indications: Anxiety Take 0.5-1 tablets by mouth two times a day as needed for up to 7 days. 14 tablet 0 12/19/2023 12/26/2023 Start: 11-04-2022 End: 11-11-2022 take 0.5-1 tablets by mouth once daily as needed LORazepam (ATIVAN) 0.5 mg Indications: Anxiety Take 0.5-1 tablets by mouth once daily as needed for up to 7 days. 7 tablet 0 11/04/2022 11/11/2022 Start: 08-23-2021 End: 02-19-2022 take 1 tablet by mouth once daily as needed LORazepam (ATIVAN) 0.5 mg Indications: Panic attack Take 1 tablet by mouth once daily as needed for up to 180 days. 20 tablet 1 08/23/2021 02/02/2022 Discontinued LORazepam (ATIVA N) 0.5 mg Take 0.25 mg by mouth as needed. 0 Active Comment on above: Take 1 tablet by jf th once daily as needed for up to 180 days. Take 0.25 mg by mout h as needed. Take 0.5-1 tablets b y mouth once daily as needed for up to 7 days. nitrofurantoin, macrocrystals 25 mg / nitrofurantoin, monohydrate 75 mg oral capsule (2 sources) Nitrofuran Antibacterial Start: 10-18-19 End: 10-22-19 take 1 capsule by mouth twice daily at mealtime Macrobid 100 mg oral capsule ; 1 cap(s) orally 2 times a day x 5 days. Take with food. Quantity: 10 Refills: 0 Ordered: 17-Oct-2021 Lolis Guerrero Start: 17-Oct-2021 End: 21-Oct-2021 Status: Other Generic Substitution Allowed Comments: Finish all this medication unless otherwise directed by prescriber.May discolor urine or feces.Take with food or milk. Comment on above: Finish all this medi cation unless otherwise directed by prescriber.May discolor urine or feces.Take with food or milk. psyllium husk (METAMUCIL ORAL) (9 sources) psyllium husk (METAMUCIL ORAL) Take by mouth. 0 Active Comment on above: Take by mouth. tamsulosin hydrochloride 0.4 mg oral capsule (3 sources) alpha-Adrenergic Susan Start: 10-29-19 End: 11-01-19 take 1 capsule by mouth once daily at bedtime Flomax 0.4 mg oral capsule ; 1 cap(s) orally once a day (at bedtime) Quantity: 4 Refills: 0 Ordered: 29-Oct-2019 Graeme Santiago Start: 29-Oct-2019 End: 01-Nov-2019 Status: Other Generic Substitution Allowed Comments: It is very important that you take or use this exactly as directed. Do not skip doses or discontinue unless directed by your doctor.May cause drowsiness. Alcohol may intensify this effect. Use care when operating dangerous machinery.Some non-prescription drugs may aggravate your condition. Read all labels carefully. If a warning appears, check with your doctor before taking.Swallow whole. Do not crush.Take with food or milk. Comment on above: It is very important that you take or use this exactly as directed. Do not skip doses or discontinue unless directed by your doctor.May cause drowsiness. Alcohol may intensify this effect. Use care when operating dangerous machinery.Some non-prescription drugs may aggravate your condition. Read all labels carefully. If a warning appears, check with your doctor before taking.Swallow whole. Do not crush.Take with food or milk. Problems Active Problems Problem Classification Problem Date Documented Date Episodic/Chronic Abdominal pain (1 source) Unspecified abdominal pain; Translations: [Unspecified abdominal pain] Onset: 08-06-2024 Episodic Acute bronchitis (3 sources) Acute bronchitis; Translations: [Acute bronchitis] Onset: 04-18-2022 04-18-2022 Episodic Adjustment disorders (20 sources) Adjustment disorder with anxious mood; Translations: [Adjustment disorder with anxiety] Onset: 11-20-2010 11-20-2010 Chronic Anxiety disorders (20 sources) Panic disorder with agoraphobia; Translations: [Agoraphobia with panic disorder] Onset: 11-20-2010 11-20-2010 Chronic Biliary tract disease (1 source) Calculus of gallbladder without cholecystitis without obstruction; Translations: [Calculus of gallbladder without cholecystitis without obstruction] Onset: 08-06-2024 Episodic Cardiac dysrhythmias (1 source) Palpitations; Translations: [Palpitations] 10-06-2023 Episodic Genitourinary congenital anomalies (19 sources) Bicornuate uterus; Translations: [Bicornate uterus] Onset: 03-05-2012 03-05-2012 Chronic Hemorrhoids (6 sources) Hemorrhoids without complication; Translations: [Residual hemorrhoidal skin tags] Episodic Nonmalignant breast conditions (1 source) Breast finding ; Translations: [Dense breasts] 12-19-2023 Episodic Nonspecific chest pain (2 sources) Atypical chest pain; Translations: [Other chest pain] 09-29-2023 Episodic Other and unspecified benign neoplasm (1 source) Tubular adenoma ; Translations: [Benign neoplasm, unspecified site] Episodic Other circulatory disease (1 source) Other specified symptoms and signs involving the circulatory and respiratory systems; Translations: [Oth symptoms and signs involving the circ and resp systems] Onset: 04-18-2022 Episodic Other female genital disorders (1 source) Vaginal irritation; Translations: [Other specified noninflammatory disorders of vagina] Episodic Other lower respiratory disease (1 source) H/O: asthma; Translations: [Personal history of other diseases of the respiratory system] 10-06-2023 Episodic Other screening for suspected conditions (not mental disorders or infectious disease) (6 sources) Patient encounter status; Translations: [Encounter for screening mammogram for malignant neoplasm of breast] Episodic Other upper respiratory disease (2 sources) Congestion of nasal sinus; Translations: [Other disease of nasal cavity and sinuses] 09-20-2021 Episodic Other upper respiratory infections (8 sources) Acute pharyngitis; Translations: [Acute pharyngitis] Onset: 09-20-2021 09-20-2021 Episodic Ovarian cyst (2 sources) Cyst of right ovary; Translations: [Unspecified ovarian cyst, right side] Onset: 12-21-2024 12-21-2024 Episodic Residual codes; unclassified (1 source) Acquired absence of other specified parts of digestive tract; Translations: [S/P laparoscopic cholecystectomy] Onset: 12-21-2024 Episodic Screening and history of mental health and substance abuse codes (1 source) Encounter for screening for depression; Translations: [Screening for depression] Onset: 12-21-2024 Episodic Unclassified (2 sources) SINUS PAIN 09-20-2021 Comment on above: SINUS PAIN Unclassified (1 source) Yeast infection 10-17-2021 Unclassified (2 sources) COUGH RUNNY NOSE 04-18-2022 Comment on above: COUGH RUNNY NOSE Unclassified (1 source) Personal history of COVID-19; Translations: [Personal history of COVID-19] Onset: 04-18-2022 Urinary tract infections (2 sources) Urinary tract infectious disease 10-17-2021 Episodic Comment on above: UTI Past or Other Problems Problem Classification Problem Date Documented Da te Episodic/Chronic Benign neoplasm of uterus (19 sources) Uterine leiomyoma; Translations: [Leiomyoma of uterus, unspecified] Onset: 01-29-2012 01-29-2012 Episodic Calculus of urinary tract (1 source) Personal history of urinary calculi; Translations: [Personal history of urinary calculi] Onset: 10-17-2021 Episodic Genitourinary symptoms and ill-defined conditions (8 sources) Dysuria; Translations: [Dysuria] Onset: 10-17-2021 10-17-2021 Episodic Hemorrhage during ; abruptio placenta; placenta previa (5 sources) Threatened miscarriage; Translations: [Threatened ] Onset: 01-20-2014 Resolved: 01-25-2014 06-11-2021 Episodic Mycoses (2 sources) Mycosis; Translations: [Candidiasis of unspecified site] Onset: 10-17-2021 10-17-2021 Episodic Other ear and sense organ disorders (1 source) Otalgia, right ear; Translations: [Otalgia, right ear] Onset: 09-20-2021 Episodic Other female genital disorders (19 sources) Polyp of cervix; Translations: [Polyp of cervix uteri] Onset: 07-27-2015 07-27-2015 Episodic Other gastrointestinal disorders (1 source) Diarrhea, unspecified; Translations: [Diarrhea, unspecified] Onset: 09-20-2021 Episodic Other upper respiratory disease (2 sources) Nasal congestion; Translations: [Nasal congestion] Onset: 09-20-2021 Episodic Unclassified (1 source) Patient encounter status 11-23-2024 Results Test Name Value Interpretation Reference Range Facility OVon 12-21-2024 CNOV Office Visit ([facility] ) KATE MCKEON ([id number]) 1980 F Date Time Provider Department 12/21/24 1:20 PM AURELIO ALEXIS [facility] During your visit today, we recorded the following information about you: Pulse Respiration Blood pressure Weight 79/minute 16/minute 121/83 76.4 kg Height 1.705 m Aurelio Alexis MD 01/13/2025 11:40 PM Signed This note was created using [employer]. Subjective Kate Mckeon is a 44 year old female. HISTORY Kate Mckeon is a 44 year old lady here for yearly exam and follow up appointment. Kate Mckeon is a 44-year-old female presenting for an annual wellness visit. Kate reports overall well-being and is not currently taking a significant number of medications. She has an albuterol inhaler prescribed in September of last year, which she uses as needed. She also takes [id number] Claritin, magnesium, and a vitamin. She requests a refill of lorazepam, noting that a previous prescription of 14 pills lasted her an entire year. She denies any changes in family medical history, and reports that her siblings and father do not have any known medical issues. She denies tobacco, alcohol, or drug use. She denies feelings of depression or hopelessness, and reports only normal stress levels. Kate underwent a laparoscopic cholecystectomy in June following an acute episode of emesis and abdominal pain. During imaging for this procedure, a nodule was noted on the right ovary, and she inquires about the need for follow-up. She has made dietary changes post-surgery and denies any current issues related to the cholecystectomy. 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 She expresses a goal to lose 15-20 lbs and plans to increase her physical activity once her classes are completed in 7 weeks. She previously maintained a lower weight through regular walking and increased activity in her previous job. 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 loratadine (CLARITIN ORAL) Take by mouth. prn Magnesium 250 mg tab Take 250 mg by mouth once daily. VIT #108-IRON-FA ORAL Take by mouth. LORazepam (ATIVAN) 0.5 mg Take 0.5-1 tablets by mouth two times a day as needed for up to 7 days. No current facility-administered medications for this visit. ALLERGIES Allergen Reactions Seasonal Allergies Other: See Comments FAMILY HISTORY Problem Relation Age of Onset Arthritis Mother in thumb Hypertension Mother Headache Mother No Known Problems Father No Known Problems Sister No Known Problems Brother No Known Problems Brother Coronary Artery Disease Maternal Grandmother Colon Cancer Paternal Grandmother Ovarian cancer Paternal Grandmother Heart Paternal Grandfather chf Social History Tobacco Use Smoking status: Never Smokeless tobacco: Never Vaping Use Vaping status: Never Used Substance Use Topics Alcohol use: Yes Alcohol/week: 16.1 standard drinks of alcohol Types: 7 Cans of Beer (12oz), 7 Mixed Drinks per week Comment: states approx 8 drinks per week Drug use: No Review of Systems Objective BP 121/83 Pulse 79 Resp 16 Ht 170.5 cm (5' 7.13) Wt 76.4 kg (168 lb 6.9 oz) LMP 12/19/2023 (Exact Date) BMI 26.28 kg/m? Last 5 Encounter Wt Readings: Date: Wt: 12/21/2024 76.4 kg (168 lb 6.9 oz) 12/19/2023 74.5 kg (164 lb 4.8 oz) 10/06/2023 73.5 kg (162 lb) 09/29/2023 72.6 kg (160 lb) 11/04/2022 73.5 kg (162 lb) No waist measurement recorded Estimated body mass index is 26.28 kg/m? as calculated from the following: Height as of this encounter: 170.5 cm (5' 7.13). Weight as of this encounter: 76.4 kg (168 lb 6.9 oz). Last 5 Encounter BP Readings: Date: BP: 12/21/2024 121/83 12/19/2023 122/72 10/06/2023 132/70 09/29/2023 122/84 11/04/2022 122/82 Physical Exam Vitals reviewed. Constitutional: Appearance: Normal appearance. She is well-developed. HENT: Head: Normocephalic and atraumatic. Right Ear: Tympanic membrane, ear canal and external ear normal. Left Ear: Tympanic membrane, ear canal and external ear normal. Nose: Nose normal. Mouth/Throat: Mouth: Mucous membranes are moist. Eyes: Conjunctiva/sclera: Conjunctivae normal. Pupils: Pupils are equal, round, and reactive to light. Neck: Thyroid: No thyromegaly. Vascular: No carotid bruit. Cardiovascular: Rate and Rhythm: Normal rate and regular rhyt (more content not included)... Normal [facility] Surgery Visit Reporton 07-29 Surgery Visit Report [facility] [address] [facility] [address] [place] [address] OFFICE VISIT Date of Service: 07/29/24 MR#: [id number] Acct: [id number] Name: KATE MCKEON Rep #: [id number] : 1980 Provider: Dr. Burke childress MD Age/Sex: 44/F Location: [facility] Status: Signed Intake Vital Signs 07/15/24 10:42 Height 5 ft 7 in Intake Visit Reasons: 2 weeks post op Chief Complaint: post op 2 wk Is patient in pain?: No Allergies No Known Allergies Allergy (Verified 07/29/24 15:10) Medications ???Medication ???Instructions ???Recorded ???Confirmed ???Type albuterol sulfate 90 mcg/actuation 2 puff inhalation Q4H PRN PRN 07/29/24 History aerosol inhaler shortness of breath or wheezing loratadine 10 mg tablet 10 mg PO DAILY 07/15/24 07/29/24 H istory (Allerclear) lorazepam 0.5 mg tablet 0.25 - 0.5 mg PO BID PRN PRN 07/1507/29/24 History anxiety Subjective Details: The patient is a 44-year-old female who is status post a recent laparoscopic cholecystectomy for acute cholecystitis/cholelit hiasis. She returns today for 2-week postop follow-up appointment. She states that she is doing extremely well. All of her GI symptoms and problems have resolved since her surgery. She has not not noticed any significant diarrhea or soft stools after her surgeries. She does admit that she has been very slow to reintroduce fatty foods at this point. She denies any incision issues or complaints. Objective Details: She is alert and oriented x 3. She is in no acute distress. Incisions are healing well. No signs of erythema or infection. She does have skin glue still tightly adherent to her incisions. Coding Level of Care Code Global Post Op Diagnoses S/P cholecystectomy Z90.49 [facility] Medical History Acute cholecystitis due to biliary calculus Symptomatic cholelithiasis Depression Anxiety Asthma Colon polyps Surgical History S/P cholecystectomy Social History Smoking Status: Never smoker Assessment and Plan (No Qualifiers) Assessment and Plan (1) S/P cholecystectomy: Status: Acute Plan: The patient is a 44-year-old female status post a successful laparoscopic cholecystectomy for acute cholecystitis/cholelit hiasis. She is doing well postoperatively. We reviewed pathology with her. I stated that it is okay to begin to reintroduce fatty foods in her diet. She asked about using the hot tub, and I am okay with her proceeding at this point. I feel that overall she is progressing as expected. No need for follow-up. She may certainly call if any questions or concerns arise. She was appreciative of today's visit 07/29/24 9512 Date Burke Hurtado MD Cosigner Signature: Date (if applicable) CC: Dr. Aurelio Alexis MD [facility] CBC W/Diff, Automatedon 06-18 Absolute Lymph 1.31 X10 3/uL Normal 0.83-4.51 [facility] Comment on above: Performed By: #### L 100.0100 #### [facility] [address] [place], [address] Absolute Neut 13.2 X10 3/uL High 2.0-7.7 [facility] Comment on above: Performed By: #### L 100.0100 #### [facility] [address] [place], [address] Basophils/100 WBC (Bld) 0.2 % Normal 0-1 [facility] Comment on above: Performed By: #### L 100.0100 #### [facility] [address] [place], [address] Eosinophils/100 WBC (Bld) 0.0 % Normal 0-5 [facility] Comment on above: Performed By: #### L 100.0100 #### [facility] [address] [place], [address] Erythrocyte distribution width (RBC) [Ratio] 11.6 % Normal 11.6-14.6 [facility] Comment on above: Performed By: #### L 100.0100 #### [facility] [address] [place], [address] Hematocrit (Bld) [Volume fraction] 36.8 % Low 37-47 [facility] Comment on above: Performed By: #### L 100.0100 #### [facility] [address] [place], [address] Hemoglobin (Bld) [Mass/Vol] 12.4 g/dL Normal 12.0-15.0 [facility] Comment on above: Performed By: #### L 100.0100 #### [facility] [address] [place], [address] IG% 0.500 Normal 0.0-0.9 [facility] Comment on above: Result Comment: IG% - Immature Granulocytes (promyelocytes, myelocytes and metamyelocytes) > 1% indicates that a LEFT SHIFT is Present. Performed By: #### L 100.0100 #### [facility] [address] [place], [address] Lymphocytes/100 WBC (Bld) 8.5 % Low 19-41 [facility] Comment on above: Performed By: #### L 100.0100 #### [facility] [address] [place], [address] MCH (RBC) [Entitic mass] 30.4 pg Normal 27.0-32.0 [facility] Comment on above: Performed By: #### L 100.0100 #### [facility] [address] [place], [address] MCHC (RBC) [Mass/Vol] 33.7 g/dL Normal 32-36 [facility] Comment on above: Performed By: #### L 100.0100 #### [facility] [address] [place], [address] MCV (RBC) [Entitic vol] 90.2 fL Normal 81-99 [facility] Comment on above: Performed By: #### L 100.0100 #### [facility] [address] [place], [address] Monocytes/100 WBC (Bld) 5.4 % Normal 0-10 [facility] Comment on above: Performed By: #### L 100.0100 #### [facility] [address] [place], [address] Neutrophils/100 WBC (Bld) 85.4 % High 47-70 [facility] Comment on above: Performed By: #### L 100.0100 #### [facility] [address] [place], [address] Nucleated RBC (Bld) [#/Vol] 0 10*3/uL Normal 0-5 [facility] Comment on above: Performed By: #### L 100.0100 #### [facility] [address] [place], [address] Platelet mean volume (Bld) [Entitic vol] 11.6 fL Normal 6.2-12.0 [facility] Comment on above: Performed By: #### L 100.0100 #### [facility] [address] [place], [address] Platelets (Bld) [#/Vol] 283 10*3/uL Normal 150-450 [facility] Comment on above: Performed By: #### L 100.0100 #### [facility] [address] [place], [address] RBC (Bld) [#/Vol] 4.08 10*6/uL Low 4.2-5.4 [facility] Comment on above: Performed By: #### L 100.0100 #### [facility] [address] [place], [address] RDW SD 38.4 fl Normal 35.1-43.9 [facility] Comment on above: Performed By: #### L 100.0100 #### [facility] [address] [place], [address] WBC (Bld) [#/Vol] 15.5 10*3/uL High 4.4-11.0 [facility] Comment on above: Performed By: #### L 100.0100 #### [facility] [address] [place], [address] Comprehensive Metabolic Prof ilon 07-16-2024 Albumin [Mass/Vol] 3.2 g/dL Normal 3.2-5.0 [facility] Comment on above: Performed By: #### L 500.4050 #### [facility] [address] [place], [address] Albumin/Globulin [Mass ratio] 1.1 {ratio} Normal 0.9-2.4 [facility] Comment on above: Performed By: #### L 500.4050 #### [facility] [address] [place], [address] ALK P 46 U/L Normal 45-117 [facility] Comment on above: Performed By: #### L 500.4050 #### [facility] [address] [place], [address] ALT [Catalytic activity/Vol] 71 U/L High 13-56 [facility] Comment on above: Performed By: #### L 500.4050 #### [facility] [address] [place], [address] AST [Catalytic activity/Vol] 48 U/L High 15-37 [facility] Comment on above: Performed By: #### L 500.4050 #### [facility] [address] [place], [address] Bilirubin [Mass/Vol] 0.60 mg/dL Normal 0.20-1.00 [facility] Comment on above: Result Comment: For patients on eltrombopag therapy, use of Dimension [place] TBIL is not recommended. Performed By: #### L 500.4050 #### [facility] [address] [place], [address] BUN/CRE 13.5 RATIO Normal 10-20 [facility] Comment on above: Performed By: #### L 500.4050 #### [facility] [address] [place], [address] CA,Total 8.0 mg/dL Low 8.5-10.1 [facility] Comment on above: Performed By: #### L 500.4050 #### [facility] [address] [place], [address] Chloride [Moles/Vol] 107 mmol/L Normal 98-107 [facility] Comment on above: Performed By: #### L 500.4050 #### [facility] [address] [place], [address] CO2 [Moles/Vol] 27.0 mmol/L Normal 21.0-32.0 [facility] Comment on above: Performed By: #### L 500.4050 #### [facility] [address] [place], [address] Creatinine [Mass/Vol] 0.67 mg/dL Normal 0.55-1.02 [facility] Comment on above: Result Comment: The validity of the calculated GFR GFRAA in patients over 70 years has not been determined. Clinical correlation is essential. Performed By: #### L 500.4050 #### [facility] [address] [place], [address] ECRCL 114.92 ml/min Normal [facility] Comment on above: Performed By: #### L 500.4050 #### [facility] [address] [place], [address] EST GFR - AA 124 mL/min Normal >60 [facility] Comment on above: Result Comment: Afri can [place] GFR Calc Performed By: #### L 500.4050 #### [facility] [address] [place], [address] GAP 4 Low 5-15 [facility] Comment on above: Performed By: #### L 500.4050 #### [facility] [address] [place], [address] GFR/1.73 sq M.predicted among non-blacks MDRD (S/P/Bld) [Vol rate/Area] 102 mL/min/{1.73_m2} Normal >60 [facility] Comment on above: Result Comment: Non- GFR Calc Performed By: #### L 500.4050 #### [facility] [address] [place], [address] Globulin (S) [Mass/Vol] 2.8 g/dL Normal 2.2-4.2 [facility] Comment on above: Performed By: #### L 500.4050 #### [facility] [address] [place], [address] Glucose [Mass/Vol] 108 mg/dL High 74-106 [facility] Comment on above: Result Comment: Fast ing Glucose result from 100 to 125 mg/dL suggests IMPAIRED HOMEOSTASIS per A.D.A. criteria. Performed By: #### L 500.4050 #### [facility] [address] [place], [address] Potassium [Moles/Vol] 3.5 mmol/L Normal 3.5-5.1 [facility] Comment on above: Performed By: #### L 500.4050 #### [facility] [address] [place], [address] Sodium [Moles/Vol] 138 mmol/L Normal 136-145 [facility] Comment on above: Performed By: #### L 500.4050 #### [facility] [address] [place], [address] T PROT 6.0 g/dL Low 6.4-8.2 [facility] Comment on above: Performed By: #### L 500.4050 #### [facility] [address] [place], [address] Urea nitrogen [Mass/Vol] 9 mg/dL Normal 7-18 [facility] Comment on above: Performed By: #### L 500.4050 #### [facility] [address] [place], [address] 12 Lead EKGon 07-15-2024 12 Lead EKG [facility] [address] [place] [address] 12 Lead EKG 07/15/24 1059 MR#: [id number] Acct: [id number] Name: KATE MCKEON Rep #: [id number] : 1980 44 From: Juno Franco MD Attending Dr: Dr. Burke Hurtado MD Status: AD M LB Ordering Dr: Terry Mehta MD Date: 07/15/24 Location: [facility] Sex: F C Admitted: 07/15/24 Test Reason : REPEAT Blood Pressure : */* mmHG Vent. Rate : 82 BPM Atrial Rate : 82 BPM P-R Int : 144 ms QRS Dur : 74 ms QT Int : 394 ms P-R-T Axes : 52 58 43 degrees QTcB Int : 460 ms Normal sinus rhythm Normal ECG No previous ECGs available Confirmed by NIA GARCIA, СЕРГЕЙ ([id number]), image editor KESHIA MCDANIEL ([id number]) on 07/15/2024 2:46:26 PM Referred By: DAJUAN Confirmed By: СЕРГЕЙ FRANCO MD 07/15/24 1446 Date Juno Franco MD CC: Dr. Terry Mehta MD; Dr. Aurelio Aleixs MD; Dr. Burke Hurtado MD Signed Normal [facility] Abdomen/Pelvis W IV Cont ONL Yon 07-15-2024 Abdomen/Pelvis W IV Cont ONLY [facility] Services [address] [place] [address] Abdomen/Pelvis W IV Cont ONLY MR#: [id number] Acct: [id number] Name: KATE MCKEON Rep #: [id number] : 1980 F 44 From: Surya Barkley MD PCP: Dr. Aurelio Alexis MD Status: [facility] ER Study: Abdomen/Pelvis W IV Cont ONLY Date of Exam: Exam# [id number] Ordering Dr: Marcos Casiano DO PROCEDURE: ABDOMEN/PELVIS W IV CONT ONLY REASON FOR EXAM: Bandlike abdominal pain radiating to middle of the back with nausea and vomiting. TECHNIQUE: Abdomen and pelvis CT with intravenous contrast. IV CONTRAST: Isovue 370, 91 mL. COMPARISON: No relevant prior FINDINGS: Lung bases: Clear Liver: A 1.4 cm enhancing hypodense nodule in the left hepatic lobe, axial image 31. A 0.9 cm hypodense nodule in the right hepatic lobe, axial image 51. Mild periportal edema. Gallbladder: Mildly distended. No evidence of gallstones. Spleen: Unremarkable. Pancreas: Unremarkable. Adrenals: Unremarkable. Kidneys: Unremarkable. Bladder: Unremarkable. Reproductive Organs: Anteverted uterus. Multiple uterine leiomyomas. Right ovary measures 4.2 times 2 point 9 cm. An irregular enhancing nodule in the right ovary measuring 2.5 x 2.4 cm, axial image 102. Left ovary measures 2.9 x 2.4 cm, axial image 101. Bowel: Scattered air-fluid levels in the small bowel. Fecal debris is seen throughout the colon. No abnormally distended loops of small bowel. Appendix: Normal. Lymph nodes: No suspicious lymph node enlargement. Vasculature: Major vascular structures are unremarkable. Peritoneum / Retroperitoneum: Small amount of fluid in the cul-de-sac. Bones: Unremarkable. CT/Abdomen/Pelvis W IV Cont ONLY IMPRESSION: Hypodense enhancing lesion in the left hepatic lobe is demonstrated. This most likely represents hemangioma. Small hypodense lesion in the right hepatic lobe, cyst or hemangioma. Mild periportal edema. This can be seen in hepatitis. Normally distended loops of small bowel with air-fluid levels may indicate developing gastroenteritis. Multiple uterine fibroids. Enhancing nodule in the right ovary. Consider elective ultrasound for further evaluation if indicated. Small amount of free fluid in the cul-de-sac. One or more dose reduction techniques were used (e.g., Automated exposure control, adjustment of the mA and/or kV according to patient size, use of iterative reconstruction technique). Reading Location: [facility] CC: Dr. Aurelio Alexis MD; Dr. Marcos Casiano DO Cook Room Supervisor: Signed Normal [facility] Basic Metabolic Profile (BMP )on 07-15-2024 BUN/CRE 13.1 RATIO Normal 10-20 [facility] Comment on above: Performed By: #### L 100.0100, L500.3400, L500.2500, L700.6800, L501.2450 #### [facility] [address] [place], [address] CA,Total 9.4 mg/dL Normal 8.5-10.1 [facility] Comment on above: Performed By: #### L 100.0100, L500.3400, L500.2500, L700.6800, L501.2450 #### [facility] [address] [place], [address] Chloride [Moles/Vol] 105 mmol/L Normal 98-107 [facility] Comment on above: Performed By: #### L 100.0100, L500.3400, L500.2500, L700.6800, L501.2450 #### [facility] [address] [place], [address] CO2 [Moles/Vol] 31.0 mmol/L Normal 21.0-32.0 [facility] Comment on above: Performed By: #### L 100.0100, L500.3400, L500.2500, L700.6800, L501.2450 #### [facility] [address] [place], [address] Creatinine [Mass/Vol] 0.76 mg/dL Normal 0.55-1.02 [facility] Comment on above: Result Comment: The validity of the calculated GFR GFRAA in patients over 70 years has not been determined. Clinical correlation is essential. Performed By: #### L 100.0100, L500.3400, L500.2500, L700.6800, L501.2450 #### [facility] [address] [place], [address] ECRCL 101.31 ml/min Normal [facility] Comment on above: Performed By: #### L 100.0100, L500.3400, L500.2500, L700.6800, L501.2450 #### [facility] [address] [place], [address] EST GFR - AA 106 mL/min Normal >60 [facility] Comment on above: Result Comment: Afri can [place] GFR Calc Performed By: #### L 100.0100, L500.3400, L500.2500, L700.6800, L501.2450 #### [facility] [address] [place], [address] GAP 6 Normal 5-15 [facility] Comment on above: Performed By: #### L 100.0100, L500.3400, L500.2500, L700.6800, L501.2450 #### [facility] [address] [place], [address] GFR/1.73 sq M.predicted among non-blacks MDRD (S/P/Bld) [Vol rate/Area] 88 mL/min/{1.73_m2} Normal >60 [facility] Comment on above: Result Comment: Non- GFR Calc Performed By: #### L 100.0100, L500.3400, L500.2500, L700.6800, L501.2450 #### [facility] [address] [place], [address] Glucose [Mass/Vol] 151 mg/dL High 74-106 [facility] Comment on above: Result Comment: Fast ing Glucose result greater than or equal to 126 mg/dL suggests DIABETES MELLITUS per A.D.A. criteria. Performed By: #### L 100.0100, L500.3400, L500.2500, L700.6800, L501.2450 #### [facility] [address] [place], [address] Potassium [Moles/Vol] 3.9 mmol/L Normal 3.5-5.1 [facility] Comment on above: Performed By: #### L 100.0100, L500.3400, L500.2500, L700.6800, L501.2450 #### [facility] [address] [place], [address] Sodium [Moles/Vol] 142 mmol/L Normal 136-145 [facility] Comment on above: Performed By: #### L 100.0100, L500.3400, L500.2500, L700.6800, L501.2450 #### [facility] [address] [place], [address] Urea nitrogen [Mass/Vol] 10 mg/dL Normal 7-18 [facility] Comment on above: Performed By: #### L 100.0100, L500.3400, L500.2500, L700.6800, L501.2450 #### [facility] [address] [place], [address] CBC W/Diff, Automatedon 01-3 0-2024 Absolute Lymph 1.15 X10 3/uL Normal 0.83-4.51 [facility] Comment on above: Performed By: #### L 100.0100, L500.3400, L500.2500, L700.6800, L501.2450 #### [facility] [address] [place], [address] Absolute Neut 14.7 X10 3/uL High 2.0-7.7 [facility] Comment on above: Performed By: #### L 100.0100, L500.3400, L500.2500, L700.6800, L501.2450 #### [facility] [address] [place], [address] Basophils/100 WBC (Bld) 0.4 % Normal 0-1 [facility] Comment on above: Performed By: #### L 100.0100, L500.3400, L500.2500, L700.6800, L501.2450 #### [facility] [address] [place], [address] Eosinophils/100 WBC (Bld) 0.2 % Normal 0-5 [facility] Comment on above: Performed By: #### L 100.0100, L500.3400, L500.2500, L700.6800, L501.2450 #### [facility] [address] [place], [address] Erythrocyte distribution width (RBC) [Ratio] 11.5 % Low 11.6-14.6 [facility] Comment on above: Performed By: #### L 100.0100, L500.3400, L500.2500, L700.6800, L501.2450 #### [facility] [address] [place], [address] Hematocrit (Bld) [Volume fraction] 39.9 % Normal 37-47 [facility] Comment on above: Performed By: #### L 100.0100, L500.3400, L500.2500, L700.6800, L501.2450 #### [facility] [address] [place], [address] Hemoglobin (Bld) [Mass/Vol] 13.9 g/dL Normal 12.0-15.0 [facility] Comment on above: Performed By: #### L 100.0100, L500.3400, L500.2500, L700.6800, L501.2450 #### [facility] [address] [place], [address] IG% 0.600 Normal 0.0-0.9 [facility] Comment on above: Result Comment: IG% - Immature Granulocytes (promyelocytes, myelocytes and metamyelocytes) > 1% indicates that a LEFT SHIFT is Present. Performed By: #### L 100.0100, L500.3400, L500.2500, L700.6800, L501.2450 #### [facility] [address] [place], [address] Lymphocytes/100 WBC (Bld) 7.1 % Low 19-41 [facility] Comment on above: Performed By: #### L 100.0100, L500.3400, L500.2500, L700.6800, L501.2450 #### [facility] [address] [place], [address] MCH (RBC) [Entitic mass] 31.0 pg Normal 27.0-32.0 [facility] Comment on above: Performed By: #### L 100.0100, L500.3400, L500.2500, L700.6800, L501.2450 #### [facility] [address] [place], [address] MCHC (RBC) [Mass/Vol] 34.8 g/dL Normal 32-36 [facility] Comment on above: Performed By: #### L 100.0100, L500.3400, L500.2500, L700.6800, L501.2450 #### [facility] [address] [place], [address] MCV (RBC) [Entitic vol] 89.1 fL Normal 81-99 [facility] Comment on above: Performed By: #### L 100.0100, L500.3400, L500.2500, L700.6800, L501.2450 #### [facility] [address] [place], [address] Monocytes/100 WBC (Bld) 1.8 % Normal 0-10 [facility] Comment on above: Performed By: #### L 100.0100, L500.3400, L500.2500, L700.6800, L501.2450 #### [facility] [address] [place], [address] Neutrophils/100 WBC (Bld) 89.9 % High 47-70 [facility] Comment on above: Performed By: #### L 100.0100, L500.3400, L500.2500, L700.6800, L501.2450 #### [facility] [address] [place], [address] Nucleated RBC (Bld) [#/Vol] 0 10*3/uL Normal 0-5 [facility] Comment on above: Performed By: #### L 100.0100, L500.3400, L500.2500, L700.6800, L501.2450 #### [facility] [address] [place], [address] Platelet mean volume (Bld) [Entitic vol] 10.9 fL Normal 6.2-12.0 [facility] Comment on above: Performed By: #### L 100.0100, L500.3400, L500.2500, L700.6800, L501.2450 #### [facility] [address] [place], [address] Platelets (Bld) [#/Vol] 279 10*3/uL Normal 150-450 [facility] Comment on above: Performed By: #### L 100.0100, L500.3400, L500.2500, L700.6800, L501.2450 #### [facility] [address] [place], [address] RBC (Bld) [#/Vol] 4.48 10*6/uL Normal 4.2-5.4 [facility] Comment on above: Performed By: #### L 100.0100, L500.3400, L500.2500, L700.6800, L501.2450 #### [facility] [address] [place], [address] RDW SD 36.9 fl Normal 35.1-43.9 [facility] Comment on above: Performed By: #### L 100.0100, L500.3400, L500.2500, L700.6800, L501.2450 #### [facility] [address] [place], [address] WBC (Bld) [#/Vol] 16.3 10*3/uL High 4.4-11.0 [facility] Comment on above: Performed By: #### L 100.0100, L500.3400, L500.2500, L700.6800, L501.2450 #### [facility] [address] [place], [address] Cholangiogram/ O R,Initialon 07-15-2024 Cholangiogram/ O R,Initial [facility] Imaging Services [address] [place] [address] Cholangiogram/ O R,Initial MR#: [id number] Acct: [id number] Name: KATE MCKEON Rep #: [id number] : 1980 F 44 From: Ha Suarez PCP: Dr. Aurelio Alexis MD Status: ADM LB Study: Cholangiogram/ O R,Initial Date of Exam: 07/15 Exam# [id number] Ordering Dr: Burke Hurtado MD EXAM: Intraoperative fluoroscopy, also with fluoroscopic images obtained CLINICAL HISTORY: Cholecystectomy. COMPARISON: None TECHNIQUE: Intraoperative fluoroscopy was obtained, along with numerous cholestatic images during contrast injection to the cystic duct. RAD/Cholangiogram/ O R,Initial IMPRESSION: Intraoperative fluoroscopy was obtained, along with numerous cholestatic images during contrast injection to the cystic duct. No residual stone is seen within visualized areas. Reading Location: [id number] CC: Dr. Aurelio Alexis MD; Dr. Burke Hurtado MD Cook Room Supervisor: Signed Normal [facility] Emergency Department Summary on 07-15-2024 Emergency Department Summary [facility] Medical Records Department [address] [place] [address] Emergency Department Summary 07/15/24 MR#: [id number] Acct: [id number] Name: KATE MCKEON Rep #: [id number] : 1980 44 From: Marcos Rodriguez PCP: Dr. Aurelio Alexis MD Status:REG ER Location: ED HPI HPI - GI History of Present Illness Chief Complaint: Abd Pain Informant: patient and spouse/S.O. Narrative Narrative: Presents with spouse evaluation epigastric pain to her back waking her at midnight less than 4 hours prior to arrival. Nausea vomiting x 3. Close her eyes therefore did not evaluate the color no diarrhea. No abdominal surgeries. No urinary symptoms. No fever chills or sweats. No history of similar. She does drink 2-3 alcoholic drinks each night. No history of pancreatitis. No allergies to any medicines. Prior similar symptoms: No PFSH PFSH Medical History Depression Anxiety Asthma Colon polyps Home Medications ???Medication ???Instructions ???Recorded ???Last Taken ???Type albuterol sulfate 90 mcg/actuation 2 puff inhalation Q4H PRN PRN Unknown History aerosol inhaler shortness of breath or wheezing loratadine 10 mg tablet 10 mg PO DAILY 07/15/24 Unknown Hi story (Allerclear) lorazepam 0.5 mg tablet 0.25 - 0.5 mg PO BID PRN PRN 07/15 Unknown History anxiety Allergy/AdvReac Type Severity Reaction Status Date / Time No Known Allergies Allergy Verified 07/15/24 03:09 Social History Smoking Status: Never smoker ROS ROS ED Constitutional Constitutional ED: Denies chills, fever(s) or sweats ENT ENT ED: Denies sore throat Cardiovascular Cardiovascular: Denies chest pain, leg edema, palpitations or racing heartbeat Respiratory/Chest Respiratory/Chest: Denies cough, dyspnea or dyspnea on exertion Gastrointestinal Gastrointestinal: Reports abdominal pain, nausea and vomiting; Denies diarrhea Genitourinary Genitourinary ED: Denies dysuria, hematuria or urinary frequency Musculoskeletal Musculoskeletal: Denies back pain, extremity pain or neck pain Integumentary Denies rash or wounds Neurologic Neurologic: Denies headache(s), paresthesias or weakness EXAM Physical Exam Const Vital Signs: 07/15/24 03:10 07/15/24 05:09 07/15/24 07:00 Temperature 98.1 F Temperature Source Oral Pulse Rate 71 79 79 Respiratory Rate 16 16 16 Blood Pressure 119/81 H 122/69 H 124/74 H Blood Pressure Mean 93 86 90 Pulse Ox 98 100 97 Oxygen Delivery Method Room Air Room Air Room Air Positive well nourished and well developed General Appearance ED: well developed and NAD HEENT Reports moist mucous membranes normocephalic and atraumatic Eyes General Eye ED: Yes normal appearance of both eyes Neck full ROM Chest Wall Chest: Negative for tenderness Resp normal respiratory effort and normal air movement Effort and Inspection: symmetric chest movement; Negative for respiratory distress Cardio regular rate, regular rhythm and no murmurs Peripheral Pulses: pulses 2+ throughout GI normal to inspection, nondistended, normoactive bowel sounds GI Narrative: Tender epigastric and right upper quadrant, negative McBurney's Palpation: Negative for rebound tenderness present Extremity normal to inspection General Extremety ED: Negative for edema or tenderness General Extremity: Negative for edema Neuro oriented x3 and no sensory deficits noted Sensorium / Orientation: awake and alert Skin no rashes or lesions noted and no wounds MDM MDM MDM Narrative Medical decision making narrative: Interventions / MDM: Differential diagnosis: Abdominal pain, nausea and vomiting, cholelithiasis, cholecystitis Diagnosis considered but do not suspect: Pancreatitis however lipase and CT normal. My EKG interpretation: N/A Imaging independently reviewed and interpreted by myself: CT abdomen pelvis: Discussion with radiologist liver hemangioma, mild periportal edema distended gallbladder. Uterine fibroids and mild free fluid in the pelvis. Right upper quadrant ultrasound: Cholelithiasis External documents reviewed: N/A Test considered but not ordered:N/A ED course: Tender epigastric right upper quadrant pain to her back. IV established will check abdominal labs, fluids morphine Zofran Pepcid ordered. CT scan abdomen pelvis for further evaluat ion. 0400: White count 16. hCG negative. Awaiting CT and results of other labs. 0635: Labs normal electrolytes lipase and liver enzymes. Pain returning epigastric right upper quadrant. Additional morphine Zofran ordered. With distended gallbladder and leukocytosis will order for right upper quadrant ultrasound for further evaluation. 08 (more content not included)... Normal [facility] Gallbladderon 07-15-2024 Gallbladder [facility] Imaging Services [address] [place], [place] [id number] Gallbladder MR#: [id number] Acct: [id number] Name: KATE MCKEON Rep #: [id number] : 1980 F 44 From: Surya Barkley MD PCP: Dr. Aurelio Alexis MD Status: REG ER Study: Gallbladder Date of Exam: 07/15/24 Exam# [id number] Ordering Dr: Marcos Casiano DO PROCEDURE: GALLBLADDER REASON FOR EXAM: Right upper quadrant pain. COMPARISON: No relevant prior. FINDINGS: Liver: Sagittal measurement of 17.3 cm. Normal echogenicity. Homogeneous parenchyma. Gallbladder: Multiple hyperechogenic foci. No wall thickening or pericholecystic edema. Common bile duct: 0.9 cm . Pancreas: Visualized portions are sonographically unremarkable. Right kidney is unremarkable. 11.5 x 5.6 x 4.8 cm. Right renal cortex measures 1.4 cm. US/Gallbladder IMPRESSION: Cholelithiasis. Reading Location: [facility] CC: Dr. Aurelio Alexis MD; Dr. Marcos Casiano DO Cook Room Supervisor: Signed Normal [facility] Lipaseon 07-15-2024 Lipase [Catalytic activity/Vol] 35 U/L Normal 13-75 [facility] Comment on above: Result Comment: Plea se note: LIPASE revised reference range effective 22. New Lipase methodology. Expected to produce lower values than the previous assay method. NEW Reference Range: 13 - 75 U/L Performed By: #### L 100.0100, L500.3400, L500.2500, L700.6800, L501.2450 #### [facility] [address] [facility] [place], [address] Liver Profileon 07-15-2024 Albumin [Mass/Vol] 3.9 g/dL Normal 3.2-5.0 [facility] Comment on above: Performed By: #### L 100.0100, L500.3400, L500.2500, L700.6800, L501.2450 #### [facility] [address] [place], [address] ALK P 53 U/L Normal 45-117 [facility] Comment on above: Performed By: #### L 100.0100, L500.3400, L500.2500, L700.6800, L501.2450 #### [facility] [address] [place], [address] ALT [Catalytic activity/Vol] 25 U/L Normal 13-56 [facility] Comment on above: Performed By: #### L 100.0100, L500.3400, L500.2500, L700.6800, L501.2450 #### [facility] [address] [place], [address] AST [Catalytic activity/Vol] 10 U/L Low 15-37 [facility] Comment on above: Performed By: #### L 100.0100, L500.3400, L500.2500, L700.6800, L501.2450 #### [facility] [address] [place], [address] Bilirubin [Mass/Vol] 0.20 mg/dL Normal 0.20-1.00 [facility] Comment on above: Result Comment: For patients on eltrombopag therapy, use of Dimension [place] TBIL is not recommended. Performed By: #### L 100.0100, L500.3400, L500.2500, L700.6800, L501.2450 #### [facility] [address] [place], [address] Bilirubin.direct [Mass/Vol] 0.13 mg/dL Normal 0.00-0.30 [facility] Comment on above: Performed By: #### L 100.0100, L500.3400, L500.2500, L700.6800, L501.2450 #### [facility] [address] [place], [address] Globulin (S) [Mass/Vol] 3.4 g/dL Normal 2.2-4.2 [facility] Comment on above: Performed By: #### L 100.0100, L500.3400, L500.2500, L700.6800, L501.2450 #### [facility] [address] [place], [address] T PROT 7.3 g/dL Normal 6.4-8.2 [facility] Comment on above: Performed By: #### L 100.0100, L500.3400, L500.2500, L700.6800, L501.2450 #### [facility] [address] [facility] [place], [address] MR/POSTOP.ANEon 07-15-2024 MR/POSTOP.[facility] Medical Records Department [address] [place] [address] Anesthesia Postop Eval I 07/15/24 1630 MR#: [id number] Acct: [id number] Name: KATE MCKEON Rep #: [id number] : 1980 44 From: Clementina Victoria CRNA PCP: Dr. Aurelio Alexis MD Status:ADM LB Y Race: C Location: [place] [address] Anesthesia: Postop Eval I Current Vital Signs Temperature: 98.4 F Pulse Rate: 89 Blood Pressure: 139/86 Respiratory Rate: 20 Pulse Ox: 96 Oxygen Delivery Method: Room Air Assessment Airway patent: Yes Spontaneous unlabored respirations: Yes Mental status: Awake nausea: No Vomiting: No Anesthesia Complication: No Fluid Hydration Crystalloid volume administer (ml): 900 Total IV fluid infused: 900 Progress Note Anesthesia document: Postop Eval 1 completed: Yes 07/15/24 1631 Date Clementina Victoria SPRINKLER INSPECTOR Cosigner Signature: Date CC: Signed Normal [facility] MR/[id number] 07-15-2024 MR/POSTOPAN2 [facility] Medical Records Department [address] [place] [address] Anesthesia Postop Eval II 07/15/24 2342 MR#: [id number] Acct: [id number] Name: KATE MCKEON Rep #: [id number] : 1980 44 From: Terry Mehta MD PCP: Dr. Aurelio Alexis MD Status:ADM LB Y Race: C Location: [place] [address] Anesthesia Postop Eval I Sum Postop Eval Completion status Anesthesia document: Postop Eval 1 completed: Yes Anesthesia Postop Eval I Summary Anesthesia Postop Eval I Summary: Anesthesia Postop Eval I: Assessment Summary Airway patent Yes 07/15/24 16:31 SPRINKLER INSPECTOR.JSWI Spontaneous unlabored Yes 07/15/24 16:31 SPRINKLER INSPECTOR.JSWI respirations Mental status Awake 07/15/24 16:31 SPRINKLER INSPECTOR.JSWI nausea No 07/15/24 16:31 SPRINKLER INSPECTOR.JSWI Vomiting No 07/15/24 16:31 SPRINKLER INSPECTOR.JSWI Anesthesia Postop Eval I: Fluid Summary Crystalloid volume administer 900 07/15/24 16:31 SPRINKLER INSPECTOR.JSWI (ml) Colloids volume administered ( ml) Blood Product volume administered (ml) Total IV fluid infused 900 07/15/24 16:31 SPRINKLER INSPECTOR.JSWI Anesthesia Postop Eval I: Summary Notes Anesthesia Complication No 07/15/24 16:31 SPRINKLER INSPECTOR.JSWI Anesthesia Complication Comment: Post-operative progress note Anesthesia: Postop Eval II Evaluation Mental status: Awake and Calm Pain Level: 1 nausea: No Vomiting: No Complications Anesthesia Complication: No 07/15/24 2342 Date Terry Mehta MD Cosigner Signature: Date CC: Signed [facility] O.R. Fluoro for C-Alverto 06-18 O.R. Fluoro for C-Arm [facility] Imaging Services [address] [place] [address] O.R. Fluoro for C-Arm MR#: [id number] Acct: [id number] Name: JOÃOWILFREDOKATE Farmer Rep #: [id number] : 1980 F 44 From: Ha Suarez PCP: Dr. Aurelio Alexis MD Status: ADM LB Study: O.R. Fluoro for C-Arm Date of Exam: 07/15/24 Exam# [id number] Ordering Dr: Burke Hurtado MD EXAM: Intraoperative fluoroscopy, also with fluoroscopic images obtained CLINICAL HISTORY: Cholecystectomy. COMPARISON: None TECHNIQUE: Intraoperative fluoroscopy was obtained, along with numerous cholestatic images during contrast injection to the cystic duct. RAD/O.R. Fluoro for C-Arm IMPRESSION: Intraoperative fluoroscopy was obtained, along with numerous cholestatic images during contrast injection to the cystic duct. No residual stone is seen within visualized areas. Reading Location: [id number] CC: Dr. Aurelio Alexis MD; Dr. Burke Hurtado MD Cook Room Supervisor: Signed [facility] Operative Reporton Operative Report [facility] Medical Records Department [address] [place] [address] Operative Report 07/15/24 1640 MR#: [id number] Acct: [id number] Name: KATE MCKEON Rep #: [id number] : 1980 44 From: Burke Hurtado MD PCP: Dr. Aurelio Alexis MD Status:ADM LB [facility] Digestive 40xxx-49xxx: [address] Laparo cholecystectomy/graph Operative Report (Standard) Operative Information Date of Procedure: 07/15/24 Pre-Operative Diagnosis: Acute cholecystitis/cholelit hiasis Post-Operative Diagnosis: Same Surgery/Procedure Performed: Laparoscopic cholecystectomy with intraoperative cholangiograms customer retention specialist: Yes Tavern Car Attendant: Di Huertas Tasks completed by nurse first assist: Closing, Trocar and Retracting Additional housekeeping assistant?: No Type of Anesthesia: General and Local RN Documented Start/Stop Times: Operation Date: 07/15/24 14:30 Case Time Into Pre-Op 07/15/24 13:56 Out of Pre-Op 07/15/24 14:34 Into Room 07/15/24 14:42 Anesthesia Start 07/15/24 15:03 Procedure Start 07/15/24 15:03 Procedure End 07/15/24 16:14 Anesthesia End 07/15/24 16:26 Out of Room 07/15/24 16:26 Into Recovery 07/15/24 16:28 Procedure Start Time: 15:03 Procedure Stop Time: 16:14 Select all DRAINS/GRAFTS/IMPLANTS that apply: None Special Medications: Zosyn IV Estimated Blood Loss: 5 mL Specimen collected: Yes Description of specimen(s) removed: Gallbladder Description of surgery: The patient is a 44-year-old female who presented to the emergency room overnight with epigastric and right upper quadrant pain. She was found to have gallstones and had an elevated white blood cell count. Based on the white count and pain, we made the decision to admit her for cholecystectomy. We discussed the details of the planned procedure including the risks benefits and alternatives. She wished to proceed. She was brought to the operating room today following informed consent. Preoperative antibiotics were given. A timeout was performed. She was placed supine the operative table with arms outstretched on arm boards. Her abdomen is then prepped and draped in the usual sterile manner. A 5 mm incision was made just below the umbilicus which a 5 mm trocar was placed optically. This was placed without incident. A 5 mm 0 degree scope was inserted. The abdomen was insufflated. There were no signs of bowel or vascular injury. Next two 5 mm trocars were placed under direct visualization in the right upper quadrant. A 10 mm trocar was placed in the epigastric area. The gallbladder was identified. It was reflected in cephalad direction up and over the liver. The gallbladder wall was somewhat thickened he could certainly see some subcutaneous edema around the gallbladder. This especially true down by the infundibulum. The infundibulum was then dissected carefully. The cystic duct and cystic artery were identified and dissected out circumferentially. A critical view of safety was obtained. There were 2 and only 2 structures going to the gallbladder. The clip education program specialist was then used to place a clip on the gallbladder side the cystic duct. Scissors were then used to make a small ductotomy. Cholangiogram catheter was then inserted and cholangiograms were then performed using about 10 cc of contrast. This showed good opacification of the biliary tree without any obvious filling defects. The cholangiogram catheter was then removed. 310 mm clips were placed across the cystic duct stump. The cystic artery was then clipped with 2 clips proximally and 1 distally. This too was then transected. After this the gallbladder was then bovied off the undersurface of the liver. There was quite a bit of edema present. Once the gallbladder was free was placed into a bag and brought out through the 10 mm trocar site. We did need to extend the skin as well as the fascial incision to extract the large, stone filled and edematous gallbladder. Once this was performed the trocar was replaced. The right upper quadrant is then copiously irrigated hemostasis was excellent. The fascia at the epigastric incision site was closed using 0 PDS with the aid of the fascial closure device. The remaining trocars were opened up and insufflation was allowed to escape. Local anesthetic was injected into each of the incisions. The incisions were then closed with 4-0 Vicryl. Skin glue was applied as dressing. She was awakened anesthesia and taken to PACU in good condition. A PROPERTY MANAGEMENT BOOKKEEPER was utilized as a first calender worker. Her role included holding the camera, inserting trocars under my supervision, retracting the gallbladder, and assisting with skin closure Surgical Findings: Normal cholangiograms Complications Complications: No Admit VTE Documentation VTE Present on Admission: No VTE Mechan Device Prophylaxis: SCD's VTE Pharm Prophylaxis ordered?: No Reason pr (more content not included)... Normal [facility] ,Serum,hCG Quali.on 07-15-2024 HCG, SERUM QUAL Negative Normal [facility] Comment on above: Performed By: #### L 100.0100, L500.3400, L500.2500, L700.6800, L501.2450 #### [facility] [address] [place], [place], [id number] Surgery Specimen Level IIIon 07-15-2024 Surgery Specimen Level III ---- Patient Age/Sex Location Account Attending Physician ---- KATE MCKEON 44/F MS3 [id number] Dr. Burke Hurtado MD ---- Specimen: [id number] Received: 07/16/24 Status: STEPHANIE Llamas Num: [id number] Spec Type: ROSCOE Cortes Dr: Dr. Burke Hurtado MD HEADER OPERATION: Laparoscopic cholecystectomy with IOC PRE-OP DIAGNOSIS: Symptomatic cholelithiasis TISSUE SUBMITTED: Gallbladder ---- MICROSCOPIC DIAGNOSIS Gallbladder, cholecystectomy: Chronic ulcerated cholecystitis, cholelithiasis and cholesterolosis. MAYANK. 07/19/2024 MICROSCOPIC DESCRIPTION Slides are reviewed. GROSS DESCRIPTION Received is one container labeled with the patient's name and designated gallbladder. The specimen consists of a gallbladder measuring 8 cm in length and up to 4 cm in diameter. The external surface is pink-doran, smooth and glistening for the most part. Focally it is granular, hemorrhagic and contains cautery artifact. The gallbladder contains green yellow mucoid bile and multiple yellow mulberry stones and stone fragment measuring in aggregate 4.5 x 4.5 x 1.5 cm and 0.1 to 1.5 cm in greatest dimension. The mucosa also shows several yellowish streaks consistent with cholesterolosis. The mucosa is bile-stained and without any mass lesions. The gallbladder wall measures up to 0.3 cm in thickness. Provider Engagement Executive sections from the gallbladder and the cystic duct are submitted in one cassette. / SJ: 07/16/2024 TC:3 CPT: 97170 ---- Patient Age/Sex Location Account Attending Physician ---- JOÃOKATE VILLALOBOS 44/F MS3 [id number] Dr. Burke Hurtado MD ---- Signed (signature on file) Dr. Tunde Waters MD 07/19/24 151 ---- Normal [facility] Comment on above: Performed By: #### P SUIII #### [facility] [address] [place], [address] DBT Breast - bilateral scree pilarangelina 08-04-2023 [facility] Provider Note - ED v3on 11-0 Provider Note - ED v3 Provider Note: Chart Review: HISTORY OF PRESENTING ILLNESS KATE is a 42 year old Female and was seen by me at 18-Apr-2022 11:39. The historian is the patient. Triage Information: Most recent Vital Sign Value Date PAST MEDICAL HISTORY ALLERGIES/INTOLERANCES : No Known Allergies HEALTH HISTORY: History of anxiety; no other known health issues. Family history: no pertinent history. Social history: non-smoker. 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 OUTPATIENT MEDICATIONS: Home Medications Review Status for Reconciliation: Complete Med Status: Patient Currently Takes Medications Drug Name: Magnesium Chloride With Calcium Instructions: null Drug Name: Lexapro 5 mg oral tablet Instructions: 2 tab(s) orally once a day Drug Name: Ativan 0.5 mg oral tablet Instructions: 0.5 tab(s) orally once a day, As Needed Drug Name: albuterol 90 mcg/inh inhalation aerosol Instructions: 2 puff(s) inhaled every 4 hours, As Needed for wheezing or shortness of breath Drug Name: Zithromax Z-Curly 250 mg oral tablet Instructions: 2 tab(s) by mouth at once on day 1, then 1 tablet once a day on days 2-5 SIGNIFICANT EVENTS: Other Description:NON SMOKER Additional Notes:09/2021 Past Surgical History Description:FIBROIDS Description:COLONOSCOP Y Social/Behavioral Description:SOCIAL DRINKER No other known significant events or other known past surgical history. Has received the COVID vaccine x3. CRITICAL CARE VITAL SIGNS: T PRBP SpO2O2(LPM) %FiO2 Method 18-Apr-2022 11:25:[id number]/8 5 100 Patient declines recheck BP - states is asymptomatic and BP is normal at home. MDM MDM/ED COURSE: This note was generated with voice recognition software and may contain errors including spelling, grammar, syntax, and misrecognization of what was dictated CHIEF COMPLAINT sore throat, postnasal drip, chest congestion/cough HISTORY OF PRESENT ILLNESS Patient presents today with complaints of fatigue, a sore throat, PND, and chest congestion with a harsh, dry cough - sxs started on Friday. She reports has also had nasal congestion (green mucus), intermittent headaches, and an area that feels swollen in her L armpit. She denies any fever/chills, sinus tenderness, ear pain, abdominal pain, chest pain, wheezing/shortness of breath, rashes, urinary symptoms, nausea/vomiting, and diarrhea. Denies any current lightheadedness or dizziness; no changes in mental status. No swelling in legs. Appetite is normal and is able to drink fluids without difficulty; reports diminished sense of taste but denies any loss of sense of smell. Reports feels like symptoms are getting worse since onset. Has been taking Mucinex, EmergenC, and Ibuprofen with only temporary relief; no other [id number] medications or home remedies for symptom management. Several coworkers are currently ill with COVID; no other known ill contacts. Has received the COVID-19 vaccine x3; had COVID infection ~1 year ago. Is not a smoker; has history of childhood asthma but no recent c/o. FDLMP was 2-3 weeks ago. REVIEW OF SYSTEMS 10 systems reviewed negative with exception of history of present illness listed above PHYSICAL EXAMINATION General: Mildly ill-appearing, well nourished female; alert and oriented; in no acute distress. Sitting comfortably on exam table. Non-dyspneic. Eyes: Pupils equal, round and reactive to light. No conjunctival erythema; no scleral icterus. HENT: No frontal or maxillary sinus tenderness; + audible nasal congestion. Airway patent, TMs and ear canals clear bilaterally. Nasal mucosa mildly injected and edematous. Oral mucosa moist. Posterior pharynx pink but without vesicles or oropharyngeal exudate aside from PND. Uvula is midline. Managing oral secretions without difficulty. Neck: Supple. Tender, mobile anterior cervical lymphadenopathy bilat. Trachea is midline. Respiratory: Respirations easy and unlabored, Breath sounds equal. Lungs are clear to auscultation; no wheezes, rhonchi, or rales; has good air movement throughout. Harsh, non-productive cough noted. Non-dyspneic with ambulation; able to maintain SpO2. Cardiovascular: Normal rate, Regular rhythm. Normal S1S2. No m/r/g. No peripheral edema. Gastrointestinal: Soft, non-tender, non-distended; no palpable masses or organomegaly. Bowel sounds normoactive. Lymphatic: L axillary fullness with mild tenderness. Musculoskeletal: Grossly normal; appropriate for age. Integumentary: [place], warm, dry, and intact. No rashes or skin discoloration appreciated. Good skin turgor. Neurologic: Alert and oriented, no gross deficits. Cognition and Speech: Oriented, Speech clear and coherent. Psychiatric: Cooperative, Appropriate mood & affect. MEDICAL DECISION MAKING Course: Worsening; stable. Impression/Plan: No red flags on exam today. I have reviewed the (more content not included)... Normal Located Within [facility] UA DIP, URINE (POC)on 2021 BILIRUBIN UA (POCT) Negative Negative [facility] CLARITY UA (POCT) Clear [facility] COLOR UA (POCT) Yellow [facility] GLUCOSE UA (POCT) Negative Negative mg/dL [facility] HEMOGLOBIN/BLOOD UA (POCT) Small Abnormal Negative [facility] KETONE UA (POCT) Negative [facility] LEUK[facility] (POCT) Small Abnormal Negative [facility] NITRITE UA (POCT) Negative Negative [facility] PH UA (POCT) 7.0 4.5 - 8.0 [facility] Protein Ql (U) Negative Negative mg/dL [facility] SPECIFIC GRAVITY UA (POCT) 1.015 1.005 - 1.030 [facility] UROBILINOGEN UA (POCT) 0.2 E.U./dL Normal E.U./dL [facility] Provider Note - ED v3on 05-0 Provider Note - ED v3 Provider Note: Chart Review: HISTORY OF PRESENTING ILLNESS KATE is a 41 year old Female and was seen by me at 17-Oct-2021 16:06. Triage Information: Most recent Vital Sign Value Date PAST MEDICAL HISTORY CURRENT OR FORMER SUBSTANCE USE: Tobacco/Nicotine Use: never smoker Alcohol Use: daily (Wine/ Vodka/ IPA) ALLERGIES/INTOLERANCES : No Known Allergies HEALTH HISTORY: No documented data. 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 This note may contain spelling, grammar, formatting erros and misrecognization of what was dictated. CC: Painful urination HPI: Historian: Patient The patient presents today with symptoms starting 1 days ago. Symptoms include see ROS and Negative for see ROS Aggravating factors include urinating. Relieving factors include denies. The patient has had similar symptoms before. Patient has a hx of kidney stones, and yeast infections.. Patient did a home test yesterday for yeast and that was negative. Patient also took azo at home. Patient has been in the hot tub at home. REVIEW OF SYSTEMS (+)=Complains of (-)= Denies General: (-) Weakness, (-) Fatigue, (-)Fever. Pulmonary: (-) Cough, (-)Dyspnea, (-)Wheezing. Cardiac: (-) Chest pain, (-)Edema Gastrointestinal: (-)Nausea, (-)Vomiting, (-)Diarrhea, (+ lower abdominal tenderness)Abdominal Pain. Urinary:(-) Frequency, (+)Urgency, (+)Pain during urination, (-)Hematuria BUREAU CHIEF: (+) vaginal discharge (+) vaginal itching. Psychological: (-)Anxiety, (-)Depression, (-)Thoughts or plan of self-harm. PHYSICAL EXAM Patient in seated position. Appearance well groomed, alert and orientated, no acute distress, speech clear, and evenly paced, good historian, cooperative. Head: Normocephalic. Ear: External pinna skin intact with no mases, lesions, tenderness, or discharge. Otoscopic: Landmarks external canals clear with no redness swelling, lesions, discharge. TM bilaterally pearly schmidt with light reflex and landmarks intact, no perforation. Nose: Nose symmetric, no deformity, or lesions, nares patent, mucosa pink, no discharge, lesions, polyps, no septal deviation or perforation. Sinus : No tenderness to ethmoid, and maxillary sinus upon palpation, No transillumination diffuse red glow noted. Mouth: Throat mucosa pink, no lesions, or exudate. Uvula midline rises on phonation. , + gag reflex. Lips moist and pink. Teeth intact and well maintained no missing or chipped teeth. No foul-smelling odor from breath. Soft and hard palpate intact. Tongue surface smooth, shiny with veins. Skin: Skin is warm and dry, no rashes, edema, bruising or lesion, appropriate color for ethnicity. Cardiac: Regular S1 S2 no murmur, gallop/rub noted Lungs: Inspection +symmetric expansion, Patient sitting, respirations full, easy, and unlabored, skin color appropriate for ethnicity, pink, no cyanosis, or lesions noted. Auscultation Patient supine clear to auscultation bilaterally all vesicular bowser. Tracheal/bronchial- loud high pitch. Bronchovesicular moderate pitch. Abdomen: Inspection: Shape: flat Muscle: normal; no ridge noted. Masses: No masses noted bilaterally. Auscultation: Bowel sounds: normal high pitched, gurgling, occurring irregular 5-30 seconds. Percussion: CVA: thud with no pain noted Palpation: Light and Deep: abdomen soft, no guarding, rigidity, large masses, or tenderness noted. Diagnostic: Urinalysis without microscope Glucose negative Bilirubin negative Ketone negative Specific [place] 1.010 Blood small pH 6.5 Protein negative Urobilinogen 0.2 Nitrite negative Leukocytes Trace Patient Impression/Plan/ Education and Follow up: Exam consistent with UTI and yeast infection although reviewed other potential etiologies such as kidney stone. No CVA tenderness, is afebrile, and no other red flags on exam. Patient will be discharged home with oral antibiotics. Instructed to begin Macrobid and Diflucan JENNIFER (reviewed expectations and common side effects of treatment), and complete full course (more content not included)... Normal [facility] SCREENING [facility] 09-27 [facility] Provider Note - ED v3on 04-0 Provider Note - ED v3 Provider Note: Chart Review: HISTORY OF PRESENTING ILLNESS KATE is a 41 year old Female and was seen by me at 20-Sep-2021 10:59. Triage Information: Most recent Vital Sign Value Date PAST MEDICAL HISTORY CURRENT OR FORMER SUBSTANCE USE: Tobacco/Nicotine Use: never smoker Alcohol Use: occasionally ALLERGIES/INTOLERANCES : No Known Allergies HEALTH HISTORY: No documented data. 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 Chief Complaint: ``Congestion HPI: Historian Patient States that symptoms started 4 weeks ago. Complains of see ROS. Denies see ROS Has tried taking mucinex, and Claritin. Factors that aggravate symptoms include weather changes. 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 Patient has had similar symptoms like this before-with a sinus infection. Recent Travel A month ago [place] History of COVID infection: Yes Vaccination for COVID: x3 Review of Systems (+)=Complains of (-)= Denies General: : (-)Weakness, (+)Fatigue,(-)Headache and (-)Fever (-) Chills (-) Loss of Taste (-) Loss of Smell Mouth/Throat: (+) Sore Throat, (- )Hoarseness, (+)Post nasal drip Eyes:(-) Eye pain, (-)change in vision,( -)redness (-) discharge Neck:(+ maybe) Swollen Glands, (-)Stiffness, Nose/Sinuses:(+) Nasal Stuffiness, , (+)Discharge, (-)Sinus Pressure. Ears: (+ right) Pain, (-) Fullness (-)Discharge, (-)Ringing, (-) Dizziness. Skin: (-) itching,(-) change to hair and nails,( -)rash Pulmonary: (+) Cough(,sometimes productive), (+ at times) Dyspnea, (-)Wheezing. Cardiac: (-) Chest pain, (-) Chest Congestion, (-)Edema. Gastrointestinal: (-) Nausea,(-) Vomiting,( + this morning)Diarrhea( -)Abdominal Pain. Psychological: (+ a little is taking ativan ) Anxiety, (-) Depression, (-) Thoughts of self-harm. PHYSICAL EXAM Patient in seated position. Appearance {fatigue, with dull nasal voice} well groomed, alert and orientated, no acute distress, speech clear, and evenly paced, good historian, cooperative. Head: Normocephalic Neuro: No focal neurologic deficits. Age-appropriate, interactive, and, again, nontoxic in appearance. Ear: External pinna skin intact with no mases, lesions, or discharge. No tenderness with manipulation of tragus and pinna. No tenderness, erythema, or swelling over mastoid. Otoscopic: Landmarks external canals clear with no redness swelling, lesions, discharge. TM bilaterally pearly schmidt with light reflex and landmarks intact, no perforation. Eye: Light reflex: symmetrical bilaterally Inspection: Brows and lashes present no ptosis, conjunctiva clear, sclera white, cornea smooth and clear no lesions. Nose: Nose symmetric, no deformity, or lesions, nares patent, mucosa pink,, lesions, polyps, no septal deviation or perforation. [No] Audible nasal congestion noted no discharge noted. Sinus : [No] tenderness to ethmoid, and maxillary sinus upon palpation, [No] transillumination diffuse red glow noted. Mouth: Throat mucosa [ erythematous], no lesions, exudate is noted. post nasal drip is noted. Uvula midline rises on phonation. + gag reflex. Lips moist and pink. Teeth intact and well maintained no missing or chipped teeth. No foul-smelling odor from breath. Soft and hard palpate intact. Tongue surface smooth, shiny with veins. Neck: no tender high anterior/posterior cervical lymphadenopathy Skin: Inspection: Visible Color: appropriate for ethnicity Moisture: dry to touch throughout Temperature: warm bilaterally Tenderness: no tenderness noted Texture: smooth, Edema: none noted Cardiac: Regular rate, rhythm. No murmur rubs or gallops. Lungs: Inspection +symmetric expansion, Patient sitting , respirations full, easy, and unlabored, skin color appropriate for ethnicity, pink, no cyanosis, or lesions noted. Auscultation Lungs clear and equal bilaterally. No stridor. No wheezes, rales or rhonchi. (more content not included)... Normal Located Within [facility] ED Provider Noteon 0 ED Provider Note Provider Note - ED v 2: Chart Review: HISTORY OF PRESENTING ILLNESS KATE is a 39 year old Female and was seen by me at 29-Oct-2019 09:38 for a chief complaint of (Increased urinary frequency). Other complaints include: Patient presents for evaluation of increased urinary frequency and systems consistent with ureteral colic. Patient reports several days of symptoms without trauma, fall, or other known precipitating event. Patient denies prior UTI or prior ureterolithiasis. Patient states over the past several days, the pain has been colicky and has moved towards the bladder. Patient has increased fluid intake and has been drinking cranberry juice. No fever, vomiting, change in bowel habits, or any other constitutional signs or symptoms. No other complaints.. Triage Information: Most recent Vital Sign Value Date PAST MEDICAL HISTORY ATTESTATION: I have reviewed and confirmed nurse's/medic's notes for patient's medications, allergies, medical history, and surgical history ALLERGIES/INTOLERANCES : No Known Allergies HEALTH HISTORY: No documented data. 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 Integumentary: No rash. Neurologic: Alert and oriented X4, No numbness, No tingling. All other systems are negative PHYSICAL EXAM CONSTITUTIONAL: Well appearing, well nourished, awake, alert, oriented to person, place, time/situation and in no apparent distress. EYES: Clear bilaterally, pupils equal, round and reactive to light. GASTROINTESTINAL: Mild left lower quadrant tenderness without guarding, rebound, or referred; remaining abdomen unremarkable; negative CVA tenderness NEUROLOGICAL: Alert and oriented, no focal deficits, no motor or sensory deficits. SKIN: Skin normal color for race, warm, dry and intact. No evidence of trauma. MEDICAL DECISION MAKING/ED COURSE MDM/ED COURSE: Urinalysis showed small blood without evidence of infection. Urine sent for culture. Patient's history and presentation is most consistent with ureteral colic secondary to ureterolithiasis however, patient advised that this cannot be proven without a CT abdomen pelvis. Agreed to attempt to treat as outpatient with Cipro, Flomax, and Toradol. Dangers of Toradol reviewed. Patient advised that should pain worsen, become intractable, or other constitutional symptoms present, ER visit is necessary. Patient agreed. Patient's clinical presentation is otherwise unremarkable at this time. Patient is discharged with instructions to follow-up with primary care or seek emergency medical attention for worsening symptoms or any new concerns. CLINICAL IMPRESSION Diagnosis/Annotation: ED Dx Name:Hematuria Code:R31.9 Name:Ureteral colic Code:N23 Dispostion: discharged Type: home ATTESTATION CRITICAL CARE TIME Is this a critically ill patient?: no Electronic Signatures: Graeme Santiago (PAC) (Signed 29-Oct-2019 10:25) Authored: Provider Note - ED v2 Last Updated: 29-Oct-2019 10:25 by Graeme Santiago (PAC) Normal [facility] Vital Signs Date Time Vital Sign Value Performing Clinician Facility 12-21-2024 13:14-040 Body height 170.5 cm Aurelio Alexis MD Work Phone: [facility] 12-21-2024 13:14-0400 Body mass index (BMI) [Ratio] 26.28 kg/m2 Aurelio Alexis MD Work Phone: [facility] 12-21-2024 13:14-0400 Body weight 76.4 kg Aurelio Alexis MD Work Phone: [facility] 12-21-2024 13:14-0400 Diastolic blood pressure 83 mm[Hg] Aurelio Alexis MD Work Phone: [facility] 12-21-2024 13:14-0400 Heart rate 79 /min Aurelio Alexis MD Work Phone: [facility] 12-21-2024 13:14-0400 Respiratory rate 16 /min Aurelio Alexis MD Work Phone: [facility] 12-21-2024 13:14-0400 Systolic blood pressure 121 mm[Hg] Aurelio Alexis MD Work Phone: [facility] 12-19-2023 13:31-0400 Diastolic blood pressure 72 mm[Hg] Aurelio Alexis MD Work Phone: [facility] 12-19-2023 13:31-0400 Systolic blood pressure 122 mm[Hg] Aurelio Alexis MD Work Phone: [facility] 12-19-2023 13:03-0400 Body height 167 cm Aurelio Alexis MD Work Phone: [facility] 12-19-2023 13:03-0400 Body mass index (BMI) [Ratio] 26.72 kg/m2 Aurelio Alexis MD Work Phone: [facility] 12-19-2023 13:03-0400 Body temperature 98.4 [degF] Aurelio Alexis MD Work Phone: [facility] 12-19-2023 13:03-0400 Body weight 74.53 kg Aurelio Alexis MD Work Phone: [facility] 12-19-2023 13:03-0400 Heart rate 84 /min Aurelio Alexis MD Work Phone: [facility] 12-19-2023 13:03-0400 SaO2% (BldA) [Mass fraction] 99 % Aurelio Alexis MD Work Phone: [facility] 10-06-2023 07:47-0400 Body height 167.6 cm Kelsie Oconnell [employer]RAFTER MECH[employer] DESK COORDINATOR Work Phone: [facility] 10-06-2023 07:47-0400 Body temperature 97.81 [degF] Kelsie Oconnell [employer]RAFTER MECH[employer]ICAL[employer] DESK COORDINATOR Work Phone: [facility] 10-06-2023 07:47-0400 Body weight 73.48 kg Kelsie Oconnell [employer]RAFTER MECH[employer]ICAL[employer] DESK COORDINATOR Work Phone: [facility] 10-06-2023 07:47-0400 Diastolic blood pressure 70 mm[Hg] Kelsie Oconnell DRAFTER MECHANICAL.FRONT DESK COORDINATOR Work Phone: [facility] 10-06-2023 07:47-0400 Heart rate 84 /min Kelsie Oconnell DRAFTER MECH[employer]ICAL.FR[employer] DESK COORDINATOR Work Phone: [facility] 10-06-2023 07:47-0400 Respiratory rate 12 /min Kelsie Oconnell DRAFTER MECHANICAL.FRONT DESK COORDINATOR Work Phone: [facility] 10-06-2023 07:47-0400 SaO2% (BldA) [Mass fraction] 100 % Kelsie Oconnell DRAFTER MECHANICAL.FRONT DESK COORDINATOR Work Phone: [facility] 10-06-2023 07:47-0400 Systolic blood pressure 132 mm[Hg] Kelsie Oconnell DRAFTER MECHANICAL.FR[employer] DESK COORDINATOR Work Phone: [facility] 09-29-2023 08:19-0400 Body weight 72.58 kg Kelsie Oconnell DRAFTER MECH[employer] DESK COORDINATOR Work Phone: [facility] 09-29-2023 08:19-0400 Diastolic blood pressure 84 mm[Hg] Kelsie Oconnell DRAFTER MECHANICAL.FRONT DESK COORDINATOR Work Phone: [facility] 09-29-2023 08:19-0400 Systolic blood pressure 122 mm[Hg] Kelsie Oconnell DRAFTER MECHANICAL.FRONT DESK COORDINATOR Work Phone: [facility] 09-05-2022 16:01-0400 Body height 167.6 cm Tati Herrera MD Work Phone: [facility] 09-05-2022 16:01-0400 Body temperature 97.59 [degF] Tati Herrera MD Work Phone: [facility] 09-05-2022 16:01-0400 Body weight 73.48 kg Tati Herrera MD Work Phone: [facility] 09-05-2022 16:01-0400 Diastolic blood pressure 82 mm[Hg] Tati Herrera MD Work Phone: [facility] 09-05-2022 16:01-0400 Heart rate 117 /min Tati Herrera MD Work Phone: [facility] 09-05-2022 16:01-0400 SaO2% (BldA) [Mass fraction] 99 % Tati Herrera MD Work Phone: [facility] 09-05-2022 16:01-0400 Systolic blood pressure 130 mm[Hg] Tati Herrera MD Work Phone: [facility] 04-18-2022 13:25-0400 Body height 170 cm Aurelio Talampas Other Phone: [facility] 04-18-2022 13:25-0400 Body temperature 97.88 [degF] Aurelio Talampas Other Phone: [facility] 04-18-2022 13:25-0400 Diastolic blood pressure 85 mm[Hg] Aurelio Talampas Other Phone: [facility] 04-18-2022 13:25-0400 Heart rate 81 /min Aurelio Talampas Other Phone: [facility] 04-18-2022 13:25-0400 SaO2% (BldA) [Mass fraction] 100 % Aurelio Talampas Other Phone: [facility] 04-18-2022 13:25-0400 Systolic blood pressure 154 mm[Hg] Aurelio Talampas Other Phone: [facility] 11-05-2021 10:02-0400 Body weight 73.94 kg Lyssa Emery MD Work Phone: [facility] 11-05-2021 10:02-0400 Diastolic blood pressure 80 mm[Hg] Lyssa Emery MD Work Phone: [facility] 11-05-2021 10:02-0400 Systolic blood pressure 124 mm[Hg] Lyssa Emery MD Work Phone: [facility] 10-17-2021 17:48-0400 Body height 170 cm Aurelio Talampas Other Phone: [facility] 10-17-2021 17:48-0400 Body temperature 97.88 [degF] Aurelio Talampas Other Phone: [facility] 10-17-2021 17:48-0400 Diastolic blood pressure 92 mm[Hg] Aurelio Talampas Other Phone: [facility] 10-17-2021 17:48-0400 Heart rate 70 /min Aurelio Talampas Other Phone: [facility] 10-17-2021 17:48-0400 SaO2% (BldA) [Mass fraction] 100 % Aurelio Talampas Other Phone: [facility] 10-17-2021 17:48-0400 Systolic blood pressure 132 mm[Hg] Aurelio Talampas Other Phone: [facility] 09-24-2021 10:34-0400 Body height 170.2 cm Keshia Mingus PA-C Work Phone: [facility] 09-24-2021 10:34-0400 Body temperature 98.49 [degF] Keshia Oly PA-C Work Phone: [facility] 09-24-2021 10:34-0400 Body weight 72.12 kg Keshia Mingus PA-C Work Phone: [facility] 09-24-2021 10:34-0400 Diastolic blood pressure 87 mm[Hg] Keshia Oly PA-C Work Phone: [facility] 09-24-2021 10:34-0400 Heart rate 87 /min Keshia Oly PA-C Work Phone: [facility] 09-24-2021 10:34-0400 SaO2% (BldA) [Mass fraction] 97 % Keshia Oly PA-C Work Phone: [facility] 09-24-2021 10:34-0400 Systolic blood pressure 133 mm[Hg] Keshia Mingus PA-C Work Phone: [facility] 09-20-2021 13:00-0400 Body height 170.1 cm Aurelio Talampas Other Phone: [facility] 09-20-2021 13:00-0400 Body temperature 98.6 [degF] Aurelio Alexis Other Phone: [facility] 09-20-2021 13:00-0400 Diastolic blood pressure 89 mm[Hg] Aurelio Alexis Other Phone: [facility] 09-20-2021 13:00-0400 Heart rate 93 /min Aureliogaye Kelleynatalya Other Phone: [facility] 09-20-2021 13:00-0400 Respiratory rate 16 /min Aurelio Alexis Other Phone: [facility] 09-20-2021 13:00-0400 SaO2% (BldA) [Mass fraction] 100 % Aurelio Alexis Other Phone: [facility] [facility] 09-[facility]-2021 13:00-0400 Systolic blood pressure 149 mm[Hg] Aurelio Harshad Other Phone: [facility] Encounters Encounter Date Encounter Type Care Provider Facility Start: 12-21-2024 End: 12-21-2024 Patient encounter status Aurelio Alexis MD Work Phone: [facility] Work Phone: Start: 12-21-2024 End: 12-21-2024 Periodic preventive med est patient 40-64yrs Aurelio Alexis MD Work Phone: [facility] [place] Comment on above: Routine medical exam (Primary Dx); Anxiety; S/P laparoscopic cholecystectomy; Cyst of right ovary; Screening for depression Start: 12-21-2024 End: 12-21-2024 ambulatory AURELIO ALEXIS Facility:[facility] Start: 12-21-2024 Encounter for genera l adult medical examination without abnormal findings AURELIO ALEXIS [facility] Start: 11-23-2024 End: 12-24-2024 ambulatory Aurelio Alexis MD Work Phone: [facility] [place] Start: 09-13-2024 End: 09-13-2024 Refill Aurelio Alexis MD Work Phone: [facility] [place] Comment on above: Refill Request Start: 09-12-2024 End: 09-13-2024 ambulatory Kelsie Oconnell [employer]RAFTER [employer]CH[employer].FRONT DESK COORDINATOR Work Phone: [facility] [place] Comment on above: Renewal not on list Start: 07-29-2024 End: 07-29-2024 ambulatory Aurelio Kelleynatalya Facility:[facility] Start: 07-15-2024 End: 07-15-2024 ambulatory Aurelio D Allienatalya [place] Start: 07-15-2024 End: 07-16-2024 ambulatory Burke Farmer Murraymonroe Facility:[facility] Start: 12-19-2023 End: 12-19-2023 Patient encounter status Aurelio Alexis MD Work Phone: [facility] Work Phone: Start: 12-19-2023 End: 12-19-2023 Periodic preventive med est patient 40-64yrs Aurelio Alexis MD Work Phone: [facility] [place] Comment on above: Routine medical exam (Primary Dx); Anxiety; Breast cancer screening by mammogram; Dense breasts Start: 10-06-2023 End: 10-06-2023 Office outpatient visit 25 minutes Kelsie Oconnell DRAFTER MECH[employer].FRONT DESK COORDINATOR Work Phone: [facility] [place] Comment on above: Chest pain, unspecif ied type (Primary Dx); History of asthma; Palpitations Start: 09-29-2023 End: 09-29-2023 Office outpatient visit 25 minutes Kelsie Oconnell DRAFTER MECHANICAL.FRONT DESK COORDINATOR Work Phone: [facility] [place] Comment on above: Hemorrhoids, unspeci fied hemorrhoid type (Primary Dx); Atypical chest pain Start: 08-04-2023 Documentation procedure Mammog marely Coordinator [facility] Start: 08-04-2023 Letter encounter Mammography Coordinator [facility] Department Start: 08-04-2023 End: 08-04-2023 Subsequent hospital visit by physician Screen Mammo [facility] Mammogram Comment on above: Encounter for screen ing mammogram for breast cancer [Z12.31] Start: 11-07-2022 Telephone encounter Tati Archibald MD Work Phone: General Surgery Comment on above: Patient Question Start: 09-05-2022 End: 09-05-2022 Patient encounter procedure Tati Herrera MD Work Phone: General Surgery Comment on above: Grade III internal h emorrhoids; External hemorrhoid Start: 09-04-2022 Telephone encounter Tati Archibald MD Work Phone: General Surgery Comment on above: Patient Question Start: 04-18-2022 End: 04-18-2022 Emergency department patient visit Dede Boshc [facility] Start: 02-02-2022 Refill Aurelio hollins MD Work Phone: [facility] [place] Comment on above: Refill Request Start: 11-26-2021 Refill Aurelio hollins MD Work Phone: [facility] [place] Comment on above: Refill Request Start: 11-07-2021 Telephone encounter Lyssa Emery MD Work Phone: OB/Gynecology Comment on above: Results Start: 11-05-2021 End: 11-05-2021 Patient encounter procedure Lyssa Emery MD Work Phone: OB/Gynecology Comment on above: Encounter for screen ing mammogram for malignant neoplasm of breast (Primary Dx); Dysuria; Vaginal irritation Start: 10-17-2021 End: 10-17-2021 Emergency department patient visit Lolis Ornelastz [facility] Start: 09-27-2021 Documentation procedure Mammog marely Coordinator [facility] Start: 09-27-2021 Letter encounter Mammography Coordinator [facility] Department Start: 09-27-2021 End: 09-27-2021 Subsequent hospital visit by physician Screen Mammo [facility] Mammogram Comment on above: Encounter for screen ing mammogram for malignant neoplasm of breast [Z12.31] Start: 09-24-2021 End: 09-24-2021 Patient encounter procedure Keshia Aldridge PA-C Work Phone: General Surgery Comment on above: Tubular adenoma (Yajaira almonte Dx); Internal and external hemorrhoids without complication Start: 09-20-2021 End: 09-20-2021 Emergency department patient visit Lolis Guerrero [facility] Start: 03-14-2011 End: 01-25-2014 Patient encounter status Aurelio Alexis MD Work Phone: [facility] Procedures Date Procedure Procedure Detail Performing Clinician Start: 12-21-2024 Adult depression screening assessment Aurelio Alexis MD Work Phone: Start: 12-19-2023 Adult depression screening assessment Aurelio Alexis MD Work Phone: Start: 10-06-2023 Ecg routine ecg w/least 12 lds i&r only [facility] Provider Start: 08-04-2023 Screening digital breast tomosynthesis bi Bulk Order Provider Start: 11-05-2021 Urnls dip stick/tablet rgnt auto w/o microscopy Lyssa Emery MD Work Phone: Start: 09-27-2021 NOMAN SCREENING W [facility] Lyssa Emery MD Work Phone: Start: 09-27-2021 Mammography Screen [facility] Start: 08-15-2021 Colonoscopy Lyssa Emery MD Work Phone: Start: 01-04-2021 Adult depression screening assessment Screen [facility] History of cholecystectomy S/P laparoscopic cholecystectomy Aurelio Alexis MD Work Phone: Plan of Treatment Date Care Activity Detail Author Start: 05-28-2031 Urine microalbumin profile [facility] Start: 08-15-2026 Colonoscopy COLONOSCOPY [facility] Start: 08-15-2026 COLORECTAL CANCER SCREENING COLORECTAL CANCER SCREENING [facility] Start: 08-15-2026 Screening for malign ant neoplasm of colon [facility] Start: 2026 FECAL OCCULT BLOOD FECAL OCCULT BLOO D [facility] Start: 2026 Screening for malign ant neoplasm of colon Fecal Occult Blood [facility] Start: 12-28-2025 End: 12-28-2025 Patient encounter procedure 12/28/2025 8:40 AM EDT Office Visit [facility] [place] [address] [place] [address] Aurelio Alexis MD [address] [place], [place] [id number] Yearly exam [facility] [place] Comment on above: Yearly exam Start: 12-21-2025 Depression Screening Depression Scre [facility] Start: 12-21-2025 Hepatitis B Vaccine (1 of 3 - 19+ 3-dose series) Hepatitis B Vaccine (1 of 3 - 19+ 3-dose series) [facility] Comment on above: Postponed from 01/17 (Declined at this time) Start: 02-14-2025 Influenza vaccination Influenza Vacc ine (#1) [facility] Start: 12-21-2024 End: 12-21-2024 Patient encounter procedure 12/21/2024 1:20 PM EDT Office Visit [facility] [place] [address] [place] [address] Aurelio Alexis MD [address] [place] [address] Yearly Exam [facility] [place] Comment on above: Yearly Exam Start: 12-18-2024 Depression Screening Depression Scre [facility] Start: 12-18-2024 Hepatitis B Vaccine (1 of 3 - 19+ 3-dose series) Hepatitis B Vaccine (1 of 3 - 19+ 3-dose series) [facility] Comment on above: Postponed from 01/17 (Declined at this time) Start: 11-09-2024 HPV TESTING HPV TESTING [facility] Start: 11-09-2024 PAP TESTING PAP TESTING [facility] Start: 11-09-2024 Screening for malign ant neoplasm of cervix [facility] Start: 08-04-2024 Screening for malign ant neoplasm of breast Mammogram Screening [facility] Start: 02-15-2024 Influenza vaccination C [facility] Start: 11-05-2023 HEPATITIS B (1 of 3 - 3-dose series) HEPATITIS B (1 of 3 - 3-dose series) [facility] Comment on above: Postponed from 01/17 (Declined at this time) Start: 11-05-2023 Hepatitis B Vaccine (1 of 3 - 19+ 3-dose series) Hepatitis B Vaccine (1 of 3 - 19+ 3-dose series) [facility] Comment on above: Postponed from 01/17 (Declined at this time) Start: 11-05-2023 Hepatitis B Vaccine (1 of 3 - 3-dose series) Hepatitis B Vaccine (1 of 3 - 3-dose series) [facility] Comment on above: Postponed from 01/17 (Declined at this time) Start: 10-06-2023 End: 01-05-2024 CBC W Auto Differential panel - Blood [facility] Work Phone: Comment on above: Expected: 10/06/2023 , Expires: 01/05/2024 Start: 10-06-2023 End: 01-05-2024 Comprehensive metabolic 2000 panel - Serum or Plasma [facility] Work Phone: Comment on above: Expected: 10/06/2023 , Expires: 01/05/2024 Start: 10-06-2023 End: 01-05-2024 Lipid 1996 panel - Serum or Plasma LIPID PANEL BASIC Lab Routine Chest pain, unspecified type Expected: 10/06/2023, Expires: 01/05/2024 [facility] Work Phone: Comment on above: Expected: 10/06/2023 , Expires: 01/05/2024 Start: 10-06-2023 End: 01-05-2024 LIPID PANEL, NONFASTING [facility] Work Phone: Comment on above: Expected: 10/06/2023 , Expires: 01/05/2024 Start: 10-06-2023 End: 01-05-2024 Thyrotropin [Units/volume] in Serum or Plasma [facility] Work Phone: Comment on above: Expected: 10/06/2023 , Expires: 01/05/2024 Start: 06-16-2023 Behavioral Health Screening Behavioral Health Screening [facility] Start: 06-16-2023 Depression Assessment Depression Ass [facility] Start: 06-15-2023 DEPRESSION ASSESSMENT DEPRESSION ASS [facility] Comment on above: Postponed from 06/16 (Declined at this time) Start: 02-14-2023 Covid-19 Vaccine () Covid-19 Vaccine () [facility] Start: 02-14-2023 Influenza vaccination Influenza Vacc ine (#1) [facility] Start: 09-27-2022 Mammography MAMMOGRAM [facility] Start: 06-16-2022 DEPRESSION ASSESSMENT DEPRESSION ASS ESSMENT [facility] Start: 02-14-2022 Influenza vaccination INFLUENZA (#1) [facility] Start: 01-04-2022 Adult depression screening assessment DEPRESSION SCREENING [facility] Start: 08-05-2021 COVID-19 VACCINE (4 - Booster for Pfizer series) COVID-19 VACCINE (4 - Booster for Pfizer series) [facility] Start: 1981 HEPATITIS B (1 of 3 - 3-dose series) HEPATITIS B (1 of 3 - 3-dose series) [facility] Bacteria identified in Urine by Culture URINE CULTURE Microbiology Routine Dysuria 11/05/2021 10:33 AM EDT [facility] Work Phone: BACTERIAL VAGINOSIS AMPLIFICATION BACTERIAL VAGINOSIS AMPLIFICATION Lab Routine Vaginal irritation 11/05/2021 10:33 AM EDT [facility] Work Phone: End: 2025 DBT Breast - bilateral screening NOMAN SCREENING [facility] Radiology Routine Breast cancer screening by mammogram Dense breasts 1 Occurrences starting 12/19/2023 until 2025 [facility] Work Phone: Comment on above: 1 Occurrences starti ng 12/19/2023 until 2025 End: 12-23-2025 DBT Breast - bilateral screening NOMAN SCREENING [facility] Radiology Routine Encounter for screening mammogram for breast cancer 1 Occurrences starting 11/23/2024 until 12/23/2025 [facility] Work Phone: Comment on above: 1 Occurrences starti ng 11/23/2024 until 12/23/2025 ECG COMPLETE [facility] Work Phone: Comment on above: Ordered: 10/06/2023 End: 12-05-2022 NOMAN SCREENING W LUIS NOMAN SCREENING W [facility] Radiology Routine Encounter for screening mammogram for malignant neoplasm of breast 1 Occurrences starting 11/05/2021 until 12/05/2022 [facility] Work Phone: Comment on above: 1 Occurrences starti ng 11/05/2021 until 12/05/2022 End: 11-04-2024 SPIROMETRY WITH DILATOR IF OBSTRUCTED SPIROMETRY WITH DILATOR IF OBSTRUCTED PFT Routine History of asthma 1 Occurrences starting 10/06/2023 until 11/04/2024 [facility] Work Phone: Comment on above: 1 Occurrences starti ng 10/06/2023 until 11/04/2024 End: 10-05-2024 STRESS ECHO TREADMILL STRESS ECHO TREADMILL Cardiology Routine Chest pain, unspecified type 1 Occurrences starting 10/06/2023 until 10/05/2024 [facility] Work Phone: Comment on above: 1 Occurrences starti ng 10/06/2023 until 10/05/2024 [facility] Immunizations Immunization Date Immunization Notes Care Provider [facility] 06-06-2022 Influenza, injectabl e, Madin Putnam Canine Kidney, preservative free, quadrivalent Tati Herrera MD Work Phone: [facility] 06-06-2022 influenza virus vacc ine, unspecified formulation Screen [facility] 06-10-2021 COVID-19 original vaccine, full dose, monovalent (MODERNA) Tati Herrera MD Work Phone: [facility] 05-28-2021 influenza, injectabl e, quadrivalent, contains preservative Screen [facility] 05-28-2021 tetanus toxoid, redu alayna diphtheria toxoid, and acellular pertussis vaccine, adsorbed Screen [facility] 08-24-2020 COVID-19 vaccine, ag e 12+ yr (PFIZER-BIONTECH - PURPLE TOP) Screen [facility] 08-04-2020 COVID-19 vaccine, ag e 12+ yr ([employer]-BIONTECH - PURPLE TOP) Screen [facility] Payers Date Payer Category Payer Self-pay 2022 Private Health Insurance [id number] 2022 Private Health Insurance [id number] 2017 Unknown 2017 Unknown [employer] [id number] 2017-Present [phone] [address] [place] [address] PPO [id number] 1981 Unknown [id number] 1981 Unknown [id number] 1981 Unknown [id number] Unknown [id number] Unknown [id number] Unknown [id number] Unknown [id number] Unknown [id number] Unknown [id number] Social History Date Type Detail Facility [facility] Tobacco smoking consumption unknown [facility] Start: 11-02-2010 End: 09-05-2022 Tobacco smoking status NHIS Never smoked tobacco [facility] Work Phone: Start: 11-02-2010 End: 09-05-2022 Tobacco use and exposure Smokeless tobacco non-user [facility] Work Phone: Start: 09-24-2021 End: 12-21-2024 Alcohol intake Current drinker of alcohol (finding) [facility] Start: 09-24-2021 End: 11-04-2022 Alcohol intake [facility] Work Phone: Start: 2020 History SDOH Alcohol Frequency 5 [facility] Start: 2020 History SDOH Alcohol Std Drinks 1 [facility] Start: 08-15-2021 History SDOH Alcohol Comment states approx 8 drinks per week [facility] Start: 1980 Sex Assigned At Not on file [facility] Start: 09-17-2021 End: 09-27-2021 Exposure to SARS-CoV-2 (event) Not sure [facility] Start: 2020 End: 11-04-2022 Alcohol Use Disorder Identification Test - Consumption [AUDIT-C] [facility] Work Phone: How often to you hav e a drink containing alcohol? 4 or more times a week [facility] Work Phone: How many standard dr inks containing alcohol do you have on a typical day? 1 or 2 [facility] Work Phone: How often do you hav e 6 or more drinks on 1 occasion? Never [facility] Work Phone: National Score (1-10 0), lower number is lower risk 60 [facility] Functional Status Date Assessment Result Facility 07-28-2014 Are you deaf, or do you have serious difficulty hearing No 07/28/2014 4:14 PM Leola Salazar Cma No [facility] 07-28-2014 Are you blind, or do you have serious difficulty seeing, even when wearing glasses No 07/28/2014 4:14 PM Leola Salazar Cma No [facility] 07-28-2014 Do you have serious difficulty walking or climbing stairs No 07/28/2014 4:14 PM Leola Salazar Cma No [facility] 07-28-2014 Do you have difficul ty dressing or bathing No 07/28/2014 4:14 PM Leola Salazar Cma No [facility] 07-28-2014 Because of a physica l, mental, or emotional condition, do you have difficulty doing errands alone such as visiting a physician's office or shopping No 07/28/2014 4:14 PM FERNANDO Terry AcostaLeola No [facility] Mental Status Date Assessment Result Facility 07-28-2014 Because of a physica l, mental, or emotional condition, do you have serious difficulty concentrating, remembering, or making decisions No 07/28/2014 4:14 PM FERNANDO Stewart CmaLeola No [facility] Clinical Notes 01-20-2014 to 12-21-2024 Patient InstructionsAurelio Alexis MD - 12/21/2024 1:26 PM EDTTelephone Encounter - Steffi Wesley LPN - 09/13/2024 7:57 AM EDTTelephone Encounter - Steffi Wesley LPN - 09/13/2024 7:57 AM EDT Note Date & Type Note Facility 12-21-2024 Instructions Aurelio Alexis MD - 12/21/2024 1:54 PM EDT - A refill for your lorazepam (14 pills, same dose as before) has been sent to your [facility] pharmacy. - Schedule your annual mammogram at your convenience--your order is valid until next year. - Arrange a Pap?+?HPV test with Dr. Emery s office; since your last results were negative, testing is due every 5 years. - Check your immunization records for prior hepatitis B vaccines; if you haven t had it , consider getting. - After gallbladder removal, continue to limit fried and high-fat foods. If you develop persistent loose stools or diarrhea despite diet changes, start Metamucil or discuss bile-acid binding medications. For bile reflux symptoms, ask about Carafate or similar treatments to coat and protect your stomach and esophagus. - For weight management, aim for at least 120 minutes any exercise over at least 5 days per week and ideal goal of moderate aerobic exercise 30 minutes a day for 5 days each week. Continue daily walks, focus on a balanced diet rich in fruits, vegetables, and lean protein, and increase movement during your workday. documented in this encounter [facility] 12-21-2024 Note HNO ID: [id number] Author: AURELIO ALEXIS MD Service: ? Author Type: Physician Type: Progress Notes Filed: 01/13/2025 23:40 Note Text: This note was created using [employer]. Subjective Kate Mckeon is a 44 year old female. HISTORY Kate Mckeon is a 44 year old lady here for yearly exam and follow up appointment. Kate Mckeon is a 44-year-old female presenting for an annual wellness visit. Kate reports overall well-being and is not currently taking a significant number of medications. She has an albuterol inhaler prescribed in September of last year, which she uses as needed. She also takes [id number] Claritin, magnesium, and a vitamin. She requests a refill of lorazepam, noting that a previous prescription of 14 pills lasted her an entire year. She denies any changes in family medical history, and reports that her siblings and father do not have any known medical issues. She denies tobacco, alcohol, or drug use. She denies feelings of depression or hopelessness, and reports only normal stress levels. Kate underwent a laparoscopic cholecystectomy in June following an acute episode of emesis and abdominal pain. During imaging for this procedure, a nodule was noted on the right ovary, and she inquires about the need for follow-up. She has made dietary changes post-surgery and denies any current issues related to the cholecystectomy. 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 She expresses a goal to lose 15-20 lbs and plans to increase her physical activity once her classes are completed in 7 weeks. She previously maintained a lower weight through regular walking and increased activity in her previous job. 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 loratadine (CLARITIN ORAL) Take by mouth. prn Magnesium 250 mg tab Take 250 mg by mouth once daily. VIT #108-IRON-FA ORAL Take by mouth. LORazepam (ATIVAN) 0.5 mg Take 0.5-1 tablets by mouth two times a day as needed for up to 7 days. No current facility-administered medications for this visit. ALLERGIES Allergen Reactions Seasonal Allergies Other: See Comments FAMILY HISTORY Problem Relation Age of Onset Arthritis Mother in thumb Hypertension Mother Headache Mother No Known Problems Father No Known Problems Sister No Known Problems Brother No Known Problems Brother Coronary Artery Disease Maternal Grandmother Colon Cancer Paternal Grandmother Ovarian cancer Paternal Grandmother Heart Paternal Grandfather chf Social History Tobacco Use Smoking status: Never Smokeless tobacco: Never Vaping Use Vaping status: Never Used Substance Use Topics Alcohol use: Yes Alcohol/week: 16.1 standard drinks of alcohol Types: 7 Cans of Beer (12oz), 7 Mixed Drinks per week Comment: states approx 8 drinks per week Drug use: No Review of Systems Objective BP 121/83 Pulse 79 Resp 16 Ht 170.5 cm (5' 7.13) Wt 76.4 kg (168 lb 6.9 oz) LMP 12/19/2023 (Exact Date) BMI 26.28 kg/m? Last 5 Encounter Wt Readings: Date: Wt: 12/21/2024 76.4 kg (168 lb 6.9 oz) 12/19/2023 74.5 kg (164 lb 4.8 oz) 10/06/2023 73.5 kg (162 lb) 09/29/2023 72.6 kg (160 lb) 11/04/2022 73.5 kg (162 lb) No waist measurement recorded Estimated body mass index is 26.28 kg/m? as calculated from the following: Height as of this encounter: 170.5 cm (5' 7.13). Weight as of this encounter: 76.4 kg (168 lb 6.9 oz). Last 5 Encounter BP Readings: Date: BP: 12/21/2024 121/83 12/19/2023 122/72 10/06/2023 132/70 09/29/2023 122/84 11/04/2022 122/82 Physical Exam Vitals reviewed. Constitutional: Appearance: Normal appearance. She is well-developed. HENT: Head: Normocephalic and atraumatic. Right Ear: Tympanic membrane, ear canal and external ear normal. Left Ear: Tympanic membrane, ear canal and external ear normal. Nose: Nose normal. Mouth/Throat: Mouth: Mucous membranes are moist. Eyes: Conjunctiva/sclera: Conjunctivae normal. Pupils: Pupils are equal, round, and reactive to light. Neck: Thyroid: No thyromegaly. Vascular: No carotid bruit. Cardiovascular: Rate and Rhythm: Normal rate and regular rhythm. Pulses: Normal pulses. Heart sounds: Normal heart sounds. No murmur heard. No friction rub. No gallop. Pulmonary: Effort: Pulmonary effort is normal. Breath sounds: Normal breath sounds. Abdominal: General: Bowel sounds are normal. There is no distension. Palpations: Abdome (more content not included)... [facility] 12-21-2024 History of Presen t illness Narrative This note was created using [employer]. Subjective Kate Mckeon is a 44 year old female. HISTORY Kate Mckeon is a 44 year old lady here for yearly exam and follow up appointment. Kate Mckeon is a 44-year-old female presenting for an annual wellness visit. Kate reports overall well-being and is not currently taking a significant number of medications. She has an albuterol inhaler prescribed in September of last year, which she uses as needed. She also takes [id number] Claritin, magnesium, and a vitamin. She requests a refill of lorazepam, noting that a previous prescription of 14 pills lasted her an entire year. She denies any changes in family medical history, and reports that her siblings and father do not have any known medical issues. She denies tobacco, alcohol, or drug use. She denies feelings of depression or hopelessness, and reports only normal stress levels. Kate underwent a laparoscopic cholecystectomy in June following an acute episode of emesis and abdominal pain. During imaging for this procedure, a nodule was noted on the right ovary, and she inquires about the need for follow-up. She has made dietary changes post-surgery and denies any current issues related to the cholecystectomy. 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 She expresses a goal to lose 15-20 lbs and plans to increase her physical activity once her classes are completed in 7 weeks. She previously maintained a lower weight through regular walking and increased activity in her previous job. 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 loratadine (CLARITIN ORAL) Take by mouth. prn Magnesium 250 mg tab Take 250 mg by mouth once daily. VIT #108-IRON-FA ORAL Take by mouth. LORazepam (ATIVAN) 0.5 mg Take 0.5-1 tablets by mouth two times a day as needed for up to 7 days. No current facility-administered medications for this visit. ALLERGIES Allergen Reactions Seasonal Allergies Other: See Comments FAMILY HISTORY Problem Relation Age of Onset Arthritis Mother in thumb Hypertension Mother Headache Mother No Known Problems Father No Known Problems Sister No Known Problems Brother No Known Problems Brother Coronary Artery Disease Maternal Grandmother Colon Cancer Paternal Grandmother Ovarian cancer Paternal Grandmother Heart Paternal Grandfather chf Social History Tobacco Use Smoking status: Never Smokeless tobacco: Never Vaping Use Vaping status: Never Used Substance Use Topics Alcohol use: Yes Alcohol/week: 16.1 standard drinks of alcohol Types: 7 Cans of Beer (12oz), 7 Mixed Drinks per week Comment: states approx 8 drinks per week Drug use: No Review of Systems Objective BP 121/83 Pulse 79 Resp 16 Ht 170.5 cm (5' 7.13) Wt 76.4 kg (168 lb 6.9 oz) LMP 12/19/2023 (Exact Date) BMI 26.28 kg/m Last 5 Encounter Wt Readings: Date: Wt: 12/21/2024 76.4 kg (168 lb 6.9 oz) 12/19/2023 74.5 kg (164 lb 4.8 oz) 10/06/2023 73.5 kg (162 lb) 09/29/2023 72.6 kg (160 lb) 11/04/2022 73.5 kg (162 lb) No waist measurement recorded Estimated body mass index is 26.28 kg/m as calculated from the following: Height as of this encounter: 170.5 cm (5' 7.13). Weight as of this encounter: 76.4 kg (168 lb 6.9 oz). Last 5 Encounter BP Readings: Date: BP: 12/21/2024 121/83 12/19/2023 122/72 10/06/2023 132/70 09/29/2023 122/84 11/04/2022 122/82 Physical Exam Vitals reviewed. Constitutional: Appearance: Normal appearance. She is well-developed. HENT: Head: Normocephalic and atraumatic. Right Ear: Tympanic membrane, ear canal and external ear normal. Left Ear: Tympanic membrane, ear canal and external ear normal. Nose: Nose normal. Mouth/Throat: Mouth: Mucous membranes are moist. Eyes: Conjunctiva/sclera: Conjunctivae normal. Pupils: Pupils are equal, round, and reactive to light. Neck: Thyroid: No thyromegaly. Vascular: No carotid bruit. Cardiovascular: Rate and Rhythm: Normal rate and regular rhythm. Pulses: Normal pulses. Heart sounds: Normal heart sounds. No murmur heard. No friction rub. No gallop. Pulmonary: Effort: Pulmonary effort is normal. Breath sounds: Normal breath sounds. Abdominal: General: Bowel sounds are normal. There is no distension. Palpations: Abdomen is soft. There is no mass. Tenderness: There is no abdominal tenderness. Musculoskeletal: General: No deformity. Normal range of motion. Right lower leg: No edema. Left lower leg: No edema. Lymphadenopathy: Cervical: No cervical adenopathy. Skin: General: Skin is warm and dry. Coloration: Skin is not jaundiced or pale. Findings: No rash. Neurological: General: No focal deficit present. Mental Status: She is alert and oriented to person, place, and time. Cranial Nerves: No cranial nerve deficit. Sensory: No sensory deficit. Motor: No abnormal muscle tone. Coordination: Coordination normal. Deep Tendon Reflexes: Reflexes normal. Psychiatric: Attention and Perception: Attention and perception normal. Mood and Affect: Mood and affect normal. Speech: Speech normal. Behavior: Behavior normal. Thought Content: Thought content normal. Cognition and Memory: Cognition and memory normal. Judgment: Judgment normal. Assessment and Plan # Routine medical exam (Z00.00) - Blood pressure readings consistently in the 120s/70s. - Last mammogram in July of last year; order for next mammogram is in the system and valid for the next year. - Last Pap test in [address] Emery; advised patient to schedule follow-up. - Discussed potential need for Hepatitis B vaccination; patient to check vaccination records. - Encouraged gradual weight loss through increased physical activity and healthy diet; goal of 120-150 minutes of aerobic exercise per week. # Anxiety (F41.9) - Refilled lorazepam prescription, 14 pills, sent to [facility]. # S/P laparoscopic cholecystectomy (Z90.49) - Educated on dietary modifications to manage post-cholecystectomy symptoms. - Discussed potential use of Metamucil or bile acid sequestrants if dietary changes are insufficient. - Advised on signs of bile reflux and potential treatment with Carafate if necessary. # Cyst of right ovary (N83.201)--presumed since nodule on right and fluid in cul de sac noted - CT scan from June showed an irregular enhancing nodule in the right ovary and a small amount of free fluid in the pelvis. - No ultrasound found in records; will send a note to Dr. Emery to consider ordering an ultrasound before the patient's next appointment. # Screening for depression (Z13.31) - Negative for depression; no feelings of being down, depressed, or hopeless reported. Aurelio Alexis MD Recording using [employer] software for draft documentation of the visit was discussed with the patient/authorized field sales representative; all questions welcomed and answered. Patient/authorized field sales representative agreed to proceed documented in this encounter [facility] 11-23-2024 Note Patient Outreach (IN TMWS) KATE MCKEON ([id number]) 1980 F Date Time Provider Department 11/23/24 AURELIO ALEXIS INTMWS During your visit today, we recorded the following information about you: Allergies As of Date: 11/23/2024 Noted Allergy Reaction SEASONAL ALLERGIES 01/04/2021 14 - Other: See Comments Date Reviewed: 12/19/2023 Reviewed by: Vandana Noel LPN - Fully Assessed Visit Diagnosis:Encounter for screening mammogram for breast cancer [Z12.31] Order(s):NOMAN SCREENING W LUIS [[id number]] Order #: [id number] FUTURE Prescriptions as of 12/24/2024 - LORazepam (ATIVAN) 0.5 mg Take 0.5-1 tablets by mouth two times a day as needed for up to 7 days. - albuterol HFA (PROVENTIL HFA, VENTOLIN HFA) 90 mcg/actuation inhaler Inhale 2 Puffs as instructed every 4 hours as needed for wheezing/shortness of breath. - loratadine (CLARITIN ORAL) Take by mouth. prn - Magnesium 250 mg tab Take 250 mg by mouth once daily. - VIT #108-IRON-FA ORAL Take by mouth. Problem List As Of Date 11/23/2024 Noted Resolved Adjustment disorder with anxious mood [F43.22] 11/20/2010 Panic disorder with agoraphobia [F40.01] 11/20/2010 Routine medical exam [Z00.00] 03/14/2011 01/25/2014 Fibroid, uterine [D25.9] 01/29/2012 Bicornuate uterus [Q51.3] 03/05/2012 Threatened [O20.0] 01/20/2014 01/25/2014 Polyp of cervix uteri [N84.1] 07/27/2015 Panic attack [F41.0] 2020 Adjustment disorder with mixed anxiety and depr*2020 Encounter Status:Closed by AYANNA BOLAND on 12/24/24 [facility] 09-13-2024 Telephone encounter Note Prescription Refill Information The patient has been identified by name and date of : Yes Caregiver verified no other encounters exist for this prescription request: Yes Caregiver confirmed with patient/requestor that no other refills are due, in the near future, with this provider at this time: Yes The last office visit in the department: 12/19/23 Does the patient have a future office visit with this provider/department: Yes 12/21/24 Requested Prescriptions Pending Prescriptions Disp Refills hydrocortisone (ANUSOL-HC) 25 mg suppository 14 Suppository 1 Si Suppository by RECTAL route two times a day as needed for up to 7 days. Steffi Wesley LPN September 13, 2024 7:58 AM [facility] 09-13-2024 Miscellaneous Notes Prescription Refill Information The patient has been identified by name and date of : Yes Caregiver verified no other encounters exist for this prescription request: Yes Caregiver confirmed with patient/requestor that no other refills are due, in the near future, with this provider at this time: Yes The last office visit in the department: 12/19/23 Does the patient have a future office visit with this provider/department: Yes 12/21/24 Requested Prescriptions Pending Prescriptions Disp Refills hydrocortisone (ANUSOL-HC) 25 mg suppository 14 Suppository 1 Si Suppository by RECTAL route two times a day as needed for up to 7 days. Steffi Wesley LPN September 13, 2024 7:58 AM documented in this encounter [facility] 07-16-2024 Note [facility] Medical Records Department [address] [place] [id number] Discharge Summary 07/16/24 0831 MR#: [id number] Acct: [id number] Name: KATE MCKEON Rep #: [id number] : 1980 44 From: Burke Hurtado MD PCP: Dr. Aurelio Alexis MD Status:ADM LB Location: [address] Providers Date of Admission: 07/15/24 Date of Discharge: 07/16/24 Primary Care Physician: Dr. Aurelio Alexis MD None Reason For Visit: CHOLELITHIASIS Diagnosis Discharge Diagnosis (1) Symptomatic cholelithiasis: Status: Acute Code(s): K80.20 - Calculus of gallbladder without cholecystitis without obstruction Plan Patient is a 44-year-old female status post a successful laparoscopic cholecystectomy for acute cholecystitis/cholelithiasis. She is doing well postoperatively on day 1. I feel that she is okay for discharge. She would like to go home. Home-going instructions were discussed with her again. Recommend follow-up in 2 weeks. She may certainly call if any questions or concerns arise Medications at Discharge Home Medications albuterol sulfate 90 mcg/actuation aerosol inhaler 2 puff inhalation Q4H PRN PRN shortness of breath or wheezing 07/15/24 loratadine 10 mg tablet (Allerclear) 10 mg PO DAILY 07/15/24 lorazepam 0.5 mg tablet 0.25 - 0.5 mg PO BID PRN PRN anxiety 07/15/24 oxycodone-acetaminophen 5 mg-325 mg tablet (Percocet) 1 tab PO Q8H PRN pain 3 days #10 tabs 07/16/24 Hospital Course Operations cholecystecomy Procedures None Summary of Care Provided Minutes Spent on Discharge: 15 Hospital Course: The patient is a 44-year-old female who presented to the [facility] emergency department on the day of admission with complaints of epigastric and right upper quadrant pain. She was seen evaluate by the ER staff. She was found to have a white blood cell count of 16,000. She had persistent pain. All the rest of her labs were fairly unremarkable. Due to her white blood cell count and pain, the decision was made to admit the patient and plan for a laparoscopic cholecystectomy with cholangiograms. This was performed on the date of admission. She tolerated the surgery well. There were no complications or issues. The morning after surgery she states that she is doing well albeit sore at the incisions. She would like to be discharged to home. I think this is appropriate. Home-going instructions were discussed with her. Physical Exam Narrative She is alert and oriented x 3. She is in no acute distress. Abdomen is soft and appropriately tender. Weight / BMI Weight Weight: 166 lb 14.239 oz Body Mass Index (BMI) 26.1 ABG / Lab / Microbiology Data 07/16/24 05:16 07/16/24 05:16 Laboratory: Laboratory Results - last 24 hr 07/16/24 05:16: WBC 15.5 H, RBC 4.08 L, Hgb 12.4, Hct 36.8 L, MCV 90.2, MCH 30.4, MCHC 33.7, RDW Std Deviation 38.4, RDW Coeff of [place] 11.6, Plt Count 283, MPV 11.6, Immature Gran % (Auto) 0.500, Neut % (Auto) 85.4 H, Lymph % (Auto) 8.5 L, Marathon % (Auto) 5.4, Eos % (Auto) 0.0, Baso % (Auto) 0.2, A bsolute Neuts (auto) 13.2 H, Absolute Lymphs (auto) 1.31, Nucleated RBC % 0, Sodium 138, Potassium 3.5, Chloride 107, Carbon Dioxide 27.0, Anion Gap 4 L, BUN 9, Creatinine 0.67, Estim Creat Clear Calc 114.92, Est GFR (MDRD) Af Amer 124, Est GFR (MDRD) Non-Af 102, BUN/Creatinine Ratio 13.5, G lucose 108 H, Calcium 8.0 L, Total Bilirubin 0.60, AST 48 H, ALT 71 H, Alkaline Phosphatase 46, T otal Protein 6.0 L, Albumin 3.2, Globulin 2.8, Albumin/Globulin Ratio 1.1 Radiography Diagnostic Testing: Radiology Impression C-Arm Fluoroscopy 07/15/24 15:00 IMPRESSION: Intraoperative fluoroscopy was obtained, along with numerous cholestatic images during contrast injection to the cystic duct. No residual stone is seen within visualized areas. Reading Location: [id number] Cholangiogram 07/15/24 15:00 IMPRESSION: Intraoperative fluoroscopy was obtained, along with numerous cholestatic images during contrast injection to the cystic duct. No residual stone is seen within visualized areas. Reading Location: [id number] D/C Instructions Discharge Diet: Low fat / Low cholesterol Discharge Activity: Return to Normal Activity and May Shower May shower in (days): 1 Ice area for (Minutes): 30 Lifting Restrictions: Keep lifting under 20 pounds for about 3 to 4 weeks Call your doctor if your incision/area has: Continuous Slow Oozing, Sudden Increased Bleeding, Increased Pain/ Swelling, Increased Redness, Foul Smelling Discharge and Swelling at the incision site Call your doctor if you observe: Fever of 101 or Higher Remove Dressing in: leave until fall off (Skin glue will fall off in about (more content not included)... [facility] 07-15-2024 Note [facility] Medical Records Department [address] [place] [address] History Physical Exam 07/15/24 1117 MR#: [id number] Acct: [id number] Name: KATE MCKEON Rep #: [id number] : 1980 44 From: Burke Hurtado MD PCP: Dr. Aurelio Alexis MD Status:ADM LB Location: [place] [id number] HPI - General General Date of Admission: 07/15/24 Date of Service: 07/15/24 Chief Complaint: Epigastric abdominal pain HPI Narrative KATE MCKEON, is a 44 F who presented overnight to the [facility] emergency department with abdominal pain in the upper abdomen that started around midnight last night. She states that she had [employer] food for dinner around 430 or 5 PM. The pain started around midnight after she was asleep. This pain awoken her from sleep and was also associated with nausea and vomiting x 3. She states she is really never had similar pain. She denies diarrhea. No other sick contacts. She was seen and evaluated by the ER staff. She was found to have a white blood cell count of 16,000. The rest of her LFTs were unremarkable CT scan showed a distended gallbladder and some mild periportal edema. Subsequent gallbladder ultrasound performed this morning showed gallstones but no gallbladder wall thickening or pericholecystic fluid. Given her persistent pain and elevated white count, she was admitted for planned cholecystectomy. She was started on IV antibiotics. Has had no previous abdominal surgery. I saw the patient in the emergency department this morning. She states that her pain was much better than when she came in but is still present. She currently rated her pain at about a 2 out of 10. [facility] Medical History (Updated 07/15/24 @ 11:[address] Burke Hurtado MD) Symptomatic cholelithiasis Depression Anxiety Asthma Colon polyps Home Medications ???Medication ???Instructions ???Recorded ???Last Taken ???Type albuterol sulfate 90 mcg/actuation 2 puff inhalation Q4H PRN PRN Unknown History aerosol inhaler shortness of breath or wheezing loratadine 10 mg tablet 10 mg PO DAILY 07/15/24 Unknown Hi story (Allerclear) lorazepam 0.5 mg tablet 0.25 - 0.5 mg PO BID PRN PRN 07/15 Unknown History anxiety Allergy/AdvReac Type Severity Reaction Status Date / Time No Known Allergies Allergy Verified 07/15/24 03:09 no significant family history no surgical history Social History Smoking Status: Never smoker ROS Constitutional Constitutional: Reports systems reviewed and no addt'l complaints, except as documented Eyes Eyes: Reports systems reviewed and no addt'l complaints, except as documented ENT HEENT: Reports systems reviewed and no addt'l complaints, except as documented Cardiovascular Cardiovascular: Reports systems reviewed and no addt'l complaints, except as documented Respiratory/Chest Respiratory/Chest: Reports systems reviewed and no addt'l complaints, except as documented Gastrointestinal Gastrointestinal: Reports systems reviewed and no addt'l complaints, except as documented Vital Signs Vital Signs Vital Signs: 07/15/24 03:10 07/15/24 05:09 07/15/24 07:00 Temperature 98.1 F Temperature Source Oral Pulse Rate 71 79 79 Respiratory Rate 16 16 16 Blood Pressure 119/81 H 122/69 H 124/74 H Blood Pressure Mean 93 86 90 Pulse Ox 98 100 97 Oxygen Delivery Method Room Air Room Air Room Air 07/15/24 09:00 07/15/24 09:06 07/15/24 09:07 Temperature 98.1 F 98.1 F Temperature Source Oral Pulse Rate 82 82 82 Respiratory Rate 16 16 Blood Pressure 125/74 H 125/74 H 125/74 H Blood Pressure Mean 91 91 91 Pulse Ox 98 98 98 Oxygen Delivery Method Room Air 07/15/24 11:00 Temperature 98.9 F Temperature Source Oral Pulse Rate 81 Respiratory Rate 16 Blood Pressure 116/75 Blood Pressure Mean 88 Pulse Ox 98 Oxygen Delivery Method Room Air Weight Weight: 166 lb 14.239 oz Body Mass Index (BMI) 26.1 Physical Exam Narrative She is alert and oriented x 3. She is in no acute distress. Head is normocephalic and atraumatic. Pupils are equal round and reactive to light. Abdomen is soft and nondistended. She does have some mild epigastric and right upper quadrant tenderness to palpation. No rebound or guarding. Results Lab / Micro Data 07/15/24 03:39 07/15/24 03:39 Labs: Laboratory Results - last 24 hr 07/15/24 03:39: WBC 16.3 H, RBC 4.48, Hgb 13.9, Hct 39.9, MCV 89.1, MCH 31.0, MCHC 34.8, RDW Std Deviation 36.9, RDW Coeff of [place] 11.5 L, Plt Count 279, MPV 10.9, Immature Gran % (Auto) 0.600, Neut % (Auto) 89.9 H, Lymph % (Auto) 7.1 L, Marathon % (Auto) 1.8, Eos % (Auto) 0.2, Baso % (Auto) 0.4, A bsolute Neuts (auto) 14. (more content not included)... [facility] 12-19-2023 History of Presen t illness Narrative This note was created using [employer]. Subjective Kate Mckeno is a 43 year old female. HISTORY Kate Mckeon is a 43 year old lady here for yearly exam and follow up appointment. Reviewed last RX for lorazepam was 11/04/22 for 7 pills. Prior RX 02/04/22 for 20 pills. Most days just need half a pill no more than once in a day. 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 PAST MEDICAL HISTORY Diagnosis Date Adjustment disorder with anxious mood 11/20/2010 Asthma childhood Bicornuate uterus 03/05/2012 Joint pain, hip Panic disorder with agoraphobia 11/20/2010 Current Outpatient Medications Medication Sig albuterol HFA (PROVENTIL HFA, VENTOLIN HFA) 90 mcg/actuation inhaler Inhale 2 Puffs as instructed every 4 hours as needed for wheezing/shortness of breath. loratadine (CLARITIN ORAL) Take by mouth. prn Magnesium 250 mg tab Take 250 mg by mouth once daily. VIT #108-IRON-FA ORAL Take by mouth. No current facility-administered medications for this visit. ALLERGIES Allergen Reactions Seasonal Allergies Other: See Comments FAMILY HISTORY Problem Relation Age of Onset Arthritis Mother in thumb Hypertension Mother Headache Mother Coronary Artery Disease Maternal Grandmother Colon Cancer Paternal Grandmother Ovarian cancer Paternal Grandmother Heart Paternal Grandfather chf Social History Tobacco Use Smoking status: Never Smokeless tobacco: Never Vaping Use Vaping Use: Never used Substance Use Topics Alcohol use: Yes Alcohol/week: 16.1 standard drinks of alcohol Types: 7 Cans of Beer (12oz), 7 Mixed Drinks per week Comment: states approx 8 drinks per week Drug use: No Review of Systems Objective BP 132/82 Pulse 84 Temp 36.9 C (98.4 F) Ht 167 cm (5' 5.75) Wt 74.5 kg (164 lb 4.8 oz) LMP 12/19/2023 (Exact Date) SpO2 99% BMI 26.72 kg/m Last 5 Encounter Wt Readings: Date: Wt: 12/19/2023 74.5 kg (164 lb 4.8 oz) 10/06/2023 73.5 kg (162 lb) 09/29/2023 72.6 kg (160 lb) 11/04/2022 73.5 kg (162 lb) 09/05/2022 73.5 kg (162 lb) No waist measurement recorded Estimated body mass index is 26.72 kg/m as calculated from the following: Height as of this encounter: 167 cm (5' 5.75). Weight as of this encounter: 74.5 kg (164 lb 4.8 oz). Last 5 Encounter BP Readings: Date: BP: 12/19/2023 132/82 10/06/2023 132/70 09/29/2023 122/84 11/04/2022 122/82 09/05/2022 130/82 12/19/23 1303 12/19/23 1331 BP: 132/82 122/72 Pulse: 84 Temp: 36.9 C (98.4 F) SpO2: 99% Weight: 74.5 kg (164 lb 4.8 oz) Height: 167 cm (5' 5.75) Physical Exam Vitals reviewed. Constitutional: Appearance: She is well-developed. HENT: Head: Normocephalic and atraumatic. Right Ear: Tympanic membrane, ear canal and external ear normal. Left Ear: Tympanic membrane, ear canal and external ear normal. Nose: Nose normal. Eyes: Conjunctiva/sclera: Conjunctivae normal. Neck: Thyroid: No thyromegaly. Vascular: No carotid bruit. Cardiovascular: Rate and Rhythm: Normal rate and regular rhythm. Pulses: Normal pulses. Heart sounds: Normal heart sounds. No murmur heard. No friction rub. No gallop. Pulmonary: Effort: Pulmonary effort is normal. Breath sounds: Normal breath sounds. Abdominal: General: Bowel sounds are normal. There is no distension. Palpations: Abdomen is soft. There is no mass. Tenderness: There is no abdominal tenderness. Musculoskeletal: General: No deformity. Normal range of motion. Right lower leg: No edema. Left lower leg: No edema. Lymphadenopathy: Cervical: No cervical adenopathy. Skin: General: Skin is warm and dry. Coloration: Skin is not jaundiced or pale. Findings: No rash. Neurological: General: No focal deficit present. Mental Status: She is alert and oriented to person, place, and time. Cranial Nerves: No cranial nerve deficit. Sensory: No sensory deficit. Motor: No abnormal muscle tone. Coordination: Coordination normal. Deep Tendon Reflexes: Reflexes normal. Psychiatric: Attention and Perception: Attention and perception normal. Mood and Affect: Mood and affect normal. Speech: Speech normal. Behavior: Behavior normal. Thought Content: Thought content normal. Cognition and Memory: Cognition normal. Judgment: Judgment normal. Latest Ref Rng 2020 01/04/2021 10/06/2023 WBC 3.70 - 11.00 k/uL 9.00 5.91 9.05 RBC 3.90 - 5.20 m/uL 4.71 4.62 4.90 Hemoglobin 11.5 - 15.5 g/dL 14.6 14.4 15.3 Hematocrit 36.0 - 46.0 % 43.6 43.4 45.1 MCV 80.0 - 100.0 fL 92.6 93.9 92.0 MCH 26.0 - 34.0 pg 31.0 31.2 31.2 MCHC 30.5 - 36.0 g/dL 33.5 33.2 33.9 RDW-CV 11.5 - 15.0 % 11.5 11.9 11.7 Platelet Count 150 - 400 k/uL 258 264 295 MPV 9.0 - 12.7 fL 12.1 12.1 11.9 Neut% % 68.3 71.3 Abs Neut (ANC) 1.45 - 7.50 k/uL 4.02 6.46 Lymph% % 23.4 18.5 Abs Lymph 1.00 - 4.00 k/uL 1.38 1.67 Marathon% % 5.1 4.8 Abs [place] <0.87 k/uL 0.30 0.43 Eosin% % 2.0 3.9 Abs Eosin <0.46 k/uL 0.12 0.35 Baso% % 1.2 1.2 Abs Baso <0.11 k/uL 0.07 0.11 (H) Immature Gran % % 0.3 IMMATURE GRANS (ABS) <0.10 k/uL 0.03 NRBC /100 WBC 0.0 Absolute nRBC <0.01 k/uL <0.01 <0.01 <0.01 DTYPE Auto Nucleated Reds 0 /100 WBC 0.0 Diff Type Auto Diff Protein, Total 6.3 - 8.0 g/dL 7.1 7.3 Albumin 3.9 - 4.9 g/dL 4.9 4.7 Calcium 8.5 - 10.2 mg/dL 9.8 10.2 Bilirubin, Total 0.2 - 1.3 mg/dL 0.4 0.5 Alkaline Phosphatase 34 - 123 U/L 44 64 AST 13 - 35 U/L 14 20 Glucose 74 - 99 mg/dL 98 96 BUN 7 - 21 mg/dL 9 9 Creatinine 0.58 - 0.96 mg/dL 0.80 0.75 Sodium 136 - 144 mmol/L 140 140 Potassium 3.7 - 5.1 mmol/L 4.1 4.0 Chloride 97 - 105 mmol/L 102 102 CO2 22 - 30 mmol/L 25 27 Anion Gap 9 - 18 mmol/L 13 11 ALT 7 - 38 U/L 14 16 eGFR- >60 eGFR-All Other Races . >60 eGFR >=60 mL/min/1.73m 102 Total Cholesterol, Nonfasting <200 mg/dL 185 Triglycerides, Nonfasting <150 mg/dL 178 (H) HDL Cholesterol, Nonfasting >39 mg/dL 46 LDL Cholesterol, Nonfasting <100 mg/dL 103 (H) Non HDL Cholesterol, Nonfasting <130 mg/dL 139 (H) VLDL Cholesterol, Nonfasting <30 mg/dL 36 (H) Total Chol/HDL Ratio, Nonfasting <5.10 mg/dL 4.02 LDL/HDL Ratio, Nonfasting <2.54 mg/dL 2.24 TSH 0.270 - 4.200 mIU/L 2.020 Legend: (H) High The 10-year ASCVD risk score (Jose Luis SAMPSON, et al., 2019) is: 0.7% Values used to calculate the score: Age: 43 years Sex: Female Is Non- : No Diabetic: No Tobacco smoker: No Systolic Blood Pressure: 122 mmHg Is BP treated: No HDL Cholesterol: 46 mg/dL Total Cholesterol: 185 mg/dL Assessment and Plan Encounter Diagnosis ICD-10-CM 1. Routine medical exam Z00.00 2. Anxiety F41.9 LORazepam (ATIVAN) 0.5 mg Doing well; does not need SSRI started back. Okay lorazepam as needed. Helps to have on hand 3. Breast cancer screening by mammogram Z12.31 NOMAN SCREENING W LUIS 4. Dense breasts R92.30 NOMAN SCREENING W LUIS Patient here for yearly exam and follow up. Above issues addressed with patient. Patient involved in shared decision making for management of medical issues. History and medications reviewed. Epic updated as needed Refills taken care of and meds adjusted as indicated after reviewed history, exam and labs. Health Maintenance reviewed. Updated record and/or ordered tests as recorded. Encouraged on efforts at healthy diet and regular exercise and adequate sleep. Aurelio Alexis MD documented in this encounter [facility] 10-06-2023 Instructions Kelsie Oconnell APRN.CNS - 10/06/2023 8:26 AM EDT Try gentle stretches for your shoulders for shoulder discomfort Try albuterol inhaler as needed for cough wheeze or shortness of breath Recommend adequate hydration, aim for 64 ounces of fluid daily. Avoid caffeinated beverages. Consider completing stress test and pulmonary function test. documented in this encounter [facility] 10-06-2023 History of Presen t illness Narrative streSUBJECTIVE: Covid-19 Vaccine( season) due on 02/14/2023 Behavioral Health Screening Never done HPI Kate Mckeon is a 43 year old female. PMH significant for ACTIVE PROBLEM LIST Adjustment Disorder With Anxious Mood Panic Disorder With Agoraphobia Fibroid, Uterine Bicornuate Uterus Polyp of Cervix Uteri Panic Attack Adjustment Disorder With Mixed Anxiety and Depressed Mood Presents for follow up visit regarding chest pain. She was last seen 09/29/2023 regarding hemorrhoids. At that visit noted intermittent chest pain. Returns to clinic today for further evaluation. HPI excerpted from previous visit: She notes bleeding hemorrhoid while traveling now resolved. She notes that she was having pain with bowel movements prior to the bleeding. Noted some mild spotting of blood with painful BMs then increased bleeding with need to change at tissues, bleeding through pants then the bleeding stopped. No dizziness or lightheadedness occurred with fast.She was seen by Dr. Herrera September 05, 2022. Noted grade 3 internal hemorrhoids. She underwent banding. Presents today with report of blood in stool.She separately reports intermittent chest pain that she would like to workup. She describes shooting pain in the left side of her chest that is intermittent and can persist for 3 days, typically lasting minutes. No reported change in functional capacity. Not currently occurring, would like workup of this before she increases exercise/activity for weight loss. Today reports that she has had chest discomfort for years. It is intermittent. Reports that it moves around. She notes typically having shooting pain which is described as a stabbing jab that is quick lasting seconds on the left side of her chest. Rarely can occur on the right side of the chest. It can happen daily for period of time, weeks then not at all for a long period. Can be reproducible especially on the right side by palpation. Does not occur with walking her dog 2.5 to 3 miles at a fast pace. Can occur with washing dishes. No change in functional capacity. Not limited in walking a flat surface or taking stairs. No associated symptoms. Does not cause her to stop what she is doing, mild symptom. Separately notes palpitations that can occur during menses that last for seconds, passes without intervention. Without report of headache, palpitations, dyspnea, peripheral edema, orthopnea, fatigue, and PND. She notes left shoulder discomfort with completing chores and lying on her left side at night. She notes childhood history of asthma. She has noted wheezing with walking at high elevations on vacation. Last 14 Encounter BP Readings: Date: BP: 09/29/2023 122/84 11/04/2022 122/82 09/05/2022 130/82 11/05/2021 124/80 09/24/2021 133/87 08/15/2021 112/63 05/28/2021 142/88 01/08/2021 112/74 01/04/2021 122/80 01/03/2021 130/82 02/11/2020 130/80 11/10/2019 132/84 08/21/2015 116/64 07/27/2015 124/82 Her most recent lipid panels are: No results found for: CHOL No results found for: HDL No results found for: LDL No results found for: TG Smoking: no history Family history: no first-degree relatives with heart disease or stroke, paternal grandfather had OH in his 50s. Review of Systems Constitutional: Negative. Cardiovascular: Positive for chest pain and palpitations. Gastrointestinal: Negative for rectal pain. Objective BP 132/70 (BP Site: Left Arm, BP Position: Sitting, BP Cuff Size: Large Adult) Pulse 84 Temp 36.6 C (97.8 F) Resp 12 Ht 167.6 cm (5' 6) Wt 73.5 kg (162 lb) LMP 10/06/2021 SpO2 100% BMI 26.15 kg/m Physical Exam Vitals and nursing note reviewed. Constitutional: Appearance: Normal appearance. HENT: Head: Normocephalic and atraumatic. Eyes: Conjunctiva/sclera: Conjunctivae normal. Neck: Thyroid: No thyromegaly. Vascular: Normal carotid pulses. No JVD. Cardiovascular: Rate and Rhythm: Normal rate and regular rhythm. Pulses: Carotid pulses are 2+ on the right side and 2+ on the left side. Radial pulses are 2+ on the right side and 2+ on the left side. Heart sounds: Normal heart sounds. Pulmonary: Effort: Pulmonary effort is normal. Breath sounds: Normal breath sounds. Abdominal: General: Bowel sounds are normal. There is no distension. Palpations: Abdomen is soft. There is no mass. Tenderness: There is no abdominal tenderness. There is no guarding or rebound. Musculoskeletal: Right lower leg: No edema. Left lower leg: No edema. Skin: General: Skin is warm and dry. Neurological: General: No focal deficit present. Mental Status: She is alert and oriented to person, place, and time. ALLERGIES Allergen Reactions Seasonal Allergies Other: See Comments Medication albuterol HFA (PROVENTIL HFA, VENTOLIN HFA) 90 mcg/actuation inhaler Inhale 2 Puffs as instructed every 4 hours as needed for wheezing/shortness of breath. Inhalational Spacing Device 1 Device one time only for 1 dose. hydrocortisone (ANUSOL-HC) 25 mg suppository 1 Suppository by RECTAL route two times a day as needed for up to 7 days. loratadine (CLARITIN ORAL) Take by mouth. prn Magnesium 250 mg tab Take 250 mg by mouth once daily. VIT #108-IRON-FA ORAL Take by mouth. PAST MEDICAL HISTORY Diagnosis Date Adjustment disorder with anxious mood 11/20/2010 Asthma childhood Bicornuate uterus 03/05/2012 Joint pain, hip Panic disorder with agoraphobia 11/20/2010 Social History Tobacco Use Smoking status: Never Smokeless tobacco: Never Vaping Use Vaping Use: Never used Substance Use Topics Alcohol use: Yes Alcohol/week: 16.1 standard drinks of alcohol Types: 7 Cans of Beer (12oz), 7 Mixed Drinks per week Comment: states approx 8 drinks per week Drug use: No ASSESSMENT/PLAN: 1. Chest pain, unspecified type - ICD9: 786.50, ICD10: R07.9 (primary diagnosis) Chest pain is atypical. EKG in the office today shows normal sinus rhythm without ectopy or ischemic changes. If symptoms persist endorse stress echo for further evaluation. - ECG COMPLETE - STRESS ECHO TREADMILL - PERFLUTREN LIPID MICROSPHERES 1.1 MG/ML INJECTION IN NS 10 ML - SODIUM CHLORIDE 0.9 % (FLUSH) INJECTION SYRINGE - COMPREHENSIVE METABOLIC PANEL - COMPLETE BLOOD COUNT AND DIFFERENTIAL - THYROID STIMULATING HORMONE - LIPID PANEL, NONFASTING - LIPID PANEL BASIC 2. History of asthma - ICD9: V12.69, ICD10: Z87.09 Try using inhaler as needed for cough wheeze shortness of breath - SPIROMETRY WITH DILATOR IF OBSTRUCTED 3. Palpitations - ICD9: 785.1, ICD10: R00.2 Endorse adequate hydration, avoid caffeine. Zio if not improved with lifestyle measures. - COMPREHENSIVE METABOLIC PANEL - COMPLETE BLOOD COUNT AND DIFFERENTIAL - THYROID STIMULATING HORMONE Try gentle stretches for your shoulders for shoulder discomfort Try albuterol inhaler as needed for cough wheeze or shortness of breath Recommend adequate hydration, aim for 64 ounces of fluid daily. Avoid caffeinated beverages. Consider completing stress test and pulmonary function test. Kelsie Oconnell APRN.CNS Medical Decision Making: Problems: Moderate: New problem with uncertain prognosis Data: Unique test(s) ordered: 3+ Risk: Moderate: Drug management Medical Decision Making Level: 4 - Moderate documented in this encounter [facility] 09-29-2023 History of Presen t illness Narrative SUBJECTIVE: Covid-19 Vaccine( season) due on 02/14/2023 Behavioral Health Screening Never done HPI Kate Mckeon is a 43 year old female. PMH significant for ACTIVE PROBLEM LIST Adjustment Disorder With Anxious Mood Panic Disorder With Agoraphobia Fibroid, Uterine Bicornuate Uterus Polyp of Cervix Uteri Panic Attack Adjustment Disorder With Mixed Anxiety and Depressed Mood She notes bleeding hemorrhoid while traveling now resolved. She notes that she was having pain with bowel movements prior to the bleeding. Noted some mild spotting of blood with painful BMs then increased bleeding with need to change at tissues, bleeding through pants then the bleeding stopped. No dizziness or lightheadedness occurred with fast. She was seen by Dr. Herrera September 05, 2022. Noted grade 3 internal hemorrhoids. She underwent banding. Presents today with report of blood in stool. She separately reports intermittent chest pain that she would like to workup. She describes shooting pain in the left side of her chest that is intermittent and can persist for 3 days, typically lasting minutes. No reported change in functional capacity. Not currently occurring, would like workup of this before she increases exercise/activity for weight loss. Review of Systems Constitutional: Negative. Gastrointestinal: Negative for rectal pain. Objective BP 122/84 Wt 72.6 kg (160 lb) LMP 10/06/2021 BMI 25.82 kg/m Physical Exam Vitals and nursing note reviewed. Constitutional: Appearance: Normal appearance. HENT: Head: Normocephalic and atraumatic. Eyes: Conjunctiva/sclera: Conjunctivae normal. Cardiovascular: Rate and Rhythm: Normal rate. Pulmonary: Effort: Pulmonary effort is normal. Abdominal: General: Bowel sounds are normal. There is no distension. Palpations: Abdomen is soft. There is no mass. Tenderness: There is no abdominal tenderness. There is no guarding or rebound. Skin: General: Skin is warm and dry. Neurological: Mental Status: She is alert. ALLERGIES Allergen Reactions Seasonal Allergies Other: See Comments Medication loratadine (CLARITIN ORAL) Take by mouth. prn Magnesium 250 mg tab Take 250 mg by mouth once daily. VIT #108-IRON-FA ORAL Take by mouth. L.acid/L.casei/B.bif/B.melchor/FOS (PROBIOTIC BLEND ORAL) Take by mouth as needed. (Patient not taking: Reported on 09/29/2023) PAST MEDICAL HISTORY Diagnosis Date Adjustment disorder with anxious mood 11/20/2010 Asthma childhood Bicornuate uterus 03/05/2012 Joint pain, hip Panic disorder with agoraphobia 11/20/2010 Social History Tobacco Use Smoking status: Never Smokeless tobacco: Never Vaping Use Vaping Use: Never used Substance Use Topics Alcohol use: Yes Alcohol/week: 16.1 standard drinks of alcohol Types: 7 Cans of Beer (12oz), 7 Mixed Drinks per week Comment: states approx 8 drinks per week Drug use: No ASSESSMENT/PLAN: 1. Hemorrhoids, unspecified hemorrhoid type - ICD9: 455.6, ICD10: K64.9 (primary diagnosis) Recommend to maintain adequate hydration and fiber. Treat hemorrhoid at first sign of symptoms such as pain with bowel movement or mild spotting. Feeling keep Anusol prescription on hand. For any severe bleeding would need to be seen in ER. - HYDROCORTISONE ACETATE 25 MG RECTAL SUPPOSITORY 2. Atypical chest pain - ICD9: 786.59, ICD10: R07.89 Return to clinic for further evaluation 1 to 4 weeks. ER for any severe concerning symptoms. Kelsie Oconnlel APRN.CNS Medical Decision Making: Problems: Low: Acute, uncomplicated illness or injury Moderate: New problem with uncertain prognosis Risk: Moderate: Drug management Medical Decision Making Level: 4 - Moderate documented in this encounter [facility] 08-04-2023 Miscellaneous Notes August 04, 2023 PID: [id number] Kate Mckeon [address] [place] [address] Dear Ms. Mckeon, We are pleased to inform you that the results of your recent breast imaging exam on 08/04/2023 are normal. Your mammogram demonstrates that you have dense breast tissue, which could hide abnormalities. Dense breast tissue, in and of itself, is a relatively common condition. Therefore, this information is not provided to cause undue concern; rather, it is to raise your awareness and promote discussion with your health care provider regarding the presence of dense breast tissue in addition to other risk factors. Early detection of cancer is very important. We also understand recommendations regarding breast cancer screening are controversial. Please discuss with your primary care provider which strategy is best for you and whether a mammogram is right for you. Your imaging studies and report will be kept on file at [facility] as part of your permanent medical record and are available for your continuing care. Thank you for allowing us to help in meeting your health care needs. Sincerely, Dr. Lyon Interpreting Radiologist [facility] (Normal over 40) documented in this encounter [facility] 08-04-2023 History of Presen t illness Narrative Radiology Service Progress Note PATIENT NAME: Kate Mckeon DATE OF SERVICE: August 04, 2023 TIME: 9:46 AM PATIENT IDENTITY VERIFICATION COMPLETED USING TWO (2) IDENTIFIERS: Name and Date of confirmed by patient verbally. FALL SCREENING: Has the patient had 2 falls in the last year or 1 fall with injury or currently using an Ambulatory Assistive Device (Walker, Cane, Wheelchair, Crutches, etc.)? No PATIENT GENDER DATA: Female. status: : No status: NO. PATIENT RELEVANT IMPLANT DATA REVIEWED: Not Applicable PATIENT PRESENTS WITH AN IMPLANTABLE OR ATTACHED COMPRESSED GAS EQUIPMENT MECHANIC: No RADIOLOGY DEPARTMENT: Mammography PERIPHERAL IV DATA: Not applicable SIGNED BY: Nate Harris August 04, 2023 9:46 AM documented in this encounter [facility] 11-08-2022 Miscellaneous Notes Called and left message to call office back for update regarding notes below. Filomena Palacios LPN Would be fine for her to go ahead and try the enema Called and updated patient, patient stated taking probiotic and is eating a high fiber diet. Will try the miralax, wants to know if should use a fleets enema? Please review and advise. Thank you. Filomena Palacios LPN Dr. Herrera is currently out of the office. Please let patient know no restrictions on eating, would recommend adding in daily fiber and/or probiotic along with plenty of fluids to see if this helps to regulate her stools. Can also use miralax short-term to help get bowels moving Patient called again to see if any response from provider. Patient states that she has refrained from eating today and wants to know if it would be okay to eat or if she should stick to liquids only. Pt. calling in states she recently had a hemorrhoid banding and has been experiencing loose/ watery stools for about a week now. Pt. states when she does go, her stool is very thin appox the size of a noodle. Pt. states she has not had a normal bowel movement in a week. States she is having some lower left back pain and some lower left abdomen pain. States some mild nausea when she is trying to have a bowel movement. Pt. did try some dulcolax and produced a diarrhea bowel movement, but feels that her bowel is not cleared. States she has never been a regular bowel movement [employer], but her stools have always been normal consistency. Please advise and call pt. Thank you. Yanni Johnson RN documented in this encounter [facility] 09-06-2022 History of Presen t illness Narrative Kate Mckeon 1980 REFERRING PHYSICIAN: No ref. provider found CHIEF COMPLAINT: Consult (hemorrhoids) HPI: The patient is a 42 year old female presents with complaint of hemorrhoids. She is here for hemorrhoidal banding. PAST MEDICAL HISTORY Diagnosis Date Adjustment disorder with anxious mood 11/20/2010 Asthma childhood Bicornuate uterus 03/05/2012 Joint pain, hip Panic disorder with agoraphobia 11/20/2010 PAST SURGICAL HISTORY Procedure Laterality Date COLONOSCOPY 08/15/2021 , repeat in 5 years EXCIS UTERINE FIBROID,VAG APPRCH Current Outpatient Medications Medication Sig LORazepam (ATIVAN) 0.5 mg Take 0.25 mg by mouth as needed. psyllium husk (METAMUCIL ORAL) Take by mouth. loratadine (CLARITIN ORAL) Take by mouth. prn Magnesium 250 mg tab Take 250 mg by mouth once daily. VIT #108-IRON-FA ORAL Take by mouth. escitalopram oxalate (LEXAPRO) 5 mg tablet Take 1 tablet by mouth once daily. (Patient not taking: Reported on 09/05/2022) L.acid/L.casei/B.bif/B.melchor/FOS (PROBIOTIC BLEND ORAL) Take by mouth. (Patient not taking: Reported on 09/05/2022) GARLIC (Patient not taking: Reported on 09/05/2022) clotrimazole-betamethasone (LOTRISONE) cream Apply 1 application to affected area twice daily. (Patient not taking: Reported on 09/05/2022) amoxicillin-clavulanic acid (AUGMENTIN) 875-125 mg per tablet TAKE 1 TABLET BY MOUTH TWICE DAILY WITH FOOD FOR 10 DAYS (Patient not taking: Reported on 09/05/2022) ALLERGIES: Seasonal Allergies The review of systems data was entered by the nurse and reviewed by id Nursing Notes: Filomena PalaciosSHAHNAZ 09/05/2022 4:05 PM Signed REVIEW OF SYSTEMS: General: The patient notes fatigue, notes weight loss, notes weight gain, notes feeling hot, and notes feelings of cold. Eyes: The patient denies glaucoma, denies eye injury/surgery, wears glasses or contacts. Ear/Nose/Throat: The patient notes allergies, denies hayfever, denies ear infections, and denies bloody noses. Cardiovascular: The patient denies chest pain, denies heart disease, notes high blood pressure,denies cardiac stent, denies prior heart attack, denies irregular heart beat, denies high cholesterol, denies poor circulation, denies heart failure, other cardiac issues, denies claudication, notes cold feet, denies peripheral arterial stent. Respiratory: The patient denies tuberculosis, denies pneumonia, denies frequent cough, denies pulmonary embolism, denies shortness of breath, and denies coughing up blood. Gastrointestinal: The patient denies difficulty swallowing, notes acid reflux, denies ulcers, notes vomiting, denies jaundice/hepatitis, denies gallbladder problems, denies black or tarry stools, notes hemorrhoids, notes bleeding from rectum, denies diverticulitis, notes constipation, notes diarrhea, denies loss of stool control, and denies hernias. Kidney/Bladder: The patient notes kidney stones, notes urine infections, and bloody urine. Skin: The patient denies a history of skin cancer, denies bleeding/changing moles, and notes a history of skin rash. Neurologic: The patient denies a history of epilepsy/convulsions, notes headaches, denies head/spinal injuries, and denies stroke/TIA. Psychiatric: The patient notes psychiatric medications, denies depression, and denies voices, denies substance abuse. Endocrine: The patient denies thyroid disorders, denies diabetes, and denies hormonal problems. Hematologic: The patient denies a history of bruising, notes bleeding, and denies anemia, denies blood clots. Infections: The patient denies a history of measles and mumps, denies rheumatic fever, and denies sexually transmitted diseases. Musculoskeletal: The patient notes back pain/injury, denies back problems, denies sciatica, denies knee/foot trouble, denies arthritis, or denies gout. When was patient's last Mammogram screening? 2021 Last Colonoscopy: 2021 SHAHNAZ Christy LPN 09/05/2022 4:29 PM Sign at exiting of workspace UNIVERSAL PROTOCOL / SAFETY CHECKLIST Procedure to be Performed: Hemorrhoidal banding Sign In: A Moment of CARE was completed. Personnel directly involved with the procedure wore the appropriate PPE (Personal Protective Equipment). No special equipment needed. Patient/Surrogate Stated/Verified: PATIENT VERIFIED(optional for EMERGENT procedures): Patient name, Date of , Relevant allergies, and The intended procedure Time Out Communication: Intended patient and procedure match the source documents. Consent documented and matches the intended procedure. Relevant labs, photos, and/or imaging studies have been reviewed. Correct side/site marked and visible. No medications required for procedure. No fire risk assessment and interventions applicable. No implant(s) inserted. Sign Out: SIGN OUT (optional for EMERGENT procedures): No specimen collected. No instruments, equipment or retained foreign bodies applicable. Post-procedure follow-up management communicated and Plan of Care Visit completed when applicable. Keely Gill LPN PHYSICAL EXAMINATION: General: The patient is 42 year old female, well nourished, well hydrated in no acute distress. The patient is oriented to time, place, and person. VITALS: Blood pressure 130/82, pulse 117, temperature 36.4 C (97.6 F), height 167.6 cm (5' 6), weight 73.5 kg (162 lb), last menstrual period 10/06/2021, SpO2 99 %. Body mass index is 26.15 kg/m . Head: Normal cephalic, atraumatic Eyes: pupils are equally round, sclera are clear/anicteric Neck is supple with no tracheal deviation Respiratory: Normal respiratory excursion and pattern. Abdominal exam: benign Extremities: no clubbing, cyanosis or edema. Neuro: non focal Psych: normal mood Assessment IMPRESSION: hemorrhoids PLAN: I have discussed the above with the patient. I have offered hemorrhoidal banding. I have explained the procedure to the patient. I have counseled the patient as to the risks of the procedure, including but not limited to: infection, bleeding, injury to any blood vessels/nerves, scar tissue, pain, wound infections, etc. - the patient understands. I have explained that multiple treatments may be required. The patient wishes to proceed. I have answered all questions to the patient s satisfaction and the patient has no further questions. I have confirmed and edited as necessary, the PFSH and ROS obtained by others. . Diagnoses: (K64.2) Grade III internal hemorrhoids (K64.4) External hemorrhoid Return to Clinic: The patient is instructed to follow-up with me as per needed. Procedure note: Kate is here for hemorrhoidal banding. I have asked if the patient has any questions regarding the procedure and the patient states that she has no further questions. I have once again discussed with the patient the risks/benefits of the procedure. The patient wishes to proceed. After informed consent was obtained, patient was placed in the prone kneeling position on the examination table. A digital rectal examination was done, which revealed no evidence of any masses. The patient was noted to have normal perianal skin and normal sphincter tone. She had grade III internal hemorrhoids.. The patient had external hemorrhoidal tags. Gentle dilation was done to relax the sphincter muscle. The anoscope was then inserted into the anus. 360 degree examination revealed normal mucosa, no tears/lesions/abnormalities were noted of the anal canal except for hemorrhoidal disease. A hemorrhoidal band was placed at the 3:00 and 9:00 position. The patient tolerated the procedure well. Complications: none EBL: none Tati Herrera MD documented in this encounter [facility] 09-05-2022 Instructions Keely Gill LPN - 09/05/2022 4:29 PM EDT Instructions After HEMORRHODIAL BANDING If you note worsening anal pain, fever or significant anal redness or swellingcontact the office immediately. Minor bleeding from the anus is common. If there is continued bleeding, you should contact our office immediately. The banded hemorrhoidal complex will slough off in 4-5 days on average. Bleeding or some tissue with a black rubber band may be seen in the toilet bowl. You may require multiple bandings to correct your internal hemorrhoidal symptoms. Please make an appointment to return to our office in 4 weeks for possible repeat banding if your symptoms have not resolved. If you have any questions or concerns please feel free to call our office at [phone] and ask to be transferred to General Surgery. Thank you for choosing [facility] - General Surgery. documented in this encounter [facility] 09-05-2022 Nurse Note UNIVERSAL PROTOCOL / SAFETY CHECKLIST Procedure to be Performed: Hemorrhoidal banding Sign In: A Moment of CARE was completed. Personnel directly involved with the procedure wore the appropriate PPE (Personal Protective Equipment). No special equipment needed. Patient/Surrogate Stated/Verified: PATIENT VERIFIED(optional for EMERGENT procedures): Patient name, Date of , Relevant allergies, and The intended procedure Time Out Communication: Intended patient and procedure match the source documents. Consent documented and matches the intended procedure. Relevant labs, photos, and/or imaging studies have been reviewed. Correct side/site marked and visible. No medications required for procedure. No fire risk assessment and interventions applicable. No implant(s) inserted. Sign Out: SIGN OUT (optional for EMERGENT procedures): No specimen collected. No instruments, equipment or retained foreign bodies applicable. Post-procedure follow-up management communicated and Plan of Care Visit completed when applicable. Keely Gill LPN REVIEW OF SYSTEMS: General: The patient notes fatigue, notes weight loss, notes weight gain, notes feeling hot, and notes feelings of cold. Eyes: The patient denies glaucoma, denies eye injury/surgery, wears glasses or contacts. Ear/Nose/Throat: The patient notes allergies, denies hayfever, denies ear infections, and denies bloody noses. Cardiovascular: The patient denies chest pain, denies heart disease, notes high blood pressure,denies cardiac stent, denies prior heart attack, denies irregular heart beat, denies high cholesterol, denies poor circulation, denies heart failure, other cardiac issues, denies claudication, notes cold feet, denies peripheral arterial stent. Respiratory: The patient denies tuberculosis, denies pneumonia, denies frequent cough, denies pulmonary embolism, denies shortness of breath, and denies coughing up blood. Gastrointestinal: The patient denies difficulty swallowing, notes acid reflux, denies ulcers, notes vomiting, denies jaundice/hepatitis, denies gallbladder problems, denies black or tarry stools, notes hemorrhoids, notes bleeding from rectum, denies diverticulitis, notes constipation, notes diarrhea, denies loss of stool control, and denies hernias. Kidney/Bladder: The patient notes kidney stones, notes urine infections, and bloody urine. Skin: The patient denies a history of skin cancer, denies bleeding/changing moles, and notes a history of skin rash. Neurologic: The patient denies a history of epilepsy/convulsions, notes headaches, denies head/spinal injuries, and denies stroke/TIA. Psychiatric: The patient notes psychiatric medications, denies depression, and denies voices, denies substance abuse. Endocrine: The patient denies thyroid disorders, denies diabetes, and denies hormonal problems. Hematologic: The patient denies a history of bruising, notes bleeding, and denies anemia, denies blood clots. Infections: The patient denies a history of measles and mumps, denies rheumatic fever, and denies sexually transmitted diseases. Musculoskeletal: The patient notes back pain/injury, denies back problems, denies sciatica, denies knee/foot trouble, denies arthritis, or denies gout. When was patient's last Mammogram screening? 2021 Last Colonoscopy: 2021 Filomena Palacios LPN documented in this encounter [facility] 09-04-2022 Miscellaneous Notes The enema should be completed 2 hours before the visit. Attempted to call the patient, no answer and received a generic voicemail message. Asked patient to please return our call. Fior Gandhi RN Patient called back stating she is scheduled tomorrow at 4 pm. She is asking when she needs to do the enema? Tried calling patient, no answer, no identifying voicemail. No message left. Patient will have to schedule an office visit to see Dr. Herrera. Hemorrhoid banding may be done the same day but decision is left up to provider depending on patients needs. If hemorrhoid banding, patient will need to administer a fleet enema prior to appointment. Will route this message to PSS to schedule patient or if patient calls back can be routed to PSS to schedule. Keely Gill LPN Patient called in stating she had colonoscopy last spring for rectal bleeding. For the last month she has noticed varying amounts of blood in the toilet and on the tissue after having a bowel movement. She remembered that she was told it could be cauterized. The colonoscopy follow up note states -If rectal bleeding recurs, contact office to set up hemorrhoidal banding with Dr. Herrera. Patient asked if the procedure would be completed when in the office or if she would need to schedule a consult and then come back for the procedure? Will she need any kind of prep? Will she need a concrete truck driver? Patient can be reached back at [phone]. documented in this encounter [facility] 02-04-2022 Miscellaneous Notes Last OV: 05/28/2021 Next OV: 05/13/2022 documented in this encounter [facility] 11-26-2021 Miscellaneous Notes Okayed Patient has been identified by name and date of : Yes Patient phones for refill(s): Pending Prescriptions Disp Refills ESCITALOPRAM 5 MG TABLET 90 tablet 0 Sig: Take 1 tablet by mouth once daily. CARLOS: No Date of last office visit in primary care: 05/28/21 next apt 02/05/22 Last 2 Encounter Wt Readings: Date: Wt: 11/05/2021 73.9 kg (163 lb) 09/24/2021 72.1 kg (159 lb) Previous labs/tests for medication: Not applicable Please advise. Thank you. Emperatriz Morales LPN documented in this encounter [facility] 11-07-2021 Miscellaneous Notes Patient notified. Ivania Ulrich RN The following approved medication requests have been transmitted electronically. Signed Prescriptions Disp Refills ciprofloxacin HCl (CIPRO) 500 mg tablet 6 tablet 0 Sig: Take 1 tablet by mouth twice daily for 3 days. Authorizing Provider: LYSSA YEBOAH Pharmacy Information [place] [address] Notify patient of + UTI on culture. ABX ordered. documented in this encounter [facility] 11-05-2021 History of Presen t illness Narrative Kate Mckeon is a 41 year old female who presents for concerns regarding vaginal and vulvar irritation. Patient states for the past 3 to 4 weeks has noticed she just feels swollen and irritated. She has not noticed an odor or significant discharge. Patient states she was treated with 2 rounds of antibiotics for other illnesses. Patient states she tried [id number] Monistat with little relief. Patient denies any concerns for STDs is in a monogamous relationship. Patient denies any changes with soaps or detergents. Patient reports that when she urinates and the urine touches the skin she does have irritation. There is 1 spot on the right labia that is most bothersome to her. Patient offers no other concerns at this time. OB History T0 L0 SAB1 IAB0 Ectopic0 Multiple0 Live Births0 Merchandise Pickup/Receiving Associate History LMP: 08/11/2021 (Exact Date), Having periods Age at Menarche: Age at First : Age at Menopause: Merchandise Pickup/Receiving Associate History Comments: Sexual Activity: Yes; Male Contraception: None PAST MEDICAL HISTORY Diagnosis Date Adjustment disorder with anxious mood 11/20/2010 Asthma childhood Bicornuate uterus 03/05/2012 Joint pain, hip Panic disorder with agoraphobia 11/20/2010 PAST SURGICAL HISTORY Procedure Laterality Date COLONOSCOPY 08/15/2021 , repeat in 5 years EXCIS UTERINE FIBROID,VAG APPRCH FAMILY HISTORY Problem Relation Age of Onset Arthritis Mother in thumb Hypertension Mother Headache Mother Coronary Artery Disease Maternal Grandmother Colon Cancer Paternal Grandmother Ovarian cancer Paternal Grandmother Heart Paternal Grandfather chf Social History Tobacco Use Smoking status: Never Smoker Smokeless tobacco: Never Used Vaping Use Vaping Use: Never used Substance Use Topics Alcohol use: Yes Alcohol/week: 16.1 standard drinks Types: 7 Cans of Beer (12oz), 7 Mixed Drinks per week Comment: states approx 8 drinks per week Drug use: No Current Outpatient Medications Medication Sig amoxicillin-clavulanic acid (AUGMENTIN) 875-125 mg per tablet TAKE 1 TABLET BY MOUTH TWICE DAILY WITH FOOD FOR 10 DAYS escitalopram oxalate (LEXAPRO) 5 mg tablet Take 1 tablet by mouth once daily. LORazepam (ATIVAN) 0.5 mg Take 1 tablet by mouth once daily as needed for up to 180 days. psyllium husk (METAMUCIL ORAL) Take by mouth. loratadine (CLARITIN ORAL) Take by mouth. prn Magnesium 250 mg tab Take 250 mg by mouth once daily. VIT #108-IRON-FA ORAL Take by mouth. No current facility-administered medications for this visit. Allergies As of Date: 11/05/2021 Allergen Noted Reaction SEASONAL ALLERGIES 01/04/2021 Other: See Comments Fully Assessed 09/28/2021 REVIEW OF SYSTEMS Abdomen: no pain Bladder: some dysuria.. Expanded ROS: GENERAL: Negative for fever Allergies and current medication updated:Yes EXAM: LMP 08/11/2021 GENERAL: pleasant, female in no apparent distress HEENT: Normocephalic, atraumatic, mucus membranes moist and no lesions NECK: full range of motion DERMATOLOGY: Normal, without lesions, non-icteric and non-hirsute PELVIC: external genitalia normal, normal Barth[place]'s glands, urethra, [place]'s glands, no vulvar lesions, no cervical lesions, good vaginal support, physiologic discharge present, normal appearing perineal body and perianal region, mild erythema. BIMANUAL: deferred NEURO: alert and oriented x3,exam grossly non-focal EXTREMITIES: normal ASSESSMENT AND PLAN: Encounter Diagnosis ICD-10-CM 1. Encounter for screening mammogram for malignant neoplasm of breast Z12.31 NOMAN SCREENING W LUIS 2. Dysuria R30.0 URINE CULTURE 3. Vaginal irritation N89.8 BACTERIAL VAGINOSIS AMPLIFICATION 4. Reviewed vaginal and vulvar hygiene. Recommend [id number] daily probiotic Azo dual relief yeast and odor. Discussed Lotrisone for topical use only. Call if worsening or if symptoms or not improved in 48 to 72 hours. I spent a total of 20 minutes on the date of the service which included preparing to see the patient, [id number] patient care, completing clinical documentation, obtaining and/or reviewing separately obtained history, performing a medically appropriate examination and counseling and educating the patient/family/caregiver Medical Decision Making Lyssa Figueroa MD documented in this encounter [facility] 09-28-2021 History of Presen t illness Narrative FOLLOW UP VISIT - ENDOSCOPY NAME: Kate Farmer [facility] NO.: [id number] DATE OF SERVICE: 09/24/2021 : 1980 REFERRING PHYSICIAN: MD Kate Coulter is a patient I am following with Dr. Herrera for blood in stool. Dr. Herrera performed lower endoscopy on 08/15/21. Findings per operative report showed: Impression: - Non-bleeding external and internal hemorrhoids. - One 3 to 6 mm polyp at the hepatic flexure, removed with a cold snare. Resected and retrieved. Pathology demonstrated: FINAL DIAGNOSIS Hepatic flexure, biopsy: - Tubular adenoma. KIRA/pérez 08/16/2021 The patient notes no complaints since the procedure. Denies any further episodes of rectal bleeding. VITALS: Blood pressure 133/87, pulse 87, temperature 36.9 C (98.5 F), height 170.2 cm (5' 7), weight 72.1 kg (159 lb), last menstrual period 08/11/2021, SpO2 97 %. General: patient is alert, cooperative, pleasant and in no acute distress On examination, the abdomen is benign. Assessment IMPRESSION: s/p colonoscopy with polypectomy-tubular adenoma <10 mm in size. Internal hemorrhoids. Denies rectal bleeding currently PLAN: The operative findings and pathology report were reviewed with the patient, and the patient has had the opportunity to ask questions and have questions answered. If the patient notes any problems or changes in bowel function, the patient should contact me immediately. Otherwise I recommend follow up endoscopy in 5 years per current guidelines based on size and pathology of polyp. HM updated and recall letter generated. -Recommend daily fiber supplement -If rectal bleeding recurs, contact office to set up hemorrhoidal banding with Dr. Herrera Patient verbalized understanding of all above and agreed with the plan Diagnoses: (D36.9) Tubular adenoma (primary encounter diagnosis) (K64.4, K64.8) Internal and external hemorrhoids without complication I spent a total of 23 minutes on the date of the service which included preparing to see the patient, [id number] patient care, completing clinical documentation, obtaining and/or reviewing separately obtained history, independently interpreting results (not separately reported) and communicating results to the patient/family/caregiver. Keshia Aldridge PA-C documented in this encounter [facility] 09-27-2021 Miscellaneous Notes September 27, 2021 PID: [id number] Kate Mckeon [address] [place] [address] Dear Ms. Mckeon, We are pleased to inform you that the results of your recent breast imaging exam on 09/27/2021 are normal. Your mammogram demonstrates that you have dense breast tissue, which could hide abnormalities. Dense breast tissue, in and of itself, is a relatively common condition. Therefore, this information is not provided to cause undue concern; rather, it is to raise your awareness and promote discussion with your health care provider regarding the presence of dense breast tissue in addition to other risk factors. Early detection of cancer is very important. We also understand recommendations regarding breast cancer screening are controversial. Please discuss with your primary care provider which strategy is best for you and whether a mammogram is right for you. Your imaging studies and report will be kept on file at [facility] as part of your permanent medical record and are available for your continuing care. Thank you for allowing us to help in meeting your health care needs. Sincerely, Dr. Wong Interpreting Radiologist [facility] (Normal over 40) documented in this encounter [facility] 09-27-2021 History of Presen t illness Narrative Radiology Service Progress Note PATIENT NAME: Kate Mckeon DATE OF SERVICE: September 27, 2021 TIME: 10:57 AM PATIENT IDENTITY VERIFICATION COMPLETED USING TWO (2) IDENTIFIERS: Name and Date of confirmed by patient verbally. FALL SCREENING: Has the patient had 2 falls in the last year or 1 fall with injury or currently using an Ambulatory Assistive Device (Walker, Cane, Wheelchair, Crutches, etc.)? No PATIENT GENDER DATA: Female. status: : No status: NO. PATIENT RELEVANT IMPLANT DATA REVIEWED: Not Applicable RADIOLOGY DEPARTMENT: Mammography PERIPHERAL IV DATA: Not applicable SIGNED BY: RT Janeen(R) September 27, 2021 10:57 AM documented in this encounter [facility] 09-24-2021 Instructions Keshia Aldridge PA-C - 09/24/2021 10:52 AM EDT -If rectal bleeding recurs, contact office to set up hemorrhoidal banding with Dr. Herrera The following instructions are important for you related to your office visit today with the [facility] General Surgeons. INSTRUCTIONS FOLLOWING A POLYP FOUND AT COLONOSCOPY You were found to have an adenomatous colon polyp. I recommend you undergo repeat endoscopy in 5 years. If you note bleeding, change in bowel habits, or other suspicious colon related symptoms before that time, those symptoms should be evaluated as necessary. If you have any difficulties or concerns, you should contact our office immediately. If you note any additional difficulties, questions, or concerns, you should contact our office immediately @ [phone] and ask to be transferred to the General Surgery department. documented in this encounter [facility] 01-20-2014 History of Past i llness Narrative Problem Noted Date Resolved Date Threatened 01/20/2014 01/25/2014 Overview: Sac measuring 5 w3d very early pole yolk sac no FHT check quants and repeat scan next week Lottie King MD Routine medical exam 03/14/2011 01/25/2014 documented as of this encounter (statuses as of 09/28/2021) [facility] History of Past illness Narrative* Problem Noted Date Resolved Date Threatened 01/20/2014 01/25/2014 Overview: Sac measuring 5 w3d very early pole yolk sac no FHT check quants and repeat scan next week Lottie King MD Routine medical exam 03/14/2011 01/25/2014 documented as of this encounter (statuses as of 09/28/2021) [facility] History of Past illness Narrative* Problem Noted Date Resolved Date Threatened 01/20/2014 01/25/2014 Overview: Sac measuring 5 w3d very early pole yolk sac no FHT check quants and repeat scan next week Lottie King MD Routine medical exam 03/14/2011 01/25/2014 documented as of this encounter (statuses as of 09/29/2021) [facility] History of Past illness Narrative* Problem Noted Date Resolved Date Threatened 01/20/2014 01/25/2014 Overview: Sac measuring 5 w3d very early pole yolk sac no FHT check quants and repeat scan next week Lottie King MD Routine medical exam 03/14/2011 01/25/2014 documented as of this encounter (statuses as of 11/05/2021) [facility] History of Past illness Narrative* Problem Noted Date Resolved Date Threatened 01/20/2014 01/25/2014 Overview: Sac measuring 5 w3d very early pole yolk sac no FHT check quants and repeat scan next week Lottie King MD Routine medical exam 03/14/2011 01/25/2014 documented as of this encounter (statuses as of 11/07/2021) [facility] History of Past illness Narrative* Problem Noted Date Resolved Date Threatened 01/20/2014 01/25/2014 Overview: Sac measuring 5 w3d very early pole yolk sac no FHT check quants and repeat scan next week Lottie King MD Routine medical exam 03/14/2011 01/25/2014 documented as of this encounter (statuses as of 11/26/2021) [facility] History of Past illness Narrative* Problem Noted Date Resolved Date Threatened 01/20/2014 01/25/2014 Overview: Sac measuring 5 w3d very early pole yolk sac no FHT check quants and repeat scan next week Lottie King MD Routine medical exam 03/14/2011 01/25/2014 documented as of this encounter (statuses as of 02/04/2022) [facility] History of Past illness Narrative* Problem Noted Date Resolved Date Threatened 01/20/2014 01/25/2014 Overview: Sac measuring 5 w3d very early pole yolk sac no FHT check quants and repeat scan next week Lottie King MD Routine medical exam 03/14/2011 01/25/2014 documented as of this encounter (statuses as of 09/04/2022) [facility] History of Past illness Narrative* Problem Noted Date Resolved Date Threatened 01/20/2014 01/25/2014 Overview: Sac measuring 5 w3d very early pole yolk sac no FHT check quants and repeat scan next week Lottie King MD Routine medical exam 03/14/2011 01/25/2014 documented as of this encounter (statuses as of 09/08/2022) [facility] History of Past illness Narrative* Problem Noted Date Resolved Date Threatened 01/20/2014 01/25/2014 Overview: Sac measuring 5 w3d very early pole yolk sac no FHT check quants and repeat scan next week Lottie King MD Routine medical exam 03/14/2011 01/25/2014 documented as of this encounter (statuses as of 11/29/2022) [facility] History of Past illness Narrative* Problem Noted Date Diagnosed Date Resolved Date Threatened 01/20/2014 01/26/20 14 Overview: Sac measuring 5 w3d very early pole yolk sac no FHT check quants and repeat scan next week Lottie King MD Routine medical exam 03/14/2011 014 documented as of this encounter (statuses as of 08/05/2023) [facility] History of Past illness Narrative* Problem Noted Date Diagnosed Date Resolved Date Threatened 01/20/2014 01/26/20 14 Overview: Sac measuring 5 w3d very early pole yolk sac no FHT check quants and repeat scan next week Lottie King MD Routine medical exam 03/14/2011 014 documented as of this encounter (statuses as of 08/06/2023) [facility] History of Past illness Narrative* Problem Noted Date Diagnosed Date Resolved Date Threatened 01/20/2014 01/26/20 14 Overview: Sac measuring 5 w3d very early pole yolk sac no FHT check quants and repeat scan next week Lottie King MD Routine medical exam 03/14/2011 014 documented as of this encounter (statuses as of 09/29/2023) [facility] History of Past illness Narrative* Problem Noted Date Diagnosed Date Resolved Date Threatened 01/20/2014 01/26/20 14 Overview: Sac measuring 5 w3d very early pole yolk sac no FHT check quants and repeat scan next week Lottie King MD Routine medical exam 03/14/2011 014 documented as of this encounter (statuses as of 10/06/2023) [facility] Diagnosis Encounter for screening mammogram for malignant neoplasm of breast Other screening mammogram [facility] Diagnosis Tubular adenoma- Primary Benign neoplasm of unspecified site Internal and external hemorrhoids without complication Internal hemorrhoids without mention of complication [facility] Diagnosis Encounter for screening mammogram for malignant neoplasm of breast- Primary Other screening mammogram Dysuria Vaginal irritation Unspecified noninflammatory disorder of vagina [facility] Panic attack Panic disorder without agoraphobia Adjustment disorder with mixed anxiety and depressed mood [facility] Diagnosis Grade III internal hemorrhoids External hemorrhoid External hemorrhoids without mention of complication [facility] Diagnosis Encounter for screening mammogram for breast cancer [facility] Diagnosis Hemorrhoids, unspecified hemorrhoid type- Primary Atypical chest pain Other chest pain [facility] Chest pain, unspecified type- Primary History of asthma Personal history of other diseases of respiratory system Palpitations [facility] Routine medical exam- Primary Routine general medical examination at a health care facility Anxiety Anxiety state, unspecified Breast cancer screening by mammogram Dense breasts Inconclusive [facility] Hemorrhoids, unspecified hemorrhoid type [facility] Diagnosis Hemorrhoids, unspecified hemorrhoid type [facility] Diagnosis Encounter for screening mammogram for breast cancer [facility] Diagnosis Routine medical exam- Primary Routine general medical examination at a health care facility Anxiety Anxiety state, unspecified S/P laparoscopic cholecystectomy Other postprocedural status Cyst of right ovary Other and unspecified ovarian cyst Screening for depression documented in this encounter [facility] for referral (narrative)* Diagnostic Procedure Only (Routine) - Pending Review Specialty Diagnoses / Procedures Referred By Yesi sheth Referred To Contact [facility] Diagnoses Encounter for screening mammogram for malignant neoplasm of breast Procedures NOMAN SCREENING W LUIS SCREENING DIGITAL BREAST TOMOSYNTHESIS BI SCREENING MAMMOGRAPHY BI 2-VIEW BREAST INC CAD Lyssa Yeboah MD [address] [place] [address] [facility] [address] [place] [address] Referral ID Status Reason Start Date Expiration Date Visits Requested Visits Authorized [id number] Pending Review Auto-Generat ed Referral 11/05/2021 12/05/2022 1 1 [facility] for referral (narrative)* Diagnostic Procedure Only (Routine) - Closed Specialty Diagnoses / Procedures Referred By Yesi sheth Referred To Contact [facility] Diagnoses Encounter for screening mammogram for breast cancer Procedures NOMAN SCREENING W LUIS SCREENING DIGITAL BREAST TOMOSYNTHESIS BI SCREENING MAMMOGRAPHY BI 2-VIEW BREAST INC CAD Aurelio Alexis MD [address] [place] [address] [facility] [address] [place] [address] Referral ID Status Reason Start Date Expiration Date V isits Requested Visits Authorized [id number] Closed Auto-Generate d Referral 10/30/2022 11/29/2023 1 1 [facility] for referral (narrative)* Outpatient Procedure (Routine) - Pending Review Specialty Diagnoses / Procedures Referred By Yesi sheth [facility] Diagnoses History of asthma Procedures SPIROMETRY WITH DILATOR IF OBSTRUCTED BRNCDILAT RSPSE SPMTRY PRE&POST-BRNCDILAT ADMN Kelsie Oconnell, HARRY.FRONT DESK COORDINATOR [address] [place] [address] [facility] [place] [address] [place] [address] Referral ID Status Reason Start Date Expiration Date Visits Requested Visits Authorized [id number] Pending Review Auto-Generat ed Referral 10/06/2023 11/04/2024 1 1 * Outpatient Procedure (Routine) - Pending Review Specialty Diagnoses / Procedures Referred By Contac t Referred To Contact [facility] [place] Diagnoses Chest pain, unspecified type Procedures STRESS ECHO TREADMILL ECHO TTHRC R-T 2D W/WO M-MODE COMPLETE REST&ST Kelsie Oconnell, HARRY.FRONT DESK COORDINATOR [address] [place] [address] [address] Referral ID Status Reason Start Date Expiration Date Visits Requested Visits Authorized [id number] Pending Review Auto-Generat ed Referral 10/06/2023 10/05/2024 1 1 * Outpatient Procedure (Routine) - Pending Review Specialty Diagnoses / Procedures Referred By Contac t Referred To Contact [facility] [place] Diagnoses Chest pain, unspecified type Procedures ECG COMPLETE ECG ROUTINE ECG W/LEAST 12 LDS W/I&R Kelsie Oconnell, DRAFTER MECHANICAL.FRONT DESK COORDINATOR [address] [place] [address] [address] Referral ID Status Reason Start Date Expiration Date Visits Requested Visits Authorized [id number] Pending Review Auto-Generat ed Referral 10/06/2023 10/05/2024 1 1 [facility] for referral (narrative)* Diagnostic Procedure Only (Routine) - New Request Specialty Diagnoses / Procedures Referred By Contac t Referred To Contact [facility] Diagnoses Breast cancer screening by mammogram Dense breasts Procedures NOMAN SCREENING W LUIS SCREENING DIGITAL BREAST TOMOSYNTHESIS BI SCREENING MAMMOGRAPHY BI 2-VIEW BREAST INC Aurelio Arroyo MD [address] [place] [address] [facility] [address] [place] [address] Referral ID Status Reason Start Date Expiration Date Visits Requested Visits Authorized [id number] New Request Auto-Generat ed Referral 12/19/2023 2025 1 1 [facility] for visit Narrative* Diagnostic Procedure Only (Routine) - Closed Specialty Diagnoses / Procedures Referred By Yesi sheth Referred To Contact [facility] Diagnoses Encounter for screening mammogram for breast cancer Procedures NOMAN SCREENING W LUIS SCREENING DIGITAL BREAST TOMOSYNTHESIS BI SCREENING MAMMOGRAPHY BI 2-VIEW BREAST INC CAD Aurelio Alexis MD [address] [place] [address] [facility] [address] [place] [address] Referral ID Status Reason Start Date Expiration Date V isits Requested Visits Authorized [id number] Closed Auto-Generate d Referral 10/30/2022 11/29/2023 1 1 [facility] Summary Purpose Family History No Family History Records FoundNo Family History Records FoundNo Family History Records FoundNo Family History Records Found Advance Directives No Advanced Directives Records FoundDocuments on File Type Date Recorded Patient Provider Engagement Executive Expl anation Advance Directive(s) 08/15/2021 9:03 AM Advance Directive(s) 01/11/2021 10:27 AM Documents on File Type Date Recorded Patient Provider Engagement Executive Expl anation Advance Directive(s) 08/15/2021 9:03 AM Advance Directive(s) 01/11/2021 10:27 AM Additional Source Comments INFORMATION SOURCE (unrecogn ized section and content) DATE CREATED AUTHOR 10/29/2019 [email or web address] DATE CREATED AUTHOR AUTHOR'S ORGANIZ ATION 04/22/2022 [facility] DATE CREATED AUTHOR AUTHOR'S ORGANIZ ATION 08/08/2024 [facility] DATE CREATED AUTHOR AUTHOR'S ORGANIZ ATION 01/16/2025 [facility] <item><item><item> Privacy Markings (unrecogniz ed section and content) Section Author: Bhavani Doe PROHIBITION ON REDISCLOSURE OF CONFIDENTIAL INFORMATION This notice accompanies a disclosure of information concerning a client made to you with the consent of such client. Section Author: Bhavani Doe PROHIBITION ON REDISCLOSURE OF CONFIDENTIAL INFORMATION This notice accompanies a disclosure of information concerning a client made to you with the consent of such client. Section Author: Bhavani Doe PROHIBITION ON REDISCLOSURE OF CONFIDENTIAL INFORMATION This notice accompanies a disclosure of information concerning a client made to you with the consent of such client. Source Comments (unrecognize d section and content) In the event this informatio n is protected by the Federal Confidentiality of Alcohol and Drug Abuse Patient Records regulations: The Federal rules restrict any use of the information to criminally investigate or prosecute any alcohol or drug abuse patient.[facility] the event this information is protected by the Federal Confidentiality of Alcohol and Drug Abuse Patient Records regulations: The Federal rules restrict any use of the information to criminally investigate or prosecute any alcohol or drug abuse patient.[facility] the event this information is protected by the Federal Confidentiality of Alcohol and Drug Abuse Patient Records regulations: The Federal rules restrict any use of the information to criminally investigate or prosecute any alcohol or drug abuse patient.[facility] the event this information is protected by the Federal Confidentiality of Alcohol and Drug Abuse Patient Records regulations: The Federal rules restrict any use of the information to criminally investigate or prosecute any alcohol or drug abuse patient.[facility] the event this information is protected by the Federal Confidentiality of Alcohol and Drug Abuse Patient Records regulations: The Federal rules restrict any use of the information to criminally investigate or prosecute any alcohol or drug abuse patient.[facility] the event this information is protected by the Federal Confidentiality of Alcohol and Drug Abuse Patient Records regulations: The Federal rules restrict any use of the information to criminally investigate or prosecute any alcohol or drug abuse patient.[facility] the event this information is protected by the Federal Confidentiality of Alcohol and Drug Abuse Patient Records regulations: The Federal rules restrict any use of the information to criminally investigate or prosecute any alcohol or drug abuse patient.[facility] the event this information is protected by the Federal Confidentiality of Alcohol and Drug Abuse Patient Records regulations: The Federal rules restrict any use of the information to criminally investigate or prosecute any alcohol or drug abuse patient.[facility] the event this information is protected by the Federal Confidentiality of Alcohol and Drug Abuse Patient Records regulations: The Federal rules restrict any use of the information to criminally investigate or prosecute any alcohol or drug abuse patient.[facility] the event this information is protected by the Federal Confidentiality of Alcohol and Drug Abuse Patient Records regulations: The Federal rules restrict any use of the information to criminally investigate or prosecute any alcohol or drug abuse patient.[facility] the event this information is protected by the Federal Confidentiality of Alcohol and Drug Abuse Patient Records regulations: The Federal rules restrict any use of the information to criminally investigate or prosecute any alcohol or drug abuse patient.[facility] the event this information is protected by the Federal Confidentiality of Alcohol and Drug Abuse Patient Records regulations: The Federal rules restrict any use of the information to criminally investigate or prosecute any alcohol or drug abuse patient.[facility] the event this information is protected by the Federal Confidentiality of Alcohol and Drug Abuse Patient Records regulations: The Federal rules restrict any use of the information to criminally investigate or prosecute any alcohol or drug abuse patient.[facility] the event this information is protected by the Federal Confidentiality of Alcohol and Drug Abuse Patient Records regulations: The Federal rules restrict any use of the information to criminally investigate or prosecute any alcohol or drug abuse patient.[facility] the event this information is protected by the Federal Confidentiality of Alcohol and Drug Abuse Patient Records regulations: The Federal rules restrict any use of the information to criminally investigate or prosecute any alcohol or drug abuse patient.[facility] the event this information is protected by the Federal Confidentiality of Alcohol and Drug Abuse Patient Records regulations: The Federal rules restrict any use of the information to criminally investigate or prosecute any alcohol or drug abuse patient.[facility] the event this information is protected by the Federal Confidentiality of Alcohol and Drug Abuse Patient Records regulations: The Federal rules restrict any use of the information to criminally investigate or prosecute any alcohol or drug abuse patient.[facility] Hospital[facility] the event this information is protected by the Federal Confidentiality of Alcohol and Drug Abuse Patient Records regulations: The Federal rules restrict any use of the information to criminally investigate or prosecute any alcohol or drug abuse patient.[facility] the event this information is protected by the Federal Confidentiality of Alcohol and Drug Abuse Patient Records regulations: The Federal rules restrict any use of the information to criminally investigate or prosecute any alcohol or drug abuse patient.[facility] Care Teams (unrecognized sec tion and content) Cartoon Designer Relationship Specialty Start Date End Date Aurelio Alexis MD [address] [place], [place] [id number] PCP - General Internal Medicine 10/30/10 Cartoon Designer Relationship Specialty Start Date End Date Aurelio Alexis MD [address] [place], [place] [address] PCP - General Internal Medicine 10/30/10 Cartoon Designer Relationship Specialty Start Date End Date Aurelio Alexis MD [address] [place] [address] PCP - General Internal Medicine 10/30/10 Cartoon Designer Relationship Specialty Start Date End Date Aurelio Alexis MD [address] [place] [address] PCP - General Internal Medicine 10/30/10 Cartoon Designer Relationship Specialty Start Date End Date Aurelio Alexis MD [address] [place] [address] PCP - General Internal Medicine 10/30/10 Cartoon Designer Relationship Specialty Start Date End Date Aurelio Alexis MD [address] [place] [address] PCP - General Internal Medicine 10/30/10 Cartoon Designer Relationship Specialty Start Date End Date Aurelio Alexis MD [address] [place] [address] PCP - General Internal Medicine 10/30/10 Cartoon Designer Relationship Specialty Start Date End Date Aurelio Alexis MD [address] [place] [address] PCP - General Internal Medicine 10/30/10 Cartoon Designer Relationship Specialty Start Date End Date Aurelio Alexis MD [address] [place] [address] PCP - General Internal Medicine 10/30/10 Cartoon Designer Relationship Specialty Start Date End Date Aurelio Alexis MD [address] [place] [address] PCP - General Internal Medicine 10/30/10 Cartoon Designer Relationship Specialty [place] [address] [place] [address], [place] [address] PCP - General Internal Medicine 10/30/10 Cartoon Designer Relationship Specialty Start Date End Date Aurelio Alexis MD [address] [place] [address] PCP - General Internal Medicine 10/30/10 Cartoon Designer Relationship Specialty Start Date End Date Aurelio Alexis MD [address] [place] [address] PCP - General Internal Medicine 10/30/10 Cartoon Designer Relationship Specialty Start Date End Date Aurelio Alexis MD [address] [place] [address] PCP - General Internal Medicine 10/30/10 Kelsie Oconnell, DRAFTER MECHANICAL.FRONT DESK COORDINATOR [address] [place] [address] Learning And Development Coordinator Internal Medicine 05/24/24 Charleen Cordero APRN.WIRE DRAWING DIE MAKER [address] [place] [address] Learning And Development Coordinator Internal Medicine 09/07/24 Cartoon Designer Relationship Specialty Start Date End Date Aurelio Alexis MD [address] [place] [address] PCP - General Internal Medicine 10/30/10 Kelsie Oconnell DRAFTER MECHANICAL.FRONT DESK COORDINATOR [address] [place] [address] Learning And Development Coordinator Internal Medicine 05/24/24 Charleen Cordero APRN.WIRE DRAWING DIE MAKER [address] [place] [address] Learning And Development Coordinator Internal Medicine 09/07/24 Cartoon Designer Relationship Specialty Start Date End Date Aurelio Alexis MD [address] [place] [address] PCP - General Internal Medicine 10/30/10 Charleen Cordero DRAFTER MECHANICAL.WIRE DRAWING DIE MAKER [address] [place] [address] Learning And Development Coordinator Internal Medicine 09/07/24 Kelsie Oconnell, DRAFTER MECHANICAL.FRONT DESK COORDINATOR [address] [place] [address] Learning And Development Coordinator Internal Medicine 11/03/24 Cartoon Designer Relationship Specialty Start Date End Date Aurelio Alexis MD [address] [facility] [place] [address] PCP - General Internal Medicine 10/30/10 Charleen Cordero DRAFTER MECHANICAL.WIRE DRAWING DIE MAKER [address] [place] [address] Learning And Development Coordinator Internal Medicine 09/07/24 Kelsie Oconnell, DRAFTER MECHANICAL.FRONT DESK COORDINATOR [address] [place] [address] Learning And Development Coordinator Internal Medicine 11/03/24 Reason for Visit (unrecogniz ed section and content) Reason Comments Follow Up Colonoscopy Reason Comments Vaginal Problem Reason Comments Results Reason Onset Date Comments Refill Request 11/26/2021 Reason Onset Date Comments Refill Request 02/02/2022 Reason Comments Patient Question Reason Comments Consult hemorrhoids Reason Comments Hemorrhoids Hemorrhoids bleeding prevention Reason Comments Follow Up stabbing chest pain comes and goes Reason Onset Date Comments Yearly Exam Breast Problem 12/19/2023 Mammogram at [facility] Reason Onset Date Comments Refill Request 09/13/2024 Reason Comments Yearly Exam FOR RECORDS PERTAINING TO PATIENTS WHO ARE OR HAVE BEEN ENROLLED IN A CHEMICAL DEPENDENCY/SUBSTANCEABUSE PROGRAM, SOME INFORMATION MAY BE OMITTED. This clinical summary was aggregated from multiple sources. Caution should be exercised in using it in the provision of clinical care. This summary normalizes information from multiple sources, and as a consequence, information in this document may materially change the coding, format and clinical context of patient data. In addition, data may be omitted in some cases. CLINICAL DECISIONS SHOULD BE BASED ON THE PRIMARY CLINICAL RECORDS. [facility] [employer] [facility]. provides no warranty or guarantee of the accuracy or completeness of information in this document.
[2025-05-27 17:03] LABS: AST(SGOT) 25 U/L (<=31); Alanine Aminotransfer ALT/SGPT 51 U/L (<=34); Albumin, Serum 4.5 g/dL (3.5-5.0); Alkaline Phosphatase 61 U/L (35-104); Anion Gap 11 (5-15); BUN 14 mg/dL (4-19); BUN/Creat Ratio 19.0 RATIO (10-20); Calcium,Total 9.3 mg/dL (7.6-11.0); Carbon Dioxide 24.6 mmol/L (21.0-32.0); Chloride 104 mmol/L (98-108); Estimated Creatinine Clearance 103.49 ml/min (50-250); Globulin 2.5 g/dL (2.2-4.2); Glucose 124 mg/dL (70-99); Lipase 26 U/L (13-75); Potassium 4.2 mmol/L (3.3-5.1)
[2025-05-27 17:08] LABS: Internal QC Validated? YES +Cl - CLEAR BKGD; Pregnancy, Serum, hCG Quali. NEGATIVE Negative
[2025-05-27 17:12] LABS: Mucous, Urine 0 SEEN /hpf (<or=2+)
[2025-05-27 17:30] LABS: Color, Urine Straw (Yellow); Glucose, Dipstick Normal (Normal); Ketone-Dipstick Negative (Negative); Leukocyte Esterase-Dipstick Negative /ul (Negative); Nitrite-Dipstick Negative (Negative); Occult Blood-Urine 25 /ul (Negative); Protein-Dipstick 30 mg/dl (Negative); Specific Gravity, Urine 1.010 (1.002-1.030); Urine Bilirubin Dipstick Negative (Negative)
[2025-05-27 17:43] VITALS: BP 106/74; PULSE 79; RESP 15; O2SAT 96
[2025-05-27 19:00] VITALS: BP 110/80; O2SAT 97
--- NOTE | 2025-05-27 19:07 | ED.RN ---
Lab called about the delay in urine results. Reply was she is the next one.
[2025-05-27 19:15] LABS: Red Blood Cells-Urine 0-5 SEEN /hpf (0-5); Squamous Epithelial Cells - UA 0-5 SEEN /hpf (5-10)
[2025-05-27 19:40] VITALS: BP 117/73; PULSE 79; RESP 16; TEMP 36.7; O2SAT 97
== END 2025-05-27 19:45 | disposition home or self-care (01) ==
PROVIDERS: Emergency Provider Emergency Medicine; PCP Internal Medicine; Visit Provider Emergency Medicine
DX: K29.70 Gastritis, unspecified, without bleeding (principal); K59.00 Constipation, unspecified
CPT/HCPCS: 74177; 80053; 81001; 83690; 84703; 85025; 96361; 96374; 96375; 99283; Q9967; A4216; J2405